=== PATIENT | female | born 1925 | race Caucasian/White ===

== ENCOUNTER 2016-07-11 08:46 | Inpatient (IN) | payer OTHER, MEDICARE ==
--- NOTE | 2016-07-11 09:09 | PDOC ---
History of Present Illness <Cezar Steele - Last Filed: 07/11/16 11:59> - History of Present Illness Initial Comments: 07/11/16 09:55 The patient is an 89 year old female with a past medical hx of diverticulitis, diverticulosis, s/p colostomy, sciatica, polymyalgia rheumatica who presents to ED complaining of a headache and bilateral leg weakness since yesterday. The patient reports she woke up yesterday with a severe headache. She notes the headache goes down the left side of her head. The patient states she attempted to get back into her bed and suddenly her legs gave out. She states her legs were not working as they normally do. She notes she was able to get into her bed. Later in the day she reports she had to crawl on the carpet and is reporting bruising to her knees and upper legs. She states she has been on Prednisone 10 mg for the past three weeks for her sciatica and polymyalgia rheumatica. She denies any paresthesias. The patient denies any chest pain, SOB The patient denies any fever, chills, nausea, vomiting PCP: Dr. Erazo <Pauline Watson - Last Filed: 07/11/16 12:25> - General Chief Complaint: Injury Stated Complaint: FALL/PAIN Time Seen by Provider: 07/11/16 09:08 Past History - Past Medical History Disorders: Yes (cystitis last 2010) HTN: Yes Liver Disease: (liver abscess 09/02) Thyroid Disease: Yes (hypothyroid) - Surgical History Orthopedic Surgery: (hip fx ORIF right side october 2010) - Psycho/Social/Smoking Cessation Hx Anxiety: No Suicidal Ideation: No Smoking History: Never smoked Have you smoked in the past 12 months: No Hx Alcohol Use: Yes (occasional) Substance Use Type: None <Cezar Steele - Last Filed: 07/11/16 11:59> <Pauline Watson - Last Filed: 07/11/16 12:25> - Past Medical History Allergies/Adverse Reactions: Allergies Allergy/AdvReac Type Severity Reaction Status Date / Time Sulfa (Sulfonamide Allergy Intermediate Hives Verified 07/11/16 09:19 Antibiotics) [Sulfa(Sulfonamide Antibiotics)] chickpeas Allergy Intermediate Swelling Uncoded 07/11/16 09:19 chocolate Allergy Intermediate Swelling Uncoded 07/11/16 09:19 ham Allergy Intermediate Swelling Uncoded 07/11/16 09:19 tuna Allergy Intermediate Swelling Uncoded 07/11/16 09:19 black beans Allergy Uncoded 07/11/16 09:19 Home Medications: Ambulatory Orders Losartan Potassium [Cozaar] 50 mg PO DAILY 01/16/14 Omeprazole [Prilosec (RX)] 20 mg PO DAILY 01/16/14 Levothyroxine [Synthroid -] 75 mcg PO DAILY #30 tablet 03/02/14 Lexapro - 20 mg PO DAILY 04/05/14 Prednisone [Deltasone -] 10 mg PO BID 04/05/14 Tylenol 650 mg PO PRN PRN 04/05/14 Gabapentin [Neurontin] 300 mg PO TID 07/11/16 Tramadol HCl/Acetaminophen [Tramadol-Acetaminophn 37.5-325] 1 each PO TID Review of Systems - Review of Systems Able to Perform ROS?: Yes Comments:: 07/11/16 09:56 GENERAL/CONSTITUTIONAL: No fever or chills. No weakness. HEAD, EYES, EARS, NOSE AND THROAT: No change in vision. No ear pain or discharge. No sore throat. CARDIOVASCULAR: No chest pain or shortness of breath. RESPIRATORY: No cough, wheezing, or hemoptysis. GASTROINTESTINAL: No nausea, vomiting, diarrhea or constipation. GENITOURINARY: No dysuria, frequency, or change in urination. MUSCULOSKELETAL: No joint or muscle swelling or pain. No neck or back pain. SKIN: +Bruising to bilateral knees and thighs. NEUROLOGIC: +Headache,bilateral leg weakness. No vertigo, loss of consciousness ENDOCRINE: No increased thirst. No abnormal weight change. HEMATOLOGIC/LYMPHATIC: No anemia, easy bleeding, or history of blood clots. ALLERGIC/IMMUNOLOGIC: No hives or skin allergy. <Pauline Watson - Last Filed: 07/11/16 12:25> *Physical Exam - Vital Signs Last Vital Signs Temp Pulse Resp BP Pulse Ox 97.1 F L 65 18 108/74 100 07/11/16 08:56 07/11/16 08:56 07/11/16 08:56 07/11/16 08:56 07/11/16 08:56 - Physical Exam Comments: 07/11/16 09:58 GENERAL: Awake, alert, and fully oriented, in no acute distress HEAD: No signs of trauma EYES: +Globe of the eye is intact, no lesion, vision preserved. PERRLA, EOMI, sclera anicteric, conjunctiva clear ENT: Auricles normal inspection, hearing grossly normal, nares patent, oropharynx clear without exudates. Moist mucosa NECK: Normal ROM, supple, no lymphadenopathy, JVD, bruits, or masses LUNGS: Breath sounds equal, clear to auscultation bilaterally. No wheezes, and no crackles HEART: Regular rate and rhythm, normal S1 and S2, no murmurs, rubs or gallops ABDOMEN: +Increased bowel sounds in all four quadrants, functioning colostomy. Soft, nontender, normoactive bowel sounds. No guarding, no rebound. No masses EXTREMITIES: Normal range of motion, no edema. No clubbing or cyanosis. No cords, erythema, or tenderness NEUROLOGICAL: +Able to lift both legs off of the bed. Cranial nerves II through XII grossly intact. Normal speech SKIN: +Vesicular rash to the ophthalmic distribution of the trigeminal nerve, not painful to touch. Bruising to the bilateral legs anteriorly and thighs, abrasions to bilateral knees that are bandaged. Warm, Dry, normal turgor <Pauline Watson - Last Filed: 07/11/16 12:25> Heart Score/ECG Review - ECG Impressions Comment:: 07/11/16 09:[address] Steele Sinus bradycardia at a rate of [address] abnormality No change in EKG from December 2013. <Pauline Watson - Last Filed: 07/11/16 12:25> ED Treatment Course - LABORATORY CBC & Chemistry Diagram: 07/11/16 10:02 07/11/16 10:02 <Cezar Steele - Last Filed: 07/11/16 11:59> - LABORATORY CBC & Chemistry Diagram: 07/11/16 10:02 07/11/16 10:02 - RADIOLOGY Radiograph Interpretation: 07/11/16 11:34 RAD/KNEE 3 POS-LEFT Left knee: Fall. Pain. AP, lateral and sunrise views reveal degenerative changes, vascular calcifications, growth arrest lines in the proximal tibia but no sign of acute fracture or subluxation. Swelling, foreign body or soft tissue air is not seen. There is no sign of an effusion. If symptoms persist, further imaging and orthopedic consultation may be of help. Impression: No acute pathology. Reported By: Parveen Ospina MD 07/11/16 1116 Right knee Xray AP, lateral and sunrise views reveal no sign of fracture, subluxation or bone destruction. There is no loss of bone density, degenerative changes, vascular calcifications and no sign of swelling, foreign body or soft tissue air. An effusion is not seen. Impression: No acute pathology. Reported By: Parveen Ospina MD 07/11/16 1117 07/11/16 12:10 Pelvis XRay Impression: Imaging reveals degenerative changes, previous right hip pinning, pelvic phleboliths but no sign of a gross fracture or subluxation. There may be some dense bowel or a left sided ostomy bag superimposed over the left iliac crest. Correlation recommended. If symptoms persist, further imaging may be of help. Reported by: Parveen Ospina MD 07/11/16 1120 Right hip Xray Impression: The hip has similar appearance to that seen on 01/31/14. Reported: Parveen Ospina MD 07/11/16 1115 Left hip Xray Limited views reveal degenerative changes, pelvic phleboliths, and no sign of a gross fracture. There are other vascular calcifications. Reported by: Parveen Ospina MD 07/11/16 1113 Chest Xray Impression: Reveals improvement in aeration since 02/11/14. There is a scoliosis , degenerative spine and shoulder changes with possible old rotator cuff injuries, clear lungs, normal heart and unfolded aorta. The angles are sharp and the soft tissues are intact. An acute chest process is not seen. Reported by: Parveen Ospina MD 07/11/16 1113 <Pauline Watson - Last Filed: 07/11/16 12:25> Medical Decision Making - Medical Decision Making 07/11/16 11:[address] Erazo at 11:19, the patients case was discussed. 07/11/16 11:[address] James at 11:31 via answering service, awaiting call back. Dr. James called back at 11:32. The patients case was discussed. Dr. James came and evaluated the patient. 07/11/16 12:18 Microblogged the Hospitalist, Dr. Kemp, at 11:45. Dr. Kemp called at 11:47, the patients case was discussed. Dr. Kemp agrees to admit the patient. 07/11/16 12:20 The patient is an 89 year old female with a past medical hx of diverticulitis, diverticulosis, s/p colostomy, sciatica, polymyalgia rheumatica who presents to ED complaining of a headache and bilateral leg weakness since yesterday. On physical exam, the patient is found to have a vesicular rash to the ophthalmic distribution of the trigeminal nerve, which appears to be shingles. The patient is able to lift both legs off of the bed. There is bruising to bilateral legs anteriorly. Extended neuro exam is deferred due to the patient's comfort. The plan is to order EKG, labs, CXR, CT head. The patient will be admitted under the Hospitalist, Dr. Kemp. The plan for admission was discussed with the patient and family who agree to the plan of admission. All questions answered. <Pauline Watson - Last Filed: 07/11/16 12:25> *DC/Admit/Observation/Transfer - Discharge Dispostion Admit: Yes - Attestations Physician Attestion: 07/11/16 09:08 I, Dr. Cezar Steele, attest that this document has been prepared under my direction and personally reviewed by me in its entirety. I further attest, that it accurately reflects all work, treatment, procedures and medical decision -making performed by me. <Cezar Steele - Last Filed: 07/11/16 11:59> - Attestations Scribe Attestion: 07/11/16 09:46 Documentation prepared by Pauline Watson, acting as manager of medical for Cezar Steele MD/DO. 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
[2016-07-11 10:16] LABS: BASOPHIL 0.2 % (0-2.0); MCH 30.2 pg (25.7-33.7); MCHC 32.2 g/dl (32.0-36.0); MEAN PLT VOLUME 7.6 fl (7.5-11.1); NEUTROPHILS 90.7 % (42.8-82.8); PLATELET COUNT 168 K/MM3 (134-434); RDW 17.5 % (11.6-15.6); WHITE BLOOD COUNT 17.5 K/mm3 (4.0-10.0)
[2016-07-11 10:58] LABS: ALBUMIN 3.8 g/dl (3.4-5.0); CALCIUM 9.7 mg/dL (8.5-10.1); COCKROFT - GAULT 24.361; CREATININE 1.6 mg/dL (0.55-1.02)
[2016-07-11 11:04] LABS: BILIRUBIN,TOTAL 1.2 mg/dL (0.2-1.0); TOT PROT 7.2 g/dl (6.4-8.2); TROPONIN I 0.19 ng/ml (0.00-0.05)
[2016-07-11 11:20] LABS: INR 0.97 (0.82-1.09); PROTHROMBIN TIME (PATIENT) 10.7 SEC (9.98-11.88)
[2016-07-11] MEDS ORDERED: SODIUM CHLORIDE 1,000 ML IV STA (12:18)
--- NOTE | 2016-07-11 12:24 | HP ---
CHIEF COMPLAINT:"my face hurts" PCP: Dr Erazo HISTORY OF PRESENT ILLNESS: This is an 89 yo F with PMH of diverticulitis s/p colostoly 3 yrs ago, sciatica , polymyalgia rheumatica, paroxysmal a fib, hx gib, hx hepatic abscess 2011 and hypothyroidism, who presents due to h/a and fall. Per daughter and patient, she was in usual health until yesterday morning, when she developed severe L sided h /a and facial pain. She was so uncomfortable that she did not eat or drink anything since. This morning she woke up feeling very weak and felt her legs give out when she tried to stand up from bed. She crawled on the floor and abraised her knees. OF note, she has been on prednisone for the past 3 weeks for her polymyalgia. this has never happened to her before. she has no history of Mi or chf. she denies f/c, n/v, chest pain, le edema, sob, palpitations or weight gain. she denies prior trauma, paresthesia or focal weakness. Denies dysuria or diarrhea. Last TTE showed some degree of diastolic heart failure ER course was notable for: (1)labs (2)cxr, hip, knee and pelvis xr (3)ivf Recent Travel: denies PAST MEDICAL HISTORY: as above PAST SURGICAL HISTORY: colostomy, ortho surgery on hips, shoulder Social History: lives alone with aid Smoking: denies Alcohol:denies Drugs: denies Family History: no cardiac history Allergies Sulfa (Sulfonamide Antibiotics) [Sulfa(Sulfonamide Antibiotics)] Allergy ( Intermediate, Verified 07/11/16 09:19) Hives chickpeas Allergy (Intermediate, Uncoded 07/11/16 09:19) Swelling chocolate Allergy (Intermediate, Uncoded 07/11/16 09:19) Swelling swelling of tongue/ diff with speech ham Allergy (Intermediate, Uncoded 07/11/16 09:19) Swelling tuna Allergy (Intermediate, Uncoded 07/11/16 09:19) Swelling swelling of tongue/ speech difficulty black beans Allergy (Uncoded 07/11/16 09:19) HOME MEDICATIONS: Home Medications Medication Instructions Recorded Losartan Potassium [Cozaar] 50 mg PO DAILY 01/16/14 Omeprazole [Prilosec (RX)] 20 mg PO DAILY 10/26/14 Levothyroxine [Synthroid -] 75 mcg PO DAILY #30 tablet 03/02/14 Lexapro - 20 mg PO DAILY 04/05/14 Prednisone [Deltasone -] 10 mg PO BID 04/05/14 Tylenol 650 mg PO PRN PRN 04/05/14 Gabapentin [Neurontin] 300 mg PO TID 07/11/16 Tramadol HCl/Acetaminophen 1 each PO TID 07/11/16 [Tramadol-Acetaminophn 37.5-325] REVIEW OF SYSTEMS CONSTITUTIONAL: Absent: fever, chills, weight change HEENT: Absent: rhinorrhea, nasal congestion, throat pain CARDIOVASCULAR: Absent: chest pain, syncope, palpitations RESPIRATORY: Absent: cough, shortness of breath GASTROINTESTINAL: Absent: abdominal pain, abdominal distension, nausea, vomiting, diarrhea GENITOURINARY: Absent: dysuria, frequency MUSCULOSKELETAL: Absent: back pain, neck pain SKIN: Absent: itching, pallor HEMATOLOGIC/IMMUNOLOGIC: Absent: frequent infections ENDOCRINE: Absent: heat intolerance, cold intolerance NEUROLOGIC: Absent: focal weakness or paresthesias, seizure PSYCHIATRIC: Absent: anxiety, depression PHYSICAL EXAMINATION Vital Signs - 24 hr 07/11/16 08:56 Temperature 97.1 F L Pulse Rate 65 Respiratory 18 Rate Blood Pressure 108/74 O2 Sat by Pulse 100 Oximetry (%) GENERAL: Awake, alert, and fully oriented, in mild distress. HEAD: L sided erythema, small vesicles by hairline, not crossing midline anteriorly or posteriorly EYES: Pupils equal, round and reactive to light, extraocular movements intact, L sclera injected. no ptosis EARS, NOSE, THROAT: Dry mucous membranes. NECK: supple without lymphadenopathy, JVD, or masses. LUNGS: mild bibasilar crackles HEART: Regular rate and rhythm, normal S1 and S2 grade 3 systolic murmur at r sternal boarder ABDOMEN: Soft, nontender, not distended, normoactive bowel sounds, no guarding, no rebound, no masses. No hepatomegaly or splenomegaly. LLQ colostoly with a piece of solid stool MUSCULOSKELETAL: No CVA tenderness. UPPER EXTREMITIES: No peripheral edema. LOWER EXTREMITIES: 1+ pulses, warm, well-perfused. No peripheral edema. bruised skin on anterior thighs, b/l knee abrasions NEUROLOGICAL: Cranial nerves II-XII intact. Normal speech. 5/5 ur strength b/ l. 5/5 plantarflexion, 4/5 dorsiflexion, 4/5 thigh flexion, 1+ patellar reflexes b/l PSYCHIATRIC: Cooperative. Good eye contact. Appropriate mood and affect. SKIN: lesions as above Laboratory Results - last 24 hr 07/11/16 07/11/16 07/11/16 10:02 10:02 10:02 WBC 17.5 H RBC 5.12 D Hgb 15.5 H D Hct 48.2 H D MCV 94.0 MCHC 32.2 RDW 17.5 H Plt Count 168 D MPV 7.6 Neutrophils % 90.7 H Lymphocytes % 3.0 L D Monocytes % 6.1 Eosinophils % 0.0 D Basophils % 0.2 D INR 0.97 Sodium 141 Potassium 4.0 Chloride 104 Carbon Dioxide 29 Anion Gap 8 BUN 39 H D Creatinine 1.6 H D Creat Clearance w eGFR 30.42 Random Glucose 132 H D Calcium 9.7 Total Bilirubin 1.2 H D AST 50 H D ALT 34 D Alkaline Phosphatase 116 D Creatine Kinase 1000 H D Troponin I 0.19 H B-Natriuretic Peptide 1766.34 H Total Protein 7.2 D Albumin 3.8 D ASSESSMENT/PLAN: This is an 89 yo F with PMH of diverticulitis s/p colostoly 3 yrs ago, sciatica , polymyalgia rheumatica, paroxysmal a fib, hx gib, hx hepatic abscess 2011 and hypothyroidism, who presents due to h/a and fall. 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 use and old age -not disseminated -valacyclovir 1000 daily renal dosing, may adjust as fenal fxn improves -opth consult appreciated, no retinal involvement, does not require iv antivirals JASS -creat 1.6 (baseline 0.6) -IV hydration -hold cozaar -trend creat Demand ischemia -trop 0.19, trend -due to denydration -ivf Skin abrasions: -bacitracin tp polymyalgia rheumatica -continue pred 10 d, neurontin, tramadol Hypothyroidism -synthroid, ppi HTN -now normotensive -norvas with hold parameters FEN NS@100 lytes stable -na restricted diet Linnea, ppi Dispo: med [facility] Problem List - Problem (1) Abnormal bruising Code(s): R23.8 - OTHER SKIN CHANGES (2) Elevated troponin level Code(s): R74.8 - ABNORMAL LEVELS OF OTHER SERUM ENZYMES (3) Generalized weakness Code(s): R53.1 - WEAKNESS (4) Hypothyroid Code(s): E03.9 - HYPOTHYROIDISM, UNSPECIFIED Qualifiers: Hypothyroidism type: acquired Qualified Code(s): E03.9 - Hypothyroidism , unspecified (5) Polymyalgia rheumatica Code(s): M35.3 - POLYMYALGIA RHEUMATICA (6) Shingles outbreak Code(s): B02.9 - ZOSTER WITHOUT COMPLICATIONS Qualifiers: 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 - New Patient This patient is new to me today: Yes Date on this admission: 07/11/16 - Critical Care Critical Care patient: No
--- NOTE | 2016-07-11 12:25 | EKG ---
Test Reason : Blood Pressure : / mmHG Vent. Rate : 059 BPM Atrial Rate : 059 BPM P-R Int : 198 ms QRS Dur : 110 ms QT Int : 428 ms P-R-T Axes : 039 -22 068 degrees QTc Int : 423 ms SINUS BRADYCARDIA MODERATE VOLTAGE CRITERIA FOR LVH, MAY BE NORMAL VARIANT NONSPECIFIC ST ABNORMALITY ABNORMAL ECG WHEN COMPARED WITH ECG OF 21-JAN-2014 09:34, PREMATURE VENTRICULAR COMPLEXES ARE NO LONGER PRESENT ABERRANT CONDUCTION IS NO LONGER PRESENT T WAVE INVERSION LESS EVIDENT IN LATERAL LEADS Confirmed by BUNNY STEELE MD ([id number]) on 07/11/2016 12:25:47 PM Referred By: Confirmed By:BUNNY STEELE MD
[2016-07-11] MEDS ORDERED: ACYCLOVIR INJECTION 1,000 MG in DEXTROSE 5%-WATER - 100 ML IVPB ONE (12:42)
--- NOTE | 2016-07-11 12:54 | CON.CARD ---
Consult Consult Specialty:: Cardiology Referred by:: Dr. Erazo Reason for Consultation:: weakness, falls, elevated bnp, elevated troponin - History of Present Illness Chief Complaint: falls, weakness History of Present Illness: 89 year old woman with a history of diverticulitis s/p colostomy 2013, Pafib, admitted with headaches, weakness, falls at home incidentally noted to have slightly elevated troponin and elevated bnp. Pt. seen and examined today, sleeping but arousable, weak. denies any chest pain prior to coming in but had an episode of chest discomfort while lying in the er stretcher that lasted a few seconds. denies any other chest pain. no palpitations. no sob. no pnd, orthopnea, or LE edema. no lightheadedness or dizziness. no syncope. - History Source History Provided By: Patient, Family Member Limitations to Obtaining History: Physical Impairment - Past Medical History Cardio/Vascular: Yes: AFIB, HTN, Hyperlipdemia Gastrointestinal: Yes: Diverticulosis, GERD Infectious Disease: Yes: Other (LIVER ABSCESS) Psych: Yes: Depression Endocrine: Yes: Hypothyroidism - Past Surgical History Past Surgical History: Yes: Hysterectomy - Alcohol/Substance Use Hx Alcohol Use: Yes (occasional) - Smoking History Smoking history: Never smoked Have you smoked in the past 12 months: No - Social History Usual Living Arrangement: Alone ADL: Independent History of Recent Travel: No Home Medications - Allergies Allergies/Adverse Reactions: Allergies Allergy/AdvReac Type Severity Reaction Status Date / Time Sulfa (Sulfonamide Allergy Intermediate Hives Verified 07/11/16 09:19 Antibiotics) [Sulfa(Sulfonamide Antibiotics)] chickpeas Allergy Intermediate Swelling Uncoded 07/11/16 09:19 chocolate Allergy Intermediate Swelling Uncoded 07/11/16 09:19 ham Allergy Intermediate Swelling Uncoded 07/11/16 09:19 tuna Allergy Intermediate Swelling Uncoded 07/11/16 09:19 black beans Allergy Uncoded 07/11/16 09:19 - Home Medications Home Medications: Ambulatory Orders Losartan Potassium [Cozaar] 50 mg PO DAILY 01/16/14 Omeprazole [Prilosec (RX)] 20 mg PO DAILY 01/16/14 Levothyroxine [Synthroid -] 75 mcg PO DAILY #30 tablet 03/02/14 Lexapro - 20 mg PO DAILY 04/05/14 Prednisone [Deltasone -] 10 mg PO BID 04/05/14 Tylenol 650 mg PO PRN PRN 04/05/14 Gabapentin [Neurontin] 300 mg PO TID 07/11/16 Tramadol HCl/Acetaminophen [Tramadol-Acetaminophn 37.5-325] 1 each PO TID Family Disease History - Family Disease History Family History: Denies Review of Systems - Review of Systems Constitutional: reports: Malaise, Weakness. denies: No Symptoms, Chills, Diaphoresis, Fever, Lethargy, Loss of Appetite, Night Sweats, Unintentional Wgt. Loss, Other Eyes: reports: Other (rash over L orbit and face). denies: No Symptoms, Blind Spots, Blurred Vision, Double Vision, Eye Pain, Floaters, Photophobia, Recent Change in Vision HENT: denies: No Symptoms, Difficult Swallowing, Ear Discharge, Ear Pain, Epistaxis, Gingival Bleeding, Hearing Loss, Mouth Swelling, Nasal Congestion, Ocular Prosthesis, Throat Pain, Toothache, Ringing in Ears, Other Neck: denies: No Symptoms, Decreased ROM, Lumps, Pain on Movement, Stiffness, Swollen Glands, Tenderness, Other Cardiovascular: reports: Chest Pain. denies: No Symptoms, Edema, Palpitations, Shortness of Breath, Other Respiratory: denies: No Symptoms, Cough, Exercise Intolerance, Hemoptysis, Orthopnea, PND, Snoring, SOB, SOB on Exertion, Wheezing, Other Gastrointestinal: denies: No Symptoms, Abdominal Pain, Bloating, Constipation, Diarrhea, Dysphagia, Indigestion, Melena, Nausea, Rectal Bleeding, Vomiting, Vomiting Blood, Other Genitourinary: denies: No Symptoms, Burning, Discharge, Dysuria, Flank Pain, Frequency, Hematuria, Incontinence, Lesions, Menses, Pain, Testicular Mass, Testicular Pain, Testicular Swelling, Urgency, Vaginal Bleeding, Other Breasts: denies: No Symptoms Reported, See HPI, Breast Implants, Discharge from Nipple, Lumps, Pain, Skin Changes, Other Musculoskeletal: reports: Muscle Weakness. denies: No Symptoms, Back Pain, Crepitus, Decreased ROM, Extremity Pain, Joint Pain, Joint Swelling, Muscle Pain , Muscle Cramps, Other Integumentary: denies: No Symptoms, Blister, Bruising, Change in Color, Eczema, Erythema, Incision, Lesions, Lump, Pallor, Pruritis, Rash, Wound, Other Neurological: denies: No Symptoms, Change in LOC, Change in Speech, Confusion, Dizziness, Headache, Incoordination, Numbness, Parasthesia, Pre-Existing Deficit , Seizure, Syncope, Tremors, Unsteady Gait, Weakness, Other Endocrine: denies: No Symptoms, Excessive Sweating, Flushing, Increased Hunger, Increased Thirst, Intolerance to Cold, Intolerance to Heat, Unexplained Weight Gain, Unexplained Weight Loss, Other Hematology/Lymphatic: denies: No Symptoms, Easily Bruised, Excessive Bleeding, Swollen Glands, Other Psychiatric: denies: No Symptoms, Altered Sleep Pattern, Anxiety, Depression, Hallucinations, Panic, Paranoia, Suicidal, Other - Risk Factors Known Risk Factors: Yes: Age, Hypercholesterolemia, Hypertension Vital Signs: Vital Signs Temperature 97.1 F L 07/11/16 08:56 Pulse Rate 65 07/11/16 08:56 Respiratory Rate 18 07/11/16 08:56 Blood Pressure 108/74 07/11/16 08:56 O2 Sat by Pulse Oximetry (%) 100 07/11/16 08:56 Constitutional: Yes: Well Nourished, No Distress, Calm Eyes: Yes: Other (rash over L face). No: WNL, Conjunctiva Clear, EOM Intact, Cataracts, Diplopia, Occular Prosthesis, PERRL, Ptosis, Sclera Icterus, Tearing HENT: Yes: WNL, Atraumatic, Normocephalic Neck: Yes: WNL, Supple, Trachea Midline Respiratory: Yes: WNL, Regular, CTA Bilaterally. No: Rales, Rhonchi, Wheezes Gastrointestinal: Yes: WNL, Normal Bowel Sounds, Soft. No: Distention, Tenderness Renal/: Yes: WNL Cardiovascular: Yes: WNL, Regular Rate and Rhythm. No: Bradycardia, Tachycardia , Pulse Irregular, Gallop, Rub, Varicosities JVD: No Carotid Bruit: No PMI: Non-Displaced Heart Sounds: Yes: S1, S2. No: Split S2, S3, S4, Clicks, Gallop, Rub, Bruit Murmur: No: Systolic Murmur, Diastolic Murmur Musculoskeletal: Yes: Muscle Weakness Extremities: Yes: WNL Edema: No Peripheral Pulses WNL: Yes Peripheral Pulses: 2+ Left Doralis Pedis, 2+ Right Dorsalis Pedis Integumentary: Yes: WNL Neurological: Yes: Oriented, Weakness Psychiatric: Yes: Alert, Oriented - Other Data Labs, Other Data: INR, PTT INR 0.97 (0.82-1.09) 07/11/16 10:02 ekg-sinus bradycardia 59bpm, LVH, NSST, possible lateral ischemia, no sig change from ekg 2014 Echo: Pending Imaging - Results Chest X-ray: Report Reviewed, Image Reviewed EKG: Report Reviewed, Image Reviewed Other: Report Reviewed, Image Reviewed Assessment/Plan 89 year old woman with a history of diverticulitis s/p colostomy 2014, Pafib, admitted with headaches, weakness, falls at home incidentally noted to have slightly elevated troponin and elevated bnp. elevated troponin and bnp -troponin not sig elevated, likely secondary to dehydration, elevated CK, FEDE -pt not in decompensated CHF -IVF hydration -check Echo -hold off on diuresis, does not require full AC at this time -ekg unchanged from ekg 2013 -does not require telemetry at this point -trend serial cardiac enzymes Elevated CK -likely secondary to falls, rhabdo -hydration, monitor CK levels Paroxysmal AFib -taken off AC 2013 -NSR/Sinus olive on presentation -does not require AV balwinder blockers HTN-normal, low normal -hold anti-htn meds Possible Zoster L orbit -optho eval -consider ID eval
[2016-07-11] MEDS ORDERED: valACYclovir HCL 1000 MG TABLET PO ONE (13:07)
--- NOTE | 2016-07-11 14:22 | PN ---
Teaching Attending Note Name of Resident: Lucina Brown ATTENDING PHYSICIAN STATEMENT I saw and evaluated the patient. I reviewed the resident's note and discussed the case with the resident. I agree with the resident's findings and plan as documented. SUBJECTIVE: CC: L sided MALDONADO , and fall yesterday . HPI: 89 y/o lady with h/o HTN, ruptured diverticulum s/p bowel resection and colostomy in 2013 , h/o P A fib, PMR, who presented with L sided MALDONADO , and fall. she felt L sided MALDONADO yesterday , but denied any change in her vision. MALDONADO subsided yesterday but again had severe pain in L scalp with redness in skin over that area today. yesterday , she had a fall , as her knees gave out , no LOC or light headedness or CP or palpitation before or after . she was not able to get up alone, and had to crawl on her knees to next room to grab phone . neighbour then helped her. she was down x 20 min only. she denies recurrent falls. poor po intake lately x2 days OBJECTIVE: NAD , Awake, alert and oriented. pleasant and cooperative HEENT: dry MM, skin around L orbit, and yazidism and scalp with erythema and tenderness to palpation , with small vesicles on yazidism near hair line . no involvement of ear or external ear canal . eyes with round equal pupils , and congested conjunctiva in L eye . nl EOMI CV: RRR, 2/6 SM at RUSB. no JVD Lungs : CTAB ext : no edema . has bruising o b/l anterior thighs. abrasions on knees. DP 2+ R, 1+ L Abd : soft, NT, nl BS , old scar on mid abd and L colostomy bag . 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 She was found to have Herpes zoster, JASS, and mild rhabdo 1- L sided facial herpes zoster. L conunctiva is congested but there is no retinitis , uviitis or scleritis. - will start po valcayclovir 1000 mg daily per her weight and renal function ( spoke to pharmacist ) . retina is not involved , so unlikely to need IV antiviral - will control pain . - she is already on steroids for PMR. any way evidence of benefit is not strong - might start neurontin fro post herpetic pain - ID consult - await Ophthalmology Recs . 2- JASS : pt is volume depleted clinically. although BNP is elevated , she does not appear fluid overloaded. - give IVF and monitor while on valcyclovir 3- mild rhabdomyolysis: UA is not available yet. - IVF 4- Leukocytosis: likely reactive . no evidenc eof PNA , no urinary complaints . no cough or other source of infection - uA pending - hold off Abx .- repeat in am 5-Trop elevation , likely due to JASS. no CP or acute EKG changes to suspect ACS. EKG with L axis, TWI in AVL , and J point elevation in septal leads. compared to one in 2014 monitor 6- h/o P A fib, off Ag due to GI bleed no need for BB at this point 7- monitor elevated LFTs ( likely due to Rhabdo ) HLOC
[2016-07-11] MEDS ORDERED: ACYCLOVIR INJECTION 1,000 MG in DEXTROSE 5%-WATER - 250 ML IVPB ONE (14:45)
[2016-07-11] MEDS ORDERED: ACETAMINOPHEN 325 MG TABLET (FP) PO PRN (16:03)
--- NOTE | 2016-07-11 16:03 | CONSULT ---
Consult Consult Specialty:: infectious diseases Reason for Consultation:: herpes - History of Present Illness Chief Complaint: weakness, History of Present Illness: 89 y/o female with multiple medical problems including h/o diverticulitis s/p colostomy 3 yrs ago, sciatica, polymyalgia rheumatica, paroxysmal a fib, hx gib , hx hepatic abscess 2011 and hypothyroidism,was brought to the hospital because of fall and weakness. patient has been on prednisone for last 3 weeks for her flare of polymyalgia patient was so weak that she had to crawl on the floor and suffered abrasion to her knee joint patient also has developed left sided facial herpes zoster and suffered some abrasion to the thigh patient also has it extending to the nose some small vesicles can be seen there patient was evaluated by the opthalm and according to him there is no involvement of the eye patient denies any headache fevers nausea or vomiting - History Source History Provided By: Patient Limitations to Obtaining History: No Limitations - Past Medical History Cardio/Vascular: Yes: AFIB, HTN, Hyperlipdemia Gastrointestinal: Yes: Diverticulosis, GERD Infectious Disease: Yes: Other (LIVER ABSCESS) Psych: Yes: Depression Endocrine: Yes: Hypothyroidism - Past Surgical History Past Surgical History: Yes: Hysterectomy - Alcohol/Substance Use Hx Alcohol Use: Yes (occasional) - Smoking History Smoking history: Never smoked Have you smoked in the past 12 months: No - Social History Usual Living Arrangement: Alone ADL: Independent History of Recent Travel: No Home Medications - Allergies Allergies/Adverse Reactions: Allergies Allergy/AdvReac Type Severity Reaction Status Date / Time Sulfa (Sulfonamide Allergy Intermediate Hives Verified 07/11/16 09:19 Antibiotics) [Sulfa(Sulfonamide Antibiotics)] chickpeas Allergy Intermediate Swelling Uncoded 07/11/16 09:19 chocolate Allergy Intermediate Swelling Uncoded 07/11/16 09:19 ham Allergy Intermediate Swelling Uncoded 07/11/16 09:19 tuna Allergy Intermediate Swelling Uncoded 07/11/16 09:19 black beans Allergy Uncoded 07/11/16 09:19 - Home Medications Home Medications: Ambulatory Orders Losartan Potassium [Cozaar] 25 mg PO DAILY 01/16/14 Omeprazole [Prilosec (RX)] 20 mg PO DAILY 01/16/14 Levothyroxine [Synthroid -] 75 mcg PO DAILY #30 tablet 03/02/14 Escitalopram Oxalate [Lexapro -] 20 mg PO BID 04/05/14 Prednisone [Deltasone -] 5 mg PO BID 04/05/14 Gabapentin [Neurontin] 300 mg PO QID 07/11/16 Tramadol HCl/Acetaminophen [Tramadol-Acetaminophn 37.5-325] 1 each PO QID Review of Systems - Review of Systems Constitutional: reports: Lethargy, Weakness Eyes: reports: Other (redness of the left eye vesicles around the eye left side, extending to the nose) HENT: denies: Hearing Loss Cardiovascular: reports: No Symptoms Respiratory: reports: No Symptoms Gastrointestinal: reports: No Symptoms Musculoskeletal: reports: Other (knee pain) Integumentary: reports: Bruising (on both knee joint) Neurological: reports: No Symptoms Endocrine: reports: No Symptoms Hematology/Lymphatic: reports: No Symptoms Psychiatric: reports: No Symptoms Physical Exam Vital Signs: Vital Signs Temperature 97.1 F L 07/11/16 08:56 Pulse Rate 54 L 07/11/16 15:24 Respiratory Rate 18 07/11/16 15:24 Blood Pressure 139/70 07/11/16 15:24 O2 Sat by Pulse Oximetry (%) 97 07/11/16 15:24 Constitutional: Yes: Calm, Mild Distress, Thin Eyes: Yes: Tearing (of left eye,redness of left eye) HENT: Yes: Atraumatic, Normocephalic Neck: Yes: Supple, Trachea Midline Cardiovascular: Yes: Regular Rate and Rhythm Respiratory: Yes: Regular, CTA Bilaterally Gastrointestinal: Yes: Normal Bowel Sounds, Soft Musculoskeletal: Yes: WNL Extremities: Yes: Other (bruising on both knee joint bruising nad redness of both thigh) Integumentary: Yes: Erythema, Other Neurological: Yes: Alert, Oriented Psychiatric: Yes: Alert, Oriented Imaging - Results Chest X-ray: Report Reviewed, Image Reviewed X-ray: Report Reviewed, Image Reviewed Cat Scan: Report Reviewed, Image Reviewed Assessment/Plan Problem List - Problem (1) Abnormal bruising Code(s): R23.8 - OTHER SKIN CHANGES (2) Elevated troponin level Code(s): R74.8 - ABNORMAL LEVELS OF OTHER SERUM ENZYMES (3) Generalized weakness Code(s): R53.1 - WEAKNESS (4) Hypothyroid Code(s): E03.9 - HYPOTHYROIDISM, UNSPECIFIED Qualifiers: Hypothyroidism type: acquired Qualified Code(s): E03.9 - Hypothyroidism , unspecified (5) Polymyalgia rheumatica Code(s): M35.3 - POLYMYALGIA RHEUMATICA (6) Shingles outbreak Code(s): B02.9 - ZOSTER WITHOUT COMPLICATIONS Qualifiers: Herpes zoster complications: with ocular involvement Herpes zoster ocular complication detail: unspecified herpes zoster eye disease Qualified Code(s): B02.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
[2016-07-11] MEDS ORDERED: valACYclovir HCL 500 MG TABLET (FP) PO SCH (16:30)
[2016-07-11] MEDS: traMADol HCL 50 MG TABLET PO PRN (16:56)
[2016-07-11 17:17] VITALS: BMI 25.1
[2016-07-11] MEDS: CLINDAMYCIN HCL 150 MG CAPSULE (FP) PO SCH (17:59)
[2016-07-11] MEDS: SODIUM CHLORIDE 1,000 ML IV SCH (18:00)
[2016-07-11] MEDS ORDERED: AMPICILLIN NA/SULBACTAM NA 3 GM in SODIUM CHLORIDE 100 ML IVPB SCH (18:00)
[2016-07-11] MEDS ORDERED: PATIENT'S OWN MEDICATION (NON-FORMULARY) (Tramadol Hcl/Acetaminophen [Tramadol-Acetaminoph PO SCH (22:00)
[2016-07-11] MEDS ORDERED: predniSONE 10 MG TABLET (UD) PO SCH (22:00)
[2016-07-11] MEDS: CLOTRIMAZOLE 1% CREAM 15 GM TUBE TP SCH (22:36)
[2016-07-11] MEDS: ENOXAPARIN NA (PORCINE) 30 MG/0.3 ML DISP.SYRIN SQ SCH (22:36)
[2016-07-11] MEDS: GABAPENTIN 300 MG CAPSULE (FP) PO SCH (22:36)
[2016-07-12] MEDS: CLINDAMYCIN HCL 150 MG CAPSULE (FP) PO SCH ×4 (00:11→18:06)
[2016-07-12 01:29] LABS: URINE APPEARANCE CLOUDY; URINE BILIRUBIN NEGATIVE (NEGATIVE); URINE COLOR DKYELLOW; URINE GLUCOSE (UA) NEGATIVE (NEGATIVE); URINE KETONE NEGATIVE (NEGATIVE); URINE NITRITE POSITIVE (NEGATIVE); URINE UROBILINOGEN NEGATIVE E.U./dl (0.2-1.0)
[2016-07-12 01:32] LABS: URINE BLOOD 3+ (NEGATIVE); URINE LEUK ESTERASE 3+ (NEGATIVE); URINE PROTEIN 1+ (NEGATIVE)
[2016-07-12 01:45] LABS: URINE BACTERIA MANY /hpf (NONE SEEN); URINE HYALINE CAST 5 /lpf; URINE MUCUS MODERATE; URINE RBC 91 /hpf (0-3); URINE WBC 379 /hpf (3-5)
[2016-07-12] MEDS: SODIUM CHLORIDE 1,000 ML IV SCH ×2 (03:40→18:07)
[2016-07-12] MEDS: traMADol HCL 50 MG TABLET PO PRN (05:45)
[2016-07-12] MEDS: GABAPENTIN 300 MG CAPSULE (FP) PO SCH ×3 (05:46→21:42)
[2016-07-12] MEDS: LEVOTHYROXINE NA 75 MCG TABLET (FP) PO SCH (06:01)
[2016-07-12 07:14] LABS: CALCIUM 8.1 mg/dL (8.5-10.1); COCKROFT - GAULT 65.875; CREATININE 0.6 mg/dL (0.55-1.02); PHOSPHOROUS 1.7 mg/dL (2.5-4.9)
[2016-07-12 07:32] LABS: MCH 31.2 pg (25.7-33.7); MCHC 33.7 g/dl (32.0-36.0); MEAN CELL VOLUME 92.4 fl (80-96); MEAN PLT VOLUME 7.7 fl (7.5-11.1); PLATELET COUNT 122 K/MM3 (134-434); RDW 17.3 % (11.6-15.6); WHITE BLOOD COUNT 8.3 K/mm3 (4.0-10.0)
--- NOTE | 2016-07-12 09:11 | PN ---
Progress Note, Physician Chief Complaint: left sided facial pain - Current Medication List Current Medications: Active Medications Acetaminophen (Tylenol -) 650 mg PO Q8H PRN PRN Reason: FEVER OR PAIN Amlodipine Besylate (Norvasc -) 5 mg PO DAILY [facility] Bacitracin (Bacitracin -) 1 applic TP DAILY [facility] Clindamycin HCl (Cleocin -) 300 mg PO Q6HPO [facility] Last Admin: 07/12/16 05:50 Dose: Not Given Clotrimazole (Lotrimin 1% Cream -) 1 applic TP BID [facility] Last Admin: 07/11/16 22:36 Dose: 1 applic Enoxaparin Sodium (Lovenox -) 30 mg SQ BID [facility] Last Admin: 07/11/16 22:36 Dose: Not Given Escitalopram Oxalate (Lexapro -) 20 mg PO DAILY [facility] Gabapentin (Neurontin -) 300 mg PO TID [facility] Last Admin: 07/12/16 05:46 Dose: 300 mg Sodium Chloride (Normal Saline -) 1,000 mls @ 100 mls/hr IV ASDIR [facility] Last Admin: 07/12/16 03:40 Dose: 100 mls/hr Levothyroxine Sodium (Synthroid -) 75 mcg PO DAILY@0700 [facility] Last Admin: 07/12/16 06:01 Dose: 75 mcg Pantoprazole Sodium (Protonix -) 20 mg PO DAILY [facility] Prednisone (Deltasone -) 10 mg PO DAILY [facility] Tramadol HCl (Ultram -) 50 mg PO Q8H PRN PRN Reason: PAIN Last Admin: 07/12/16 05:45 Dose: 50 mg Valacyclovir HCl (Valtrex -) 1,000 mg PO DAILY [facility] Last Admin: 07/11/16 16:56 Dose: 1,000 mg - Objective Vital Signs: Vital Signs Temperature 98 F 07/12/16 06:36 Pulse Rate 60 07/12/16 06:36 Respiratory Rate 60 H 07/12/16 06:36 Blood Pressure 150/76 07/12/16 06:36 O2 Sat by Pulse Oximetry (%) 97 07/11/16 21:00 Constitutional: Yes: No Distress HENT: Yes: Other (zoster type rash left face) Cardiovascular: Yes: Regular Rate and Rhythm Respiratory: Yes: CTA Bilaterally Edema: No Neurological: Yes: Alert, Oriented Labs: CBC, BMP 07/12/16 06:05 07/12/16 06:05 INR, PTT INR 0.97 (0.82-1.09) 07/11/16 10:02 Laboratory Tests 07/11/16 07/11/16 07/12/16 10:02 21:40 06:05 WBC 8.3 D Hct 38.3 D Plt Count 122 L D Potassium Creatinine Magnesium Troponin I 0.19 H 0.16 H 07/12/16 06:05 WBC Hct Plt Count Potassium 3.9 Creatinine 0.6 D Magnesium 2.0 D Troponin I Assessment/Plan Assessment/Plan 89 year old woman with a history of diverticulitis s/p colostomy 2014, Pafib, admitted with headaches, weakness, falls at home incidentally noted to have slightly elevated troponin and elevated bnp. elevated troponin and bnp -troponin not sig elevated, likely secondary to dehydration, elevated CK, FEDE -pt not in decompensated CHF -Echo normal E -hold off on diuresis, does not require full AC at this time -ekg unchanged from ekg 2013 Elevated CK -likely secondary to falls, rhabdo -hydration, monitor CK levels Paroxysmal AFib -taken off AC 2014 -NSR now -does not require AV balwinder blockers HTN-normal, low normal -hold anti-htn meds Zoster L orbit -optho eval and f/u -treatment as per ID Please call over weekend if needed.
[2016-07-12] MEDS ORDERED: PATIENT'S OWN MEDICATION (NON-FORMULARY) (Omeprazole Pediatric Solution 20 MG) PO SCH (10:00)
[2016-07-12] MEDS ORDERED: ESCITALOPRAM OXALATE 20 MG TABLET (FP) PO SCH (10:00)
[2016-07-12] MEDS ORDERED: ESCITALOPRAM OXALATE 10 MG TABLET (FP) ONE (10:08)
[2016-07-12] MEDS: LACTOBACILLUS ACIDOPHILUS 1 EACH TAB (FP) PO SCH (10:37)
[2016-07-12] MEDS: PANTOPRAZOLE 20 MG TABLET (FP) PO SCH (10:37)
[2016-07-12] MEDS: predniSONE 10 MG TABLET (UD) PO SCH (10:37)
[2016-07-12] MEDS: amLODIPine BESYLATE 5 MG TABLET (FP) PO SCH (10:38)
[2016-07-12] MEDS: CLOTRIMAZOLE 1% CREAM 15 GM TUBE TP SCH ×2 (10:38→21:41)
[2016-07-12] MEDS: ESCITALOPRAM OXALATE 20 MG TABLET (FP) PO SCH (10:38)
--- NOTE | 2016-07-12 10:41 | PN ---
Progress Note, Physician History of Present Illness: patient feeling very weak' c/o of headache vesicles look more inflamed - Current Medication List Current Medications: Active Medications Acetaminophen (Tylenol -) 650 mg PO Q8H PRN PRN Reason: FEVER OR PAIN Amlodipine Besylate (Norvasc -) 5 mg PO DAILY [facility] Bacitracin (Bacitracin -) 1 applic TP DAILY [facility] Clindamycin HCl (Cleocin -) 300 mg PO Q6HPO [facility] Last Admin: 07/12/16 05:50 Dose: Not Given Clotrimazole (Lotrimin 1% Cream -) 1 applic TP BID [facility] Last Admin: 07/11/16 22:36 Dose: 1 applic Enoxaparin Sodium (Lovenox -) 30 mg SQ BID [facility] Last Admin: 07/11/16 22:36 Dose: Not Given Escitalopram Oxalate (Lexapro -) 20 mg PO DAILY [facility] Gabapentin (Neurontin -) 300 mg PO TID [facility] Last Admin: 07/12/16 05:46 Dose: 300 mg Sodium Chloride (Normal Saline -) 1,000 mls @ 100 mls/hr IV ASDIR [facility] Last Admin: 07/12/16 03:40 Dose: 100 mls/hr Acyclovir 320 mg/ Dextrose 106.4 mls @ 100 mls/hr IVPB Q8H-IV [facility] Lactobacillus Acidophilus (Bacid -) 1 tab PO DAILY [facility] Levothyroxine Sodium (Synthroid -) 75 mcg PO DAILY@0700 [facility] Last Admin: 07/12/16 06:01 Dose: 75 mcg Pantoprazole Sodium (Protonix -) 20 mg PO DAILY [facility] Prednisolone Acetate (Pred Mild 0.12% -) 2 drop OS QID [facility] Prednisone (Deltasone -) 10 mg PO DAILY [facility] Tramadol HCl (Ultram -) 50 mg PO Q8H PRN PRN Reason: PAIN Last Admin: 07/12/16 05:45 Dose: 50 mg - Objective Vital Signs: Vital Signs Temperature 98 F 07/12/16 06:36 Pulse Rate 60 07/12/16 06:36 Respiratory Rate 60 H 07/12/16 06:36 Blood Pressure 150/76 07/12/16 06:36 O2 Sat by Pulse Oximetry (%) 97 07/11/16 21:00 Constitutional: Yes: Calm, Mild Distress Eyes: Yes: Other (herpes zoster infection around left eye left eye looks more red) Cardiovascular: Yes: S1, S2 Respiratory: Yes: Regular, CTA Bilaterally Gastrointestinal: Yes: Normal Bowel Sounds, Soft Musculoskeletal: Yes: WNL Extremities: Yes: WNL Integumentary: Yes: Erythema Wound/Incision: Yes: Clean/Dry, Other Neurological: Yes: Alert, Oriented Psychiatric: Yes: Alert, Oriented Labs: CBC, BMP 07/12/16 06:05 07/12/16 06:05 INR, PTT INR 0.97 (0.82-1.09) 07/11/16 10:02 Assessment/Plan Problem List - Problem (1) Abnormal bruising Code(s): R23.8 - OTHER SKIN CHANGES (2) Elevated troponin level Code(s): R74.8 - ABNORMAL LEVELS OF OTHER SERUM ENZYMES (3) Generalized weakness Code(s): R53.1 - WEAKNESS (4) Hypothyroid Code(s): E03.9 - HYPOTHYROIDISM, UNSPECIFIED Qualifiers: Hypothyroidism type: acquired Qualified Code(s): E03.9 - Hypothyroidism , unspecified (5) Polymyalgia rheumatica Code(s): M35.3 - POLYMYALGIA RHEUMATICA (6) Shingles outbreak Code(s): B02.9 - ZOSTER WITHOUT COMPLICATIONS Qualifiers: Herpes zoster complications: with ocular involvement Herpes zoster ocular complication detail: unspecified herpes zoster eye disease Qualified Code(s): B02.30 - Zoster ocular disease, unspecified (7) Diastolic CHF Code(s): I50.30 - UNSPECIFIED DIASTOLIC (CONGESTIVE) HEART FAILURE (8) PAF (paroxysmal atrial fibrillation) Code(s): I48.0 - PAROXYSMAL ATRIAL FIBRILLATION (9) Dehydration Code(s): E86.0 - DEHYDRATION patient has been started on valgancyclovir plan continue current mgmt acylovir iv monitor headache currently no signs pain while movement of the head,some pain present when you move the head to right side
[2016-07-12] MEDS: WATER IVPB SCH ×2 (11:43→18:07)
[2016-07-12] MEDS: ACYCLOVIR IVPB SCH ×2 (11:43→18:07)
[2016-07-12] MEDS: DEXTROSE 5% IVPB SCH ×2 (11:43→18:07)
[2016-07-12] MEDS: prednisoLONE ACETATE 0.12% OPTH SUSP- 5 ML BOTTLE OS SCH ×3 (13:31→22:13)
[2016-07-12] MEDS: ENOXAPARIN NA (PORCINE) 30 MG/0.3 ML DISP.SYRIN SQ SCH ×3 (13:32→21:48)
[2016-07-12] MEDS: BACITRACIN 30 GM TUBE TOPICAL OINTMENT TP SCH (13:32)
--- NOTE | 2016-07-12 15:06 | PN ---
Teaching Attending Note Name of Resident: Lucina Brown ATTENDING PHYSICIAN STATEMENT I saw and evaluated the patient. I reviewed the resident's note and discussed the case with the resident. I agree with the resident's findings and plan as documented. SUBJECTIVE: no fever or chills, had MALDONADO last night , but now resolved.. cont to have pain in skin on L judaism and scalp OBJECTIVE: NAD, Awake, alert and oriented. pleasant and cooperative HEENT: MMM, skin around L orbit, and judaism and scalp with erythema and tenderness to palpation , with small vesicles on judaism near hair line . no involvement of ear or external ear canal . now rash reaches tip of nose and mid line on forehead .eyes with round equal pupils , and congested conjunctiva in L eye . nl EOMI. CV: RRR, 2/6 SM at RUSB. no JVD Lungs: CTAB Ext : no edema . has bruising b/l anterior thighs. abrasions on knees with bacitracin ointment on . DP 2+ R, 1+ L Abd : soft, NT, nl BS , old scar on mid abd and L colostomy bag . 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 She was found to have Herpes zoster, JASS, and mild rhabdo 1- L sided facial herpes zoster. with ivolvement of eye ( conjunctivitis ) . Now with rash reaching mid line - Change Valacyclovir to IV acyclovir to treat disseminated herpes zoster - steroids drops to the L eye - pain mgt - she is already on steroids for PMR. any way evidence of benefit is not strong - prophylactic Abx given eye involvement - will ask ophth reeval - MALDONADO has resolved , and she has no signs of encephalitis or meningitis . if MALDONADO is persistent will obtain MRI 2- JASS : Cr improved. cont iVF especially with IV acyclovir cont to hold ARB 3- mild rhabdomyolysis: - IVF 4- Leukocytosis: likely reactive . urine might be suggestive of UTI, but will wait for culture any way on Abx 5-Trop elevation , likely due to JASS. no CP or acute EKG changes to suspect ACS. 6- H/o P A fib, off AC due to GI bleed no need for BB at this point 7- monitor elevated LFTs ( likely due to Rhabdo ) HLOC
--- NOTE | 2016-07-12 15:49 | PN ---
Addendum entered and electronically signed by Lucina Brown RES 07/13/16 07: 56: severe dehydration incorrect. It is severe volume depletion Original Note: Physical Exam: SUBJECTIVE: Patient seen and examined Patient resting in bed, nad. afebrile and hemodynamically stable. aaox3. refused lovenox and abx last night. States she has diffuse body ache and l sided facial and scalp pain, denies h/a, f/c, n/v, confusion, palpitations, chest pain, sob, difficulty swallowing, abd pain, diarrhea, dysuria. OBJECTIVE: Vital Signs Period Temp Pulse Resp BP Sys/Arriaza Pulse Ox Last 24 Hr 97.9 F-98.8 F 60-66 16-78 124-180/59-80 97-97 GENERAL: Awake, alert, and fully oriented, in mild distress. HEAD: L sided erythema, small vesicles by hairline, involving nose EYES: Pupils equal, round and reactive to light, extraocular movements intact, L sclera more injected. no ptosis, no change in vision EARS, NOSE, THROAT: Dry mucous membranes. NECK: supple without lymphadenopathy, JVD, or masses. LUNGS: mild bibasilar crackles HEART: Regular rate and rhythm, normal S1 and S2 grade 3 systolic murmur at r sternal boarder ABDOMEN: Soft, nontender, not distended, normoactive bowel sounds, no guarding, no rebound, no masses. No hepatomegaly or splenomegaly. LLQ colostoly MUSCULOSKELETAL: No CVA tenderness. UPPER EXTREMITIES: No peripheral edema. LOWER EXTREMITIES: 1+ pulses, warm, well-perfused. No peripheral edema. bruised skin on anterior thighs, b/l knee abrasions NEUROLOGICAL: Cranial nerves II-XII intact. Normal speech. 5/5 ur strength b/ l. 5/5 plantarflexion, 4+/5 dorsiflexion, 4+/5 thigh flexion, 1+ patellar reflexes b/l PSYCHIATRIC: Cooperative. Good eye contact. Appropriate mood and affect. SKIN: lesions as above Laboratory Results - last 24 hr 07/11/16 07/12/16 07/12/16 21:40 00:01 06:05 WBC 8.3 D RBC 4.14 Hgb 12.9 D Hct 38.3 D MCV 92.4 MCHC 33.7 RDW 17.3 H Plt Count 122 L D MPV 7.7 Sodium Potassium Chloride Carbon Dioxide Anion Gap BUN Creatinine Random Glucose Calcium Phosphorus Magnesium Troponin I 0.16 H Urine Color Dkyellow Urine Appearance Cloudy Urine pH 5.0 Ur Specific [place] 1.019 Urine Protein 1+ H Urine Glucose (UA) Negative Urine Ketones Negative Urine Blood 3+ H Urine Nitrite Positive Urine Bilirubin Negative Urine Urobilinogen Negative Ur Leukocyte Esterase 3+ H Urine RBC 91 Urine WBC 379 Ur Epithelial Cells Rare Urine Bacteria Many Hyaline Casts 5 Urine Mucus Moderate 07/12/16 06:05 WBC RBC Hgb Hct MCV MCHC RDW Plt Count MPV Sodium 143 Potassium 3.9 Chloride 109 H Carbon Dioxide 27 Anion Gap 7 L BUN 25 H D Creatinine 0.6 D Random Glucose 87 D Calcium 8.1 L Phosphorus 1.7 L D Magnesium 2.0 D Troponin I Urine Color Urine Appearance Urine pH Ur Specific [place] Urine Protein Urine Glucose (UA) Urine Ketones Urine Blood Urine Nitrite Urine Bilirubin Urine Urobilinogen Ur Leukocyte Esterase Urine RBC Urine WBC Ur Epithelial Cells Urine Bacteria Hyaline Casts Urine Mucus Active Medications Generic Name Dose Route Start Last Admin Trade Name Freq PRN Reason Stop Dose Admin Acetaminophen 650 mg 07/11/16 16:03 Tylenol - PO Q8H PRN FEVER OR PAIN Amlodipine Besylate 5 mg 07/12/16 10:00 07/12/16 10:38 Norvasc - PO 5 mg DAILY [facility] Administration Bacitracin 1 applic 07/12/16 10:00 07/12/16 13:32 Bacitracin - TP 1 applic DAILY [facility] Administration Clindamycin HCl 300 mg 07/11/16 18:00 07/12/16 13:32 Cleocin - PO 300 mg Q6HPO [facility] Administration Clotrimazole 1 applic 07/11/16 22:00 07/12/16 10:38 Lotrimin 1% Cream - TP 1 applic BID [facility] Administration Enoxaparin Sodium 30 mg 07/11/16 22:00 07/12/16 13:32 Lovenox - SQ 30 mg BID [facility] Administration Escitalopram Oxalate 20 mg 07/12/16 10:00 07/12/16 10:38 Lexapro - PO 20 mg DAILY [facility] Administration Gabapentin 300 mg 07/11/16 22:00 07/12/16 13:32 Neurontin - PO 300 mg TID [facility] Administration Sodium Chloride 1,000 mls @ 100 mls/hr 07/11/16 16:00 07/12/16 03:40 Normal Saline - IV 100 mls/hr ASDIR [facility] Administration Acyclovir 320 mg/ Dextrose 106.4 mls @ 100 mls/hr 07/12/16 11:00 07/12/16 11:43 IVPB 100 mls/hr Q8H-IV [facility] Administration Lactobacillus Acidophilus 1 tab 07/12/16 10:30 07/12/16 10:37 Bacid - PO 1 tab DAILY [facility] Administration Levothyroxine Sodium 75 mcg 07/12/16 07:00 07/12/16 06:01 Synthroid - PO 75 mcg DAILY@0700 [facility] Administration Pantoprazole Sodium 20 mg 07/12/16 10:00 07/12/16 10:37 Protonix - PO 20 mg DAILY [facility] Administration Prednisolone Acetate 2 drop 07/12/16 14:00 07/12/16 13:31 Pred Mild 0.12% - OS 2 drop QID [facility] Administration Prednisone 10 mg 07/12/16 10:00 07/12/16 10:37 Deltasone - PO 10 mg DAILY [facility] Administration Tramadol HCl 50 mg 07/11/16 16:03 07/12/16 05:45 Ultram - PO 50 mg Q8H PRN Administration PAIN ASSESSMENT/PLAN: This is an 89 yo F with PMH of diverticulitis s/p colostoly 3 yrs ago, sciatica , polymyalgia rheumatica, paroxysmal a fib, hx gib, hx hepatic abscess 2011 and hypothyroidism, who presents due to h/a and fall. Severe dehydration -secondary to poor oral intake in setting of facial zoster infection -improving -IVF NS@100 -oral hydration -monitor labs Acute Herpes zoster infection -in setting of recent prednisone use and old age -involving tip of nose, sign of dissemination L eye more injected, no change in vision, DW with optho, tip of nose was involved yesterday, eye is expected to become more injected at first before improving. retina not involved. -IV Acyclovir 320 tid renal dosing -prednisolone eye drops L eye -cleocin ppx UTI -likely not the cause of weakness (due to dehydration) -cleocin will cover prophylactically JASS -creat 0.6 at baseline -IV hydration -hold cozaar -trend creat Demand ischemia -asymptomatic, EKG no ACS -trop 0.19 then 0.16, no need to continue trending. -due to denydration -ivf Skin abrasions: -bacitracin tp polymyalgia rheumatica -continue pred 10 d, neurontin, tramadol Hypothyroidism -synthroid, ppi HTN -now normotensive -norvasc with hold parameters FEN NS@100 lytes stable -na restricted diet Linnea, ppi Dispo: med [place]ienna Problem List - Problems (1) Abnormal bruising Code(s): R23.8 - OTHER SKIN CHANGES (2) Elevated troponin level Code(s): R74.8 - ABNORMAL LEVELS OF OTHER SERUM ENZYMES (3) Generalized weakness Code(s): R53.1 - WEAKNESS (4) Hypothyroid Code(s): E03.9 - HYPOTHYROIDISM, UNSPECIFIED Qualifiers: Hypothyroidism type: acquired Qualified Code(s): E03.9 - Hypothyroidism, unspecified (5) Polymyalgia rheumatica Code(s): M35.3 - POLYMYALGIA RHEUMATICA (6) Shingles outbreak Code(s): B02.9 - ZOSTER WITHOUT COMPLICATIONS Qualifiers: 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 - New Patient This patient is new to me today: No - Critical Care Critical Care patient: No - Discharge Referral Referred to [facility] Med P.C[facility] No
[2016-07-12] MEDS ORDERED: PT OWN MED DRAWER 7, Y5N ONE ×2 (17:45→21:37)
[2016-07-12] MEDS: cefTRIAXone 1 GM/50 ML BAG (PRE-DOCKED) IVPB SCH (18:06)
[2016-07-12] MEDS: NAPH,MB-DB/K PH,MBDB POWDER PACKET PO SCH ×2 (21:42→23:19)
[2016-07-13] MEDS: CLINDAMYCIN HCL 150 MG CAPSULE (FP) PO SCH ×5 (00:06→23:55)
[2016-07-13] MEDS ORDERED: PT OWN MED DRAWER 7, Y5N ONE ×3 (01:31→10:30)
[2016-07-13] MEDS: DEXTROSE 5% IVPB SCH ×3 (01:36→18:02)
[2016-07-13] MEDS: WATER IVPB SCH ×3 (01:36→18:02)
[2016-07-13] MEDS: ACYCLOVIR IVPB SCH ×3 (01:36→18:02)
[2016-07-13] MEDS: GABAPENTIN 300 MG CAPSULE (FP) PO SCH ×3 (06:32→21:58)
[2016-07-13] MEDS: LEVOTHYROXINE NA 75 MCG TABLET (FP) PO SCH (06:32)
[2016-07-13 08:16] LABS: MCHC 33.4 g/dl (32.0-36.0); MEAN CELL VOLUME 92.9 fl (80-96); MEAN PLT VOLUME 7.5 fl (7.5-11.1); PLATELET COUNT 126 K/MM3 (134-434); RDW 16.7 % (11.6-15.6); WHITE BLOOD COUNT 6.6 K/mm3 (4.0-10.0)
[2016-07-13 08:50] LABS: CALCIUM 8.3 mg/dL (8.5-10.1); COCKROFT - GAULT 79.05; CREATININE 0.5 mg/dL (0.55-1.02); MAGNESIUM 1.8 mg/dL (1.8-2.4); PHOSPHOROUS 1.5 mg/dL (2.5-4.9)
[2016-07-13] MEDS ORDERED: ESCITALOPRAM OXALATE 10 MG TABLET (FP) ONE (10:29)
[2016-07-13] MEDS: prednisoLONE ACETATE 0.12% OPTH SUSP- 5 ML BOTTLE OS SCH ×4 (10:35→21:58)
[2016-07-13] MEDS: CLOTRIMAZOLE 1% CREAM 15 GM TUBE TP SCH ×2 (10:37→21:56)
[2016-07-13] MEDS: amLODIPine BESYLATE 5 MG TABLET (FP) PO SCH (10:38)
[2016-07-13] MEDS: ESCITALOPRAM OXALATE 20 MG TABLET (FP) PO SCH (10:38)
[2016-07-13] MEDS: PANTOPRAZOLE 20 MG TABLET (FP) PO SCH (10:38)
[2016-07-13] MEDS: LACTOBACILLUS ACIDOPHILUS 1 EACH TAB (FP) PO SCH (10:38)
[2016-07-13] MEDS: ENOXAPARIN NA (PORCINE) 30 MG/0.3 ML DISP.SYRIN SQ SCH (10:39)
[2016-07-13] MEDS: NAPH,MB-DB/K PH,MBDB POWDER PACKET PO SCH ×2 (10:39→22:03)
[2016-07-13] MEDS: predniSONE 10 MG TABLET (UD) PO SCH (10:39)
[2016-07-13] MEDS: cefTRIAXone 1 GM/50 ML BAG (PRE-DOCKED) IVPB SCH (10:46)
[2016-07-13] MEDS: BACITRACIN 30 GM TUBE TOPICAL OINTMENT TP SCH (12:08)
[2016-07-13] MEDS: SODIUM CHLORIDE 1,000 ML IV SCH ×2 (12:10→14:19)
--- NOTE | 2016-07-13 12:33 | PN ---
Progress Note, Physician History of Present Illness: patient feeling much better vesicles around the left eye clearing up no other complains except pain at the injured site and some muscle ache - Current Medication List Current Medications: Active Medications Acetaminophen (Tylenol -) 650 mg PO Q8H PRN PRN Reason: FEVER OR PAIN Amlodipine Besylate (Norvasc -) 5 mg PO DAILY [facility] Last Admin: 07/13/16 10:38 Dose: 5 mg Bacitracin (Bacitracin -) 1 applic TP DAILY [facility] Last Admin: 07/13/16 12:08 Dose: 1 applic Clindamycin HCl (Cleocin -) 300 mg PO Q6HPO [facility] Last Admin: 07/13/16 12:09 Dose: 300 mg Clotrimazole (Lotrimin 1% Cream -) 1 applic TP BID [facility] Last Admin: 07/13/16 10:37 Dose: 1 applic Enoxaparin Sodium (Lovenox -) 30 mg SQ BID [facility] Last Admin: 07/13/16 10:39 Dose: Not Given Escitalopram Oxalate (Lexapro -) 20 mg PO DAILY [facility] Last Admin: 07/13/16 10:38 Dose: 20 mg Gabapentin (Neurontin -) 300 mg PO TID [facility] Last Admin: 07/13/16 06:32 Dose: 300 mg Sodium Chloride (Normal Saline -) 1,000 mls @ 100 mls/hr IV ASDIR [facility] Last Admin: 07/13/16 12:10 Dose: 100 mls/hr Acyclovir 320 mg/ Dextrose 106.4 mls @ 100 mls/hr IVPB Q8H-IV [facility] Last Admin: 07/13/16 10:33 Dose: 100 mls/hr Lactobacillus Acidophilus (Bacid -) 1 tab PO DAILY [facility] Last Admin: 07/13/16 10:38 Dose: 1 tab Levothyroxine Sodium (Synthroid -) 75 mcg PO DAILY@0700 [facility] Last Admin: 07/13/16 06:32 Dose: 75 mcg Pantoprazole Sodium (Protonix -) 20 mg PO DAILY [facility] Last Admin: 07/13/16 10:38 Dose: 20 mg Potassium Phos/Sodium Phos (Phos-Nak Packet -) 1 packet PO BID [facility] Last Admin: 07/13/16 10:39 Dose: Not Given Prednisolone Acetate (Pred Mild 0.12% -) 2 drop OS QID [facility] Last Admin: 07/13/16 10:35 Dose: 2 drop Prednisone (Deltasone -) 10 mg PO DAILY [facility] Last Admin: 07/13/16 10:39 Dose: 10 mg Tramadol HCl (Ultram -) 50 mg PO Q8H PRN PRN Reason: PAIN Last Admin: 07/12/16 05:45 Dose: 50 mg - Objective Vital Signs: Vital Signs Temperature 98.7 F 07/13/16 09:08 Pulse Rate 64 07/13/16 09:08 Respiratory Rate 20 07/13/16 09:08 Blood Pressure 138/66 07/13/16 09:08 O2 Sat by Pulse Oximetry (%) 97 07/12/16 21:00 Constitutional: Yes: No Distress, Calm, Thin Cardiovascular: Yes: Regular Rate and Rhythm Respiratory: Yes: Regular, CTA Bilaterally Gastrointestinal: Yes: Normal Bowel Sounds, Soft Musculoskeletal: Yes: WNL Extremities: Yes: WNL Integumentary: Yes: Rash (clearing up) Wound/Incision: Yes: Clean/Dry, Dressing Dry and Intact Neurological: Yes: Alert, Oriented Psychiatric: Yes: Alert, Oriented Labs: CBC, BMP 07/13/16 07:00 07/13/16 07:00 INR, PTT INR 0.97 (0.82-1.09) 07/11/16 10:02 Assessment/Plan Problem List - Problem (1) Abnormal bruising Code(s): R23.8 - OTHER SKIN CHANGES (2) Elevated troponin level Code(s): R74.8 - ABNORMAL LEVELS OF OTHER SERUM ENZYMES (3) Generalized weakness Code(s): R53.1 - WEAKNESS (4) Hypothyroid Code(s): E03.9 - HYPOTHYROIDISM, UNSPECIFIED Qualifiers: Hypothyroidism type: acquired Qualified Code(s): E03.9 - Hypothyroidism , unspecified (5) Polymyalgia rheumatica Code(s): M35.3 - POLYMYALGIA RHEUMATICA (6) Shingles outbreak Code(s): B02.9 - ZOSTER WITHOUT COMPLICATIONS Qualifiers: Herpes zoster complications: with ocular involvement Herpes zoster ocular complication detail: unspecified herpes zoster eye disease Qualified Code(s): B02.30 - Zoster ocular disease, unspecified (7) Diastolic CHF Code(s): I50.30 - UNSPECIFIED DIASTOLIC (CONGESTIVE) HEART FAILURE (8) PAF (paroxysmal atrial fibrillation) Code(s): I48.0 - PAROXYSMAL ATRIAL FIBRILLATION (9) Dehydration Code(s): E86.0 - DEHYDRATION 10 uti plan continue current mgmt acylovir iv patient has uti--spoke in detail with the patient she agreed for abx will start patient on ertapenam
--- NOTE | 2016-07-13 12:37 | PN ---
Physical Exam: SUBJECTIVE: Patient seen and examined Patient resting in bed, nad. afebrile and hemodynamically stable. aaox3. refused lovenox, rocephin and phos last night. Still has diffuse body ache but L sided facial and scalp pain are improved, states her L eye and facial rash are improved, denies h/a, change in vision, f/c, n/v, confusion, palpitations, chest pain, sob, difficulty swallowing, abd pain, diarrhea, dysuria. OBJECTIVE: Vital Signs Period Temp Pulse Resp BP Sys/Arriaza Pulse Ox Last 24 Hr 98.2 F-98.7 F 61-65 20-20 138-173/59-73 97 GENERAL: Awake, alert, and fully oriented, in mild distress. HEAD: improved L sided erythema, crusted small vesicles by hairline, involving nose EYES: Pupils equal, round and reactive to light, extraocular movements intact, L sclera less injected. no ptosis, no change in vision EARS, NOSE, THROAT: Dry mucous membranes. NECK: supple without lymphadenopathy, JVD, or masses. LUNGS: mild bibasilar crackles HEART: Regular rate and rhythm, normal S1 and S2 grade 3 systolic murmur at r sternal boarder ABDOMEN: Soft, nontender, not distended, normoactive bowel sounds, no guarding, no rebound, no masses. No hepatomegaly or splenomegaly. LLQ colostoly MUSCULOSKELETAL: No CVA tenderness. diffuse muscle and joint tenderness UPPER EXTREMITIES: No peripheral edema. LOWER EXTREMITIES: 1+ pulses, warm, well-perfused. No peripheral edema. bruised skin on anterior thighs, b/l knee abrasions NEUROLOGICAL: Cranial nerves II-XII intact. Normal speech. 5/5 ur strength b/ l. 5/5 plantarflexion, 4+/5 dorsiflexion, 4+/5 thigh flexion, 1+ patellar reflexes b/l PSYCHIATRIC: Cooperative. Good eye contact. Appropriate mood and affect. SKIN: lesions as above Laboratory Results - last 24 hr 07/13/16 07/13/16 07:00 07:00 WBC 6.6 RBC 4.26 Hgb 13.2 Hct 39.6 MCV 92.9 MCHC 33.4 RDW 16.7 H Plt Count 126 L MPV 7.5 Sodium 146 H Potassium 3.6 Chloride 109 H Carbon Dioxide 29 Anion Gap 8 BUN 12 D Creatinine 0.5 L Random Glucose 76 Calcium 8.3 L Phosphorus 1.5 L Magnesium 1.8 Active Medications Generic Name Dose Route Start Last Admin Trade Name Freyvon PRN Reason Stop Dose Admin Acetaminophen 650 mg 07/11/16 16:03 Tylenol - PO Q8H PRN FEVER OR PAIN Amlodipine Besylate 5 mg 07/12/16 10:00 07/13/16 10:38 Norvasc - PO 5 mg DAILY [facility] Administration Bacitracin 1 applic 07/12/16 10:00 07/13/16 12:08 Bacitracin - TP 1 applic DAILY [facility] Administration Clindamycin HCl 300 mg 07/11/16 18:00 07/13/16 12:09 Cleocin - PO 300 mg Q6HPO [facility] Administration Clotrimazole 1 applic 07/11/16 22:00 07/13/16 10:37 Lotrimin 1% Cream - TP 1 applic BID [facility] Administration Enoxaparin Sodium 30 mg 07/11/16 22:00 07/13/16 10:39 Lovenox - SQ Not Given BID [facility] Escitalopram Oxalate 20 mg 07/12/16 10:00 07/13/16 10:38 Lexapro - PO 20 mg DAILY [facility] Administration Gabapentin 300 mg 07/11/16 22:00 07/13/16 06:32 Neurontin - PO 300 mg TID [facility] Administration Sodium Chloride 1,000 mls @ 100 mls/hr 07/11/16 16:00 07/13/16 12:10 Normal Saline - IV 100 mls/hr ASDIR [facility] Administration Acyclovir 320 mg/ Dextrose 106.4 mls @ 100 mls/hr 07/12/16 11:00 07/13/16 10:33 IVPB 100 mls/hr Q8H-IV [facility] Administration Ertapenem 1 gm/ Sodium 50 mls @ 50 mls/hr 07/13/16 12:45 Chloride IVPB DAILY [facility] Protocol Lactobacillus Acidophilus 1 tab 07/12/16 10:30 07/13/16 10:38 Bacid - PO 1 tab DAILY [facility] Administration Levothyroxine Sodium 75 mcg 07/12/16 07:00 07/13/16 06:32 Synthroid - PO 75 mcg DAILY@0700 [facility] Administration Pantoprazole Sodium 20 mg 07/12/16 10:00 07/13/16 10:38 Protonix - PO 20 mg DAILY [facility] Administration Potassium Phos/Sodium Phos 1 packet 07/12/16 22:00 07/13/16 10:39 Phos-Nak Packet - PO Not Given BID [facility] Prednisolone Acetate 2 drop 07/12/16 14:00 07/13/16 10:35 Pred Mild 0.12% - OS 2 drop QID [facility] Administration Prednisone 10 mg 07/12/16 10:00 07/13/16 10:39 Deltasone - PO 10 mg DAILY [facility] Administration Tramadol HCl 50 mg 07/11/16 16:03 07/12/16 05:45 Ultram - PO 50 mg Q8H PRN Administration PAIN ASSESSMENT/PLAN: This is an 89 yo F with PMH of diverticulitis s/p colostoly 3 yrs ago, sciatica , polymyalgia rheumatica, paroxysmal a fib, hx gib, hx hepatic abscess 2011 and hypothyroidism, who presents due to h/a and fall. Severe volume depletion -secondary to poor oral intake in setting of facial zoster infection -improving -IVF NS@75 -oral hydration -monitor labs Acute Herpes zoster infection -in setting of recent prednisone use and old age -improving;L eye less injected, no change in vision, rash less pronounced -IV Acyclovir 320 tid renal dosing -prednisolone eye drops L eye -cleocin ppx UTI -likely not the cause of weakness (due to dehydration) - cultures nonlactosefermenting GNB; ID added ertapenem JASS -creat 0.6 at baseline -IV hydration -hold cozaar -trend creat Demand ischemia -resolved with IVF Skin abrasions: -bacitracin tp polymyalgia rheumatica -continue pred 10 d, neurontin, tramadol Hypothyroidism -synthroid, ppi HTN -now normotensive -norvasc with hold parameters FEN NS@75 lytes stable na restricted diet Linnea, ppi Dispo: med [place] Problem List - Problems (1) Abnormal bruising Code(s): R23.8 - OTHER SKIN CHANGES (2) Elevated troponin level Code(s): R74.8 - ABNORMAL LEVELS OF OTHER SERUM ENZYMES (3) Generalized weakness Code(s): R53.1 - WEAKNESS (4) Hypothyroid Code(s): E03.9 - HYPOTHYROIDISM, UNSPECIFIED Qualifiers: Hypothyroidism type: acquired Qualified Code(s): E03.9 - Hypothyroidism, unspecified (5) Polymyalgia rheumatica Code(s): M35.3 - POLYMYALGIA RHEUMATICA (6) Shingles outbreak Code(s): B02.9 - ZOSTER WITHOUT COMPLICATIONS Qualifiers: 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 - New Patient This patient is new to me today: No - Critical Care Critical Care patient: No
[2016-07-13] MEDS: ERTAPENEM SODIUM 1 GM in SODIUM CHLORIDE 50 ML IVPB SCH (14:19)
--- NOTE | 2016-07-13 14:32 | PN ---
Teaching Attending Note Name of Resident: Lucina Brown ATTENDING PHYSICIAN STATEMENT I saw and evaluated the patient. I reviewed the resident's note and discussed the case with the resident. I agree with the resident's findings and plan as documented. SUBJECTIVE: no fever or chills. feels better , no abd pain, but pain when she pushes over bladder . no BM in 2 days but does not want laxatives denies MALDONADO or visual changes OBJECTIVE: NAD, Awake, alert and oriented. pleasant and cooperative HEENT: MMM, skin around L orbit, and yazidism and scalp with erythema and tenderness to palpation ( improved ) , with small vesicles on yazidism near hair line . no involvement of ear or external ear canal .rash reaches tip of nose and mid line on forehead but does not cross mid line .eyes with round equal pupils , and improved congestion of conjunctiva in L eye . nl EOMI. CV: RRR, 2/6 SM at RUSB. no JVD Lungs: CTAB Ext : no edema . has bruising b/l anterior thighs. abrasions on knees with bacitracin ointment on . DP 2+ R, 1+ L Abd : soft, NT, nl BS , old scar on mid abd and L colostomy bag . 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 She was found to have Herpes zoster, JASS, and mild rhabdo 1- Disseminated herpes zoster: skin lesionsn and eye conjunctivitis are better now . No MALDONADO - Cont IV acyclovir - steroids drops to the L eye - pain mgt - prophylactic Abx 2- JASS : Cr improved. cont iVF especially with IV acyclovir cont to hold ARB norvasc in mean time for HTN 3- Complicated UTI: pt refused CTX and unasyn. was convinced to take ertapenem by ID . U cx growing non lactose fermenting . await ID , if pseudomonas, will need to change Abx 5- H/o P A fib, off AC due to GI bleed no need for BB at this point 6- PMR: cont steroids at home dose HLOC
[2016-07-13] MEDS: traMADol HCL 50 MG TABLET PO PRN (20:24)
[2016-07-14] MEDS ORDERED: PT OWN MED DRAWER 7, Y5N ONE ×3 (01:30→21:46)
[2016-07-14] MEDS: ACYCLOVIR IVPB SCH ×3 (01:52→17:45)
[2016-07-14] MEDS: DEXTROSE 5% IVPB SCH ×3 (01:52→17:45)
[2016-07-14] MEDS: WATER IVPB SCH ×3 (01:52→17:45)
[2016-07-14] MEDS: LEVOTHYROXINE NA 75 MCG TABLET (FP) PO SCH (06:26)
[2016-07-14] MEDS: GABAPENTIN 300 MG CAPSULE (FP) PO SCH ×3 (06:26→21:49)
[2016-07-14] MEDS: CLINDAMYCIN HCL 150 MG CAPSULE (FP) PO SCH ×4 (06:26→23:59)
[2016-07-14 08:55] LABS: MCHC 33.5 g/dl (32.0-36.0); MEAN CELL VOLUME 92.5 fl (80-96); MEAN PLT VOLUME 7.4 fl (7.5-11.1); PLATELET COUNT 129 K/MM3 (134-434); RDW 16.6 % (11.6-15.6); WHITE BLOOD COUNT 5.6 K/mm3 (4.0-10.0)
[2016-07-14 09:15] LABS: CALCIUM 8.3 mg/dL (8.5-10.1); COCKROFT - GAULT 79.05; CREATININE 0.5 mg/dL (0.55-1.02); MAGNESIUM 1.9 mg/dL (1.8-2.4); PHOSPHOROUS 1.6 mg/dL (2.5-4.9)
[2016-07-14] MEDS ORDERED: ESCITALOPRAM OXALATE 10 MG TABLET (FP) ONE (09:27)
[2016-07-14] MEDS: predniSONE 10 MG TABLET (UD) PO SCH (09:33)
[2016-07-14] MEDS: LACTOBACILLUS ACIDOPHILUS 1 EACH TAB (FP) PO SCH (09:33)
[2016-07-14] MEDS: ESCITALOPRAM OXALATE 20 MG TABLET (FP) PO SCH (09:34)
[2016-07-14] MEDS: ENOXAPARIN NA (PORCINE) 40 MG/0.4 ML DISP.SYRIN SQ SCH (09:34)
[2016-07-14] MEDS: PANTOPRAZOLE 20 MG TABLET (FP) PO SCH (09:34)
[2016-07-14] MEDS: ERTAPENEM SODIUM 1 GM in SODIUM CHLORIDE 50 ML IVPB SCH (09:36)
[2016-07-14] MEDS: NAPH,MB-DB/K PH,MBDB POWDER PACKET PO SCH ×2 (09:36→21:51)
[2016-07-14] MEDS: amLODIPine BESYLATE 5 MG TABLET (FP) PO SCH (09:36)
[2016-07-14] MEDS: prednisoLONE ACETATE 0.12% OPTH SUSP- 5 ML BOTTLE OS SCH ×4 (09:38→21:50)
[2016-07-14] MEDS: CLOTRIMAZOLE 1% CREAM 15 GM TUBE TP SCH ×2 (09:38→21:50)
[2016-07-14] MEDS: BACITRACIN 30 GM TUBE TOPICAL OINTMENT TP SCH (11:22)
[2016-07-14] MEDS: SODIUM CHLORIDE 1,000 ML IV SCH (13:57)
--- NOTE | 2016-07-14 14:03 | PN ---
Progress Note, Physician History of Present Illness: patient doing much better no issues rash is clearing up nicely patient feeling much better worked with physio - Current Medication List Current Medications: Active Medications Acetaminophen (Tylenol -) 650 mg PO Q8H PRN PRN Reason: FEVER OR PAIN Amlodipine Besylate (Norvasc -) 5 mg PO DAILY [facility] Last Admin: 07/14/16 09:36 Dose: 5 mg Bacitracin (Bacitracin -) 1 applic TP DAILY [facility] Last Admin: 07/14/16 11:22 Dose: 1 applic Clindamycin HCl (Cleocin -) 300 mg PO Q6HPO [facility] Last Admin: 07/14/16 11:18 Dose: 300 mg Clotrimazole (Lotrimin 1% Cream -) 1 applic TP BID [facility] Last Admin: 07/14/16 09:38 Dose: 1 applic Enoxaparin Sodium (Lovenox -) 40 mg SQ DAILY [facility] Last Admin: 07/14/16 09:34 Dose: 40 mg Escitalopram Oxalate (Lexapro -) 20 mg PO DAILY [facility] Last Admin: 07/14/16 09:34 Dose: 20 mg Gabapentin (Neurontin -) 300 mg PO TID [facility] Last Admin: 07/14/16 13:57 Dose: 300 mg Acyclovir 320 mg/ Dextrose 106.4 mls @ 100 mls/hr IVPB Q8H-IV [facility] Last Admin: 07/14/16 09:35 Dose: 100 mls/hr Ertapenem 1 gm/ Sodium (Chloride) 50 mls @ 100 mls/hr IVPB DAILY [facility] PRN Reason: Protocol Last Admin: 07/14/16 09:36 Dose: 100 mls/hr Sodium Chloride (Normal Saline -) 1,000 mls @ 75 mls/hr IV ASDIR [facility] Last Admin: 07/14/16 13:57 Dose: Not Given Lactobacillus Acidophilus (Bacid -) 1 tab PO DAILY [facility] Last Admin: 07/14/16 09:33 Dose: 1 tab Levothyroxine Sodium (Synthroid -) 75 mcg PO DAILY@0700 [facility] Last Admin: 07/14/16 06:26 Dose: 75 mcg Pantoprazole Sodium (Protonix -) 20 mg PO DAILY [facility] Last Admin: 07/14/16 09:34 Dose: 20 mg Potassium Phos/Sodium Phos (Phos-Nak Packet -) 1 packet PO BID [facility] Last Admin: 07/14/16 09:36 Dose: 1 packet Prednisolone Acetate (Pred Mild 0.12% -) 2 drop OS QID [facility] Last Admin: 07/14/16 13:58 Dose: 2 drop Prednisone (Deltasone -) 10 mg PO DAILY [facility] Last Admin: 07/14/16 09:33 Dose: 10 mg Tramadol HCl (Ultram -) 50 mg PO Q8H PRN PRN Reason: PAIN Last Admin: 07/13/16 20:24 Dose: 50 mg - Objective Vital Signs: Vital Signs Temperature 98.0 F 07/14/16 08:00 Pulse Rate 60 07/14/16 08:00 Respiratory Rate 20 07/14/16 08:00 Blood Pressure 155/70 07/14/16 08:00 O2 Sat by Pulse Oximetry (%) 96 07/14/16 09:00 Constitutional: Yes: No Distress, Calm Cardiovascular: Yes: Regular Rate and Rhythm Respiratory: Yes: Regular, CTA Bilaterally Gastrointestinal: Yes: Normal Bowel Sounds, Soft Musculoskeletal: Yes: WNL Extremities: Yes: WNL Integumentary: Yes: Rash (clearing up) Neurological: Yes: Alert, Oriented Psychiatric: Yes: Alert, Oriented Labs: CBC, BMP 07/14/16 07:30 07/14/16 07:30 INR, PTT INR 0.97 (0.82-1.09) 07/11/16 10:02 Assessment/Plan Problem List - Problem (1) Abnormal bruising Code(s): R23.8 - OTHER SKIN CHANGES (2) Elevated troponin level Code(s): R74.8 - ABNORMAL LEVELS OF OTHER SERUM ENZYMES (3) Generalized weakness Code(s): R53.1 - WEAKNESS (4) Hypothyroid Code(s): E03.9 - HYPOTHYROIDISM, UNSPECIFIED Qualifiers: Hypothyroidism type: acquired Qualified Code(s): E03.9 - Hypothyroidism , unspecified (5) Polymyalgia rheumatica Code(s): M35.3 - POLYMYALGIA RHEUMATICA (6) Shingles outbreak Code(s): B02.9 - ZOSTER WITHOUT COMPLICATIONS Qualifiers: Herpes zoster complications: with ocular involvement Herpes zoster ocular complication detail: unspecified herpes zoster eye disease Qualified Code(s): 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
[2016-07-14] MEDS ORDERED: POTASSIUM PHOSPHATE 15 MM in SODIUM CHLORIDE 250 ML IVPB ONE (16:05)
--- NOTE | 2016-07-14 16:15 | PN ---
Progress Note (short form) - Note Progress Note: Subjective: no fever or hills, no abd pain , no pain in eye . no MALDONADO , or visual changes Objective: Vital Signs: Last Vital Signs Temp Pulse Resp BP Pulse Ox 98.1 F 60 20 144/88 96 07/14/16 15:28 07/14/16 15:28 07/14/16 08:00 07/14/16 15:28 07/14/16 09:00 Laboratory Results - last 24 hr 07/14/16 07/14/16 07:30 07:30 WBC 5.6 RBC 4.20 Hgb 13.0 Hct 38.9 MCV 92.5 MCHC 33.5 RDW 16.6 H Plt Count 129 L MPV 7.4 L Sodium 144 Potassium 3.8 Chloride 108 H Carbon Dioxide 30 Anion Gap 6 L BUN 10 Creatinine 0.5 L Random Glucose 77 Calcium 8.3 L Phosphorus 1.6 L Magnesium 1.9 Physical Exam: NAD, Awake, alert and oriented. pleasant and cooperative HEENT: MMM, skin around L orbit, and sabianist and scalp with erythema and tenderness to palpation ( improved ) , with small vesicles started to dry up . no involvement of ear or external ear canal .rash reaches tip of nose and mid line on forehead but does not cross mid line .eyes with round equal pupils , and much improved congestion of conjunctiva in L eye . nl EOMI. CV: RRR, 2/6 SM at RUSB. no JVD Lungs: CTAB Ext : no edema . has bruising b/l anterior thighs. abrasions on knees with bacitracin ointment on . DP 2+ R, 1+ L Abd : soft, suprapubic tenderness , nl BS , old scar on mid abd and L colostomy bag . 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 She was found to have Herpes zoster, JASS, and mild rhabdo 1- Disseminated herpes zoster: skin lesionsn and eye conjunctivitis are better now. No MALDONADO - Cont IV acyclovir - steroids drops to the L eye - pain mgt - prophylactic Abx . will stop clinda tomrrow 2- JASS : Cr improved. cont IVF with IV acyclovir . cont to hold ARB norvasc in mean time for HTN 3- Complicated UTI: with ESBL. cont ertapenem day 04/30 5- H/o P A fib, off AC due to GI bleed no need for BB at this point 6- PMR: cont steroids at home dose HLOC Visit type - Emergency Visit Emergency Visit: Yes ED Registration Date: 07/11/16 Care time: The patient presented to the Emergency Department on the above date and was hospitalized for further evaluation of their emergent condition. - New Patient This patient is new to me today: No - Critical Care Critical Care patient: No
[2016-07-15] MEDS ORDERED: PT OWN MED DRAWER 7, Y5N ONE ×2 (01:41→18:03)
[2016-07-15] MEDS: DEXTROSE 5% IVPB SCH ×3 (01:45→18:26)
[2016-07-15] MEDS: WATER IVPB SCH ×3 (01:45→18:26)
[2016-07-15] MEDS: ACYCLOVIR IVPB SCH ×3 (01:45→18:26)
[2016-07-15] MEDS: LEVOTHYROXINE NA 75 MCG TABLET (FP) PO SCH (06:21)
[2016-07-15] MEDS: CLINDAMYCIN HCL 150 MG CAPSULE (FP) PO SCH ×2 (06:21→12:19)
[2016-07-15] MEDS: GABAPENTIN 300 MG CAPSULE (FP) PO SCH ×3 (06:21→22:16)
[2016-07-15] MEDS: SODIUM CHLORIDE 1,000 ML IV SCH ×3 (06:22→22:15)
[2016-07-15 09:02] LABS: PHOSPHOROUS 2.6 mg/dL (2.5-4.9)
[2016-07-15] MEDS ORDERED: ESCITALOPRAM OXALATE 10 MG TABLET (FP) ONE (10:18)
[2016-07-15] MEDS: prednisoLONE ACETATE 0.12% OPTH SUSP- 5 ML BOTTLE OS SCH ×4 (10:25→22:16)
[2016-07-15] MEDS: CLOTRIMAZOLE 1% CREAM 15 GM TUBE TP SCH ×2 (10:25→22:17)
[2016-07-15] MEDS: BACITRACIN 30 GM TUBE TOPICAL OINTMENT TP SCH (10:26)
[2016-07-15] MEDS: PANTOPRAZOLE 20 MG TABLET (FP) PO SCH (10:28)
[2016-07-15] MEDS: predniSONE 10 MG TABLET (UD) PO SCH (10:28)
[2016-07-15] MEDS: ESCITALOPRAM OXALATE 20 MG TABLET (FP) PO SCH (10:28)
[2016-07-15] MEDS: amLODIPine BESYLATE 5 MG TABLET (FP) PO SCH (10:28)
[2016-07-15] MEDS: LACTOBACILLUS ACIDOPHILUS 1 EACH TAB (FP) PO SCH (10:28)
[2016-07-15] MEDS: ERTAPENEM SODIUM 1 GM in SODIUM CHLORIDE 50 ML IVPB SCH (10:29)
[2016-07-15] MEDS: NAPH,MB-DB/K PH,MBDB POWDER PACKET PO SCH (10:30)
[2016-07-15] MEDS: ENOXAPARIN NA (PORCINE) 40 MG/0.4 ML DISP.SYRIN SQ SCH (10:30)
[2016-07-15] MEDS ORDERED: PICC LINE 8 ML FLUSH PROTOCOL IVPUSH PRN (11:20)
--- NOTE | 2016-07-15 15:23 | PN ---
Teaching Attending Note Name of Resident: Lucina Brown ATTENDING PHYSICIAN STATEMENT I saw and evaluated the patient. I reviewed the resident's note and discussed the case with the resident. I agree with the resident's findings and plan as documented. SUBJECTIVE: no fever or chills. no abd pain . no MALDONADO , no visual changes OBJECTIVE: NAD, Awake, pleasant and cooperative HEENT: MMM, improved rash n L face and religious . crusted herpes lesions . improved congestion of conjunctiva CV: RRR, 2/6 SM at RUSB. no JVD Lungs: CTAB Ext : trace edema on LE . has bruising b/l anterior thighs which turned greenish , abrasions on knees with bacitracin ointment on . Abd : soft, suprapubic tenderness , nl BS , old scar on mid abd and L colostomy bag . 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 She was found to have Herpes zoster, JASS, and mild rhabdo 1- Disseminated herpes zoster: skin lesions and eye conjunctivitis are better now. No MALDONADO - Cont IV acyclovir day 5 . appreciate ID Recs on duration - steroids drops to the L eye - stop prophylactic clinda 2- JASS:resolved . cont but decrease IVF with IV acyclovir . cont to hold ARB norvasc in mean time for HTN 3- Complicated UTI: with ESBL. cont ertapenem day 3/7 4- H/o P A fib, off AC due to GI bleed rate controlled . 5- PMR: cont steroids at home dose PICC line for rehab placement
[2016-07-15] MEDS ORDERED: POTASSIUM CHLORIDE TABS 20 MEQ TABLET.ER (FP) PO ONE (15:25)
--- NOTE | 2016-07-15 15:33 | PN ---
Physical Exam: SUBJECTIVE: Patient seen and examined Patient resting in bed, nad. afebrile and hemodynamically stable. aaox3. feels better. body ache improved, rash improved, facial pain resolved. no h/a. no change in vision. denies f/c, n/v, confusion, palpitations, chest pain, sob, difficulty swallowing, abd pain, diarrhea, dysuria. OBJECTIVE: Vital Signs Period Temp Pulse Resp BP Sys/Arriaza Pulse Ox Last 24 Hr 97.6 F-98.3 F 54-70 18-20 146-157/74-89 97 GENERAL: Awake, alert, and fully oriented, in mild distress. HEAD: improved L sided erythema, crusted small vesicles by hairline EYES: Pupils equal, round and reactive to light, extraocular movements intact, L sclera mildly injected. no ptosis, no change in vision EARS, NOSE, THROAT: Dry mucous membranes. NECK: supple without lymphadenopathy, JVD, or masses. LUNGS: mild bibasilar crackles HEART: Regular rate and rhythm, normal S1 and S2 grade 3 systolic murmur at r sternal boarder ABDOMEN: Soft, nontender, not distended, normoactive bowel sounds, no guarding, no rebound, no masses. No hepatomegaly or splenomegaly. LLQ colostoly MUSCULOSKELETAL: No CVA tenderness. diffuse muscle and joint tenderness UPPER EXTREMITIES: No peripheral edema. LOWER EXTREMITIES: 1+ pulses, warm, well-perfused. No peripheral edema. bruised skin on anterior thighs, b/l knee abrasions NEUROLOGICAL: Cranial nerves II-XII intact. Normal speech. 5/5 ur strength b/ l. 5/5 plantarflexion, 4+/5 dorsiflexion, 4+/5 thigh flexion, 1+ patellar reflexes b/l PSYCHIATRIC: Cooperative. Good eye contact. Appropriate mood and affect. SKIN: lesions as above Laboratory Results - last 24 hr 07/15/16 07/15/16 06:15 11:23 Potassium 3.4 L POC Glucometer 205 Phosphorus 2.6 D Magnesium 2.0 Active Medications Generic Name Dose Route Start Last Admin Trade Name Freq PRN Reason Stop Dose Admin Acetaminophen 650 mg 07/11/16 16:03 Tylenol - PO Q8H PRN FEVER OR PAIN Amlodipine Besylate 5 mg 07/12/16 10:00 07/15/16 10:28 Norvasc - PO 5 mg DAILY [facility] Administration Bacitracin 1 applic 07/12/16 10:00 07/15/16 10:26 Bacitracin - TP 1 applic DAILY [facility] Administration Clotrimazole 1 applic 07/11/16 22:00 07/15/16 10:25 Lotrimin 1% Cream - TP 1 applic BID [facility] Administration Enoxaparin Sodium 40 mg 07/14/16 10:00 07/15/16 10:30 Lovenox - SQ 40 mg DAILY [facility] Administration Escitalopram Oxalate 20 mg 07/12/16 10:00 07/15/16 10:28 Lexapro - PO 20 mg DAILY [facility] Administration Gabapentin 300 mg 07/11/16 22:00 07/15/16 14:13 Neurontin - PO 300 mg TID [facility] Administration IV Flush 8 ml 07/15/16 11:20 Picc Line Flush IVPUSH PRN PRN Protocol Acyclovir 320 mg/ Dextrose 106.4 mls @ 100 mls/hr 07/12/16 11:00 07/15/16 11:26 IVPB 100 mls/hr Q8H-IV [facility] Administration Ertapenem 1 gm/ Sodium 50 mls @ 100 mls/hr 07/13/16 12:45 07/15/16 10:29 Chloride IVPB 100 mls/hr DAILY [facility] Administration Protocol Sodium Chloride 1,000 mls @ 50 mls/hr 07/15/16 15:25 Normal Saline - IV ASDIR [facility] Lactobacillus Acidophilus 1 tab 07/12/16 10:30 07/15/16 10:28 Bacid - PO 1 tab DAILY [facility] Administration Levothyroxine Sodium 75 mcg 07/12/16 07:00 07/15/16 06:21 Synthroid - PO 75 mcg DAILY@0700 [facility] Administration Pantoprazole Sodium 20 mg 07/12/16 10:00 07/15/16 10:28 Protonix - PO 20 mg DAILY [facility] Administration Prednisolone Acetate 2 drop 07/12/16 14:00 07/15/16 14:12 Pred Mild 0.12% - OS 2 drop QID [facility] Administration Prednisone 10 mg 07/12/16 10:00 07/15/16 10:28 Deltasone - PO 10 mg DAILY [facility] Administration Tramadol HCl 50 mg 07/11/16 16:03 07/13/16 20:24 Ultram - PO 50 mg Q8H PRN Administration PAIN ASSESSMENT/PLAN: This is an 89 yo F with PMH of diverticulitis s/p colostoly 3 yrs ago, sciatica , polymyalgia rheumatica, paroxysmal a fib, hx gib, hx hepatic abscess 2011 and hypothyroidism, who presents due to h/a and fall. Acute Herpes zoster infection -in setting of recent prednisone use and old age -improving; L eye less injected, no change in vision, rash less pronounced -IV Acyclovir 320 tid renal dosing; NS@50 to avoid JASS. day 4 of 10-14 total -prednisolone eye drops L eye -cleocin stop today UTI -likely not the cause of weakness (due to dehydration) -cultures ESBL, ertapenem day 3 of 7 per ID Severe volume depletion -secondary to poor oral intake in setting of facial zoster infection -resolved JASS -resolved -hold cozaar Skin abrasions: -improving with bacitracin tp polymyalgia rheumatica -continue pred 10 d, neurontin, tramadol Hypothyroidism -synthroid, ppi HTN -norvasc with hold parameters FEN NS@50 lytes stable na restricted diet Linnea, ppi Dispo: med [facility]; plan to place PICC line and d/c to rehab Problem List - Problems (1) Abnormal bruising Code(s): R23.8 - OTHER SKIN CHANGES (2) Elevated troponin level Code(s): R74.8 - ABNORMAL LEVELS OF OTHER SERUM ENZYMES (3) Generalized weakness Code(s): R53.1 - WEAKNESS (4) Hypothyroid Code(s): E03.9 - HYPOTHYROIDISM, UNSPECIFIED Qualifiers: Hypothyroidism type: acquired Qualified Code(s): E03.9 - Hypothyroidism, unspecified (5) Polymyalgia rheumatica Code(s): M35.3 - POLYMYALGIA RHEUMATICA (6) Shingles outbreak Code(s): B02.9 - ZOSTER WITHOUT COMPLICATIONS Qualifiers: 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 - New Patient This patient is new to me today: No - Critical Care Critical Care patient: No - Discharge Referral Referred to [facility] No
[2016-07-15] MEDS ORDERED: KCL 10 MEQ IVPB 100 ML IVPB SCH (16:15)
--- NOTE | 2016-07-15 18:30 | PN ---
Progress Note, Physician History of Present Illness: patient doing much better no issues rash is clearing up still with some vesicles - Current Medication List Current Medications: Active Medications Acetaminophen (Tylenol -) 650 mg PO Q8H PRN PRN Reason: FEVER OR PAIN Amlodipine Besylate (Norvasc -) 5 mg PO DAILY [facility] Last Admin: 07/15/16 10:28 Dose: 5 mg Bacitracin (Bacitracin -) 1 applic TP DAILY [facility] Last Admin: 07/15/16 10:26 Dose: 1 applic Clotrimazole (Lotrimin 1% Cream -) 1 applic TP BID [facility] Last Admin: 07/15/16 10:25 Dose: 1 applic Enoxaparin Sodium (Lovenox -) 40 mg SQ DAILY [facility] Last Admin: 07/15/16 10:30 Dose: 40 mg Escitalopram Oxalate (Lexapro -) 20 mg PO DAILY [facility] Last Admin: 07/15/16 10:28 Dose: 20 mg Gabapentin (Neurontin -) 300 mg PO TID [facility] Last Admin: 07/15/16 14:13 Dose: 300 mg IV Flush (Picc Line Flush) 8 ml IVPUSH PRN PRN PRN Reason: Protocol Acyclovir 320 mg/ Dextrose 106.4 mls @ 100 mls/hr IVPB Q8H-IV [facility] Last Admin: 07/15/16 18:26 Dose: 100 mls/hr Ertapenem 1 gm/ Sodium (Chloride) 50 mls @ 100 mls/hr IVPB DAILY [facility] PRN Reason: Protocol Last Admin: 07/15/16 10:29 Dose: 100 mls/hr Sodium Chloride (Normal Saline -) 1,000 mls @ 50 mls/hr IV ASDIR [facility] Last Admin: 07/15/16 15:41 Dose: 50 mls/hr Lactobacillus Acidophilus (Bacid -) 1 tab PO DAILY [facility] Last Admin: 07/15/16 10:28 Dose: 1 tab Levothyroxine Sodium (Synthroid -) 75 mcg PO DAILY@0700 [facility] Last Admin: 07/15/16 06:21 Dose: 75 mcg Pantoprazole Sodium (Protonix -) 20 mg PO DAILY [facility] Last Admin: 07/15/16 10:28 Dose: 20 mg Prednisolone Acetate (Pred Mild 0.12% -) 2 drop OS QID [facility] Last Admin: 07/15/16 18:27 Dose: 2 drop Prednisone (Deltasone -) 10 mg PO DAILY [facility] Last Admin: 07/15/16 10:28 Dose: 10 mg Tramadol HCl (Ultram -) 50 mg PO Q8H PRN PRN Reason: PAIN Last Admin: 07/13/16 20:24 Dose: 50 mg - Objective Vital Signs: Vital Signs Temperature 98.3 F 07/15/16 14:09 Pulse Rate 70 07/15/16 14:09 Respiratory Rate 20 07/15/16 14:09 Blood Pressure 149/74 07/15/16 14:09 O2 Sat by Pulse Oximetry (%) 97 07/14/16 21:00 Constitutional: Yes: No Distress, Calm Eyes: Yes: Other (rash improving) Cardiovascular: Yes: Regular Rate and Rhythm Respiratory: Yes: Regular, CTA Bilaterally Gastrointestinal: Yes: Normal Bowel Sounds, Soft Musculoskeletal: Yes: WNL Extremities: Yes: WNL Neurological: Yes: Alert, Oriented Psychiatric: Yes: Alert, Oriented Labs: CBC, BMP 07/14/16 07:30 07/15/16 06:15 INR, PTT INR 0.97 (0.82-1.09) 07/11/16 10:02 Assessment/Plan Problem List - Problem (1) Abnormal bruising Code(s): R23.8 - OTHER SKIN CHANGES (2) Elevated troponin level Code(s): R74.8 - ABNORMAL LEVELS OF OTHER SERUM ENZYMES (3) Generalized weakness Code(s): R53.1 - WEAKNESS (4) Hypothyroid Code(s): E03.9 - HYPOTHYROIDISM, UNSPECIFIED Qualifiers: Hypothyroidism type: acquired Qualified Code(s): E03.9 - Hypothyroidism , unspecified (5) Polymyalgia rheumatica Code(s): M35.3 - POLYMYALGIA RHEUMATICA (6) Shingles outbreak Code(s): B02.9 - ZOSTER WITHOUT COMPLICATIONS Qualifiers: Herpes zoster complications: with ocular involvement Herpes zoster ocular complication detail: unspecified herpes zoster eye disease Qualified Code(s): 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
[2016-07-16] MEDS ORDERED: PT OWN MED DRAWER 7, Y5N ONE ×3 (01:37→16:58)
[2016-07-16] MEDS: DEXTROSE 5% IVPB SCH ×3 (01:42→17:04)
[2016-07-16] MEDS: WATER IVPB SCH ×3 (01:42→17:04)
[2016-07-16] MEDS: ACYCLOVIR IVPB SCH ×3 (01:42→17:04)
[2016-07-16] MEDS: GABAPENTIN 300 MG CAPSULE (FP) PO SCH ×3 (06:31→23:19)
[2016-07-16] MEDS: LEVOTHYROXINE NA 75 MCG TABLET (FP) PO SCH (06:31)
[2016-07-16 08:18] LABS: CALCIUM 9.1 mg/dL (8.5-10.1); COCKROFT - GAULT 65.875; CREATININE 0.6 mg/dL (0.55-1.02); MAGNESIUM 2.1 mg/dL (1.8-2.4); PHOSPHOROUS 2.5 mg/dL (2.5-4.9)
[2016-07-16] MEDS ORDERED: ESCITALOPRAM OXALATE 10 MG TABLET (FP) ONE (10:23)
[2016-07-16] MEDS: ENOXAPARIN NA (PORCINE) 40 MG/0.4 ML DISP.SYRIN SQ SCH (10:29)
[2016-07-16] MEDS: ERTAPENEM SODIUM 1 GM in SODIUM CHLORIDE 50 ML IVPB SCH (10:30)
[2016-07-16] MEDS: amLODIPine BESYLATE 5 MG TABLET (FP) PO SCH (10:30)
[2016-07-16] MEDS: PANTOPRAZOLE 20 MG TABLET (FP) PO SCH (10:30)
[2016-07-16] MEDS: ESCITALOPRAM OXALATE 20 MG TABLET (FP) PO SCH (10:30)
[2016-07-16] MEDS: predniSONE 10 MG TABLET (UD) PO SCH (10:30)
[2016-07-16] MEDS: LACTOBACILLUS ACIDOPHILUS 1 EACH TAB (FP) PO SCH (10:30)
[2016-07-16] MEDS: prednisoLONE ACETATE 0.12% OPTH SUSP- 5 ML BOTTLE OS SCH ×4 (10:33→23:21)
[2016-07-16] MEDS: CLOTRIMAZOLE 1% CREAM 15 GM TUBE TP SCH ×2 (10:33→23:22)
[2016-07-16] MEDS: BACITRACIN 30 GM TUBE TOPICAL OINTMENT TP SCH (10:34)
--- NOTE | 2016-07-16 13:51 | PN ---
Physical Exam: SUBJECTIVE: Patient seen and examined Patient resting in bed, nad. afebrile and hemodynamically stable. aaox3. feels well, ambulating with PT, rash improved, intermittant facial pain. no h/a. no change in vision. denies f/c, n/v, confusion, palpitations, chest pain, sob, difficulty swallowing, abd pain, diarrhea, dysuria. OBJECTIVE: Vital Signs Period Temp Pulse Resp BP Sys/Arriaza Pulse Ox Last 24 Hr 98.0 F-98.7 F 56-77 20-20 145-156/71-78 96 GENERAL: Awake, alert, and fully oriented, in mild distress. HEAD: improved L sided erythema, crusted small vesicles by hairline, rash improving EYES: Pupils equal, round and reactive to light, extraocular movements intact, L sclera not injected. no ptosis, no change in vision EARS, NOSE, THROAT: Dry mucous membranes. NECK: supple without lymphadenopathy, JVD, or masses. LUNGS: mild bibasilar crackles HEART: Regular rate and rhythm, normal S1 and S2 grade 3 systolic murmur at r sternal boarder ABDOMEN: Soft, nontender, not distended, normoactive bowel sounds, no guarding, no rebound, no masses. No hepatomegaly or splenomegaly. LLQ colostoly MUSCULOSKELETAL: No CVA tenderness. diffuse muscle and joint tenderness UPPER EXTREMITIES: No peripheral edema. LOWER EXTREMITIES: 1+ pulses, warm, well-perfused. No peripheral edema. bruised skin on anterior thighs, b/l knee abrasions NEUROLOGICAL: Cranial nerves II-XII intact. Normal speech. 5/5 ur strength b/ l. 5/5 plantarflexion, 4+/5 dorsiflexion, 4+/5 thigh flexion, 1+ patellar reflexes b/l PSYCHIATRIC: Cooperative. Good eye contact. Appropriate mood and affect. SKIN: lesions as above Laboratory Results - last 24 hr 07/16/16 06:15 Sodium 144 Potassium 3.8 Chloride 108 H Carbon Dioxide 29 Anion Gap 7 L BUN 12 Creatinine 0.6 Random Glucose 82 Calcium 9.1 Phosphorus 2.5 Magnesium 2.1 Active Medications Generic Name Dose Route Start Last Admin Trade Name Freq PRN Reason Stop Dose Admin Acetaminophen 650 mg 07/11/16 16:03 Tylenol - PO Q8H PRN FEVER OR PAIN Amlodipine Besylate 5 mg 07/12/16 10:00 07/16/16 10:30 Norvasc - PO 5 mg DAILY [facility] Administration Bacitracin 1 applic 07/12/16 10:00 07/16/16 10:34 Bacitracin - TP 1 applic DAILY [facility] Administration Clotrimazole 1 applic 07/11/16 22:00 07/16/16 10:33 Lotrimin 1% Cream - TP 1 applic BID [facility] Administration Enoxaparin Sodium 40 mg 07/14/16 10:00 07/16/16 10:29 Lovenox - SQ 40 mg DAILY [facility] Administration Escitalopram Oxalate 20 mg 07/12/16 10:00 07/16/16 10:30 Lexapro - PO 20 mg DAILY [facility] Administration Gabapentin 300 mg 07/11/16 22:00 07/16/16 13:30 Neurontin - PO 300 mg TID [facility] Administration IV Flush 8 ml 07/15/16 11:20 Picc Line Flush IVPUSH PRN PRN Protocol Acyclovir 320 mg/ Dextrose 106.4 mls @ 100 mls/hr 07/12/16 11:00 07/16/16 10:30 IVPB 100 mls/hr Q8H-IV [facility] Administration Ertapenem 1 gm/ Sodium 50 mls @ 100 mls/hr 07/13/16 12:45 07/16/16 10:30 Chloride IVPB 100 mls/hr DAILY [facility] Administration Protocol Sodium Chloride 1,000 mls @ 50 mls/hr 07/15/16 15:25 07/15/16 22:15 Normal Saline - IV 50 mls/hr ASDIR [facility] Administration Lactobacillus Acidophilus 1 tab 07/12/16 10:30 07/16/16 10:30 Bacid - PO 1 tab DAILY [facility] Administration Levothyroxine Sodium 75 mcg 07/12/16 07:00 07/16/16 06:31 Synthroid - PO 75 mcg DAILY@0700 [facility] Administration Pantoprazole Sodium 20 mg 07/12/16 10:00 07/16/16 10:30 Protonix - PO 20 mg DAILY [facility] Administration Prednisolone Acetate 2 drop 07/12/16 14:00 07/16/16 13:31 Pred Mild 0.12% - OS 2 drop QID [facility] Administration Prednisone 10 mg 07/12/16 10:00 07/16/16 10:30 Deltasone - PO 10 mg DAILY [facility] Administration Tramadol HCl 50 mg 07/11/16 16:03 07/13/16 20:24 Ultram - PO 50 mg Q8H PRN Administration PAIN ASSESSMENT/PLAN: This is an 89 yo F with PMH of diverticulitis s/p colostoly 3 yrs ago, sciatica , polymyalgia rheumatica, paroxysmal a fib, hx gib, hx hepatic abscess 2011 and hypothyroidism, who presents due to h/a and fall. Acute Herpes zoster infection -in setting of recent prednisone use and old age -improving; L eye no longer injected, no change in vision, rash less pronounced -IV Acyclovir 320 tid renal dosing; NS@50 to avoid JASS. day 5 of 7-8 total, then switch to PO -prednisolone eye drops L eye UTI -likely not the cause of weakness (due to dehydration) -cultures ESBL, ertapenem day 4 of 7 per ID -VRE rectal swab negative JASS -resolved -hold cozaar Skin abrasions: -improving with bacitracin tp polymyalgia rheumatica -continue pred 10 d, neurontin, tramadol Hypothyroidism -synthroid, ppi HTN -norvasc with hold parameters FEN NS@50 lytes stable na restricted diet Linnea, ppi Dispo: med [facility] Problem List - Problems (1) Abnormal bruising Code(s): R23.8 - OTHER SKIN CHANGES (2) Elevated troponin level Code(s): R74.8 - ABNORMAL LEVELS OF OTHER SERUM ENZYMES (3) Generalized weakness Code(s): R53.1 - WEAKNESS (4) Hypothyroid Code(s): E03.9 - HYPOTHYROIDISM, UNSPECIFIED Qualifiers: Hypothyroidism type: acquired Qualified Code(s): E03.9 - Hypothyroidism, unspecified (5) Polymyalgia rheumatica Code(s): M35.3 - POLYMYALGIA RHEUMATICA (6) Shingles outbreak Code(s): B02.9 - ZOSTER WITHOUT COMPLICATIONS Qualifiers: 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 - New Patient This patient is new to me today: No - Critical Care Critical Care patient: No - Discharge Referral Referred to [facility] Med P.C.: No
--- NOTE | 2016-07-16 14:18 | PN ---
Teaching Attending Note Name of Resident: Lucina Brown ATTENDING PHYSICIAN STATEMENT I saw and evaluated the patient. I reviewed the resident's note and discussed the case with the resident. I agree with the resident's findings and plan as documented. SUBJECTIVE: no fever or chills, discomfort in L sided face , no MALDONADO or visual changes. OBJECTIVE: NAD, Awake, pleasant and cooperative HEENT: MMM, improved rash in L face and taoist . crusted herpes lesions . slight erythema , resolved congestion of L conjunctiva CV: RRR, 2/6 SM at RUSB. no JVD Lungs: CTAB Ext : trace edema on LE . has bruising b/l anterior thighs which turned greenish , abrasions on knees with bacitracin ointment on . 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 She was found to have Herpes zoster, JASS, and mild rhabdo 1- Disseminated herpes zoster: skin lesions and eye conjunctivitis are better now. No MALDONADO - Cont IV acyclovir day 6. will probably need IV for 3 more days then switch to po - steroids drops to the L eye 2- JASS:resolved . cont but IVF with IV acyclovir . cont to hold ARB, norvasc in mean time for HTN. 3- Complicated UTI: with ESBL. cont ertapenem day 4 4- H/o P A fib, off AC due to GI bleed rate controlled. 5- PMR: cont steroids at home dose Hopefully ,Friday will the last day of ertapenem and Iv acyclovir , then can go to rehab
[2016-07-16] MEDS: SODIUM CHLORIDE 1,000 ML IV SCH (17:04)
--- NOTE | 2016-07-16 19:39 | PN ---
Progress Note, Physician History of Present Illness: patient continues to improve no issues rash is clearing up still with some active vesicles - Current Medication List Current Medications: Active Medications Acetaminophen (Tylenol -) 650 mg PO Q8H PRN PRN Reason: FEVER OR PAIN Amlodipine Besylate (Norvasc -) 5 mg PO DAILY [facility] Last Admin: 07/16/16 10:30 Dose: 5 mg Bacitracin (Bacitracin -) 1 applic TP DAILY [facility] Last Admin: 07/16/16 10:34 Dose: 1 applic Clotrimazole (Lotrimin 1% Cream -) 1 applic TP BID [facility] Last Admin: 07/16/16 10:33 Dose: 1 applic Enoxaparin Sodium (Lovenox -) 40 mg SQ DAILY [facility] Last Admin: 07/16/16 10:29 Dose: 40 mg Escitalopram Oxalate (Lexapro -) 20 mg PO DAILY [facility] Last Admin: 07/16/16 10:30 Dose: 20 mg Gabapentin (Neurontin -) 300 mg PO TID [facility] Last Admin: 07/16/16 13:30 Dose: 300 mg IV Flush (Picc Line Flush) 8 ml IVPUSH PRN PRN PRN Reason: Protocol Acyclovir 320 mg/ Dextrose 106.4 mls @ 100 mls/hr IVPB Q8H-IV [facility] Last Admin: 07/16/16 17:04 Dose: 100 mls/hr Ertapenem 1 gm/ Sodium (Chloride) 50 mls @ 100 mls/hr IVPB DAILY [facility] PRN Reason: Protocol Last Admin: 07/16/16 10:30 Dose: 100 mls/hr Sodium Chloride (Normal Saline -) 1,000 mls @ 50 mls/hr IV ASDIR [facility] Last Admin: 07/16/16 17:04 Dose: 50 mls/hr Lactobacillus Acidophilus (Bacid -) 1 tab PO DAILY [facility] Last Admin: 07/16/16 10:30 Dose: 1 tab Levothyroxine Sodium (Synthroid -) 75 mcg PO DAILY@0700 [facility] Last Admin: 07/16/16 06:31 Dose: 75 mcg Pantoprazole Sodium (Protonix -) 20 mg PO DAILY [facility] Last Admin: 07/16/16 10:30 Dose: 20 mg Prednisolone Acetate (Pred Mild 0.12% -) 2 drop OS QID [facility] Last Admin: 07/16/16 17:07 Dose: 2 drop Prednisone (Deltasone -) 10 mg PO DAILY [facility] Last Admin: 07/16/16 10:30 Dose: 10 mg Tramadol HCl (Ultram -) 50 mg PO Q8H PRN PRN Reason: PAIN Last Admin: 07/13/16 20:24 Dose: 50 mg - Objective Vital Signs: Vital Signs Temperature 98.0 F 07/16/16 14:00 Pulse Rate 63 07/16/16 14:00 Respiratory Rate 17 07/16/16 14:00 Blood Pressure 150/73 07/16/16 10:00 O2 Sat by Pulse Oximetry (%) 96 07/16/16 10:00 Constitutional: Yes: No Distress, Calm Eyes: Yes: Other (cleared up vesicles clearing) Cardiovascular: Yes: Regular Rate and Rhythm Respiratory: Yes: Regular, CTA Bilaterally Gastrointestinal: Yes: Normal Bowel Sounds, Soft Musculoskeletal: Yes: WNL Extremities: Yes: WNL Integumentary: Yes: Rash (improving) Neurological: Yes: Alert, Oriented Psychiatric: Yes: Alert, Oriented Labs: CBC, BMP 07/14/16 07:30 07/16/16 06:15 INR, PTT INR 0.97 (0.82-1.09) 07/11/16 10:02 Assessment/Plan Problem List - Problem (1) Abnormal bruising Code(s): R23.8 - OTHER SKIN CHANGES (2) Elevated troponin level Code(s): R74.8 - ABNORMAL LEVELS OF OTHER SERUM ENZYMES (3) Generalized weakness Code(s): R53.1 - WEAKNESS (4) Hypothyroid Code(s): E03.9 - HYPOTHYROIDISM, UNSPECIFIED Qualifiers: Hypothyroidism type: acquired Qualified Code(s): E03.9 - Hypothyroidism , unspecified (5) Polymyalgia rheumatica Code(s): M35.3 - POLYMYALGIA RHEUMATICA (6) Shingles outbreak Code(s): B02.9 - ZOSTER WITHOUT COMPLICATIONS Qualifiers: Herpes zoster complications: with ocular involvement Herpes zoster ocular complication detail: unspecified herpes zoster eye disease Qualified Code(s): 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 will probably need 2-3 days of iv acylovir before switching to oral will continue to monitor
[2016-07-17] MEDS: DEXTROSE 5% IVPB SCH ×3 (01:35→17:21)
[2016-07-17] MEDS: ACYCLOVIR IVPB SCH ×3 (01:35→17:21)
[2016-07-17] MEDS: WATER IVPB SCH ×3 (01:35→17:21)
[2016-07-17] MEDS: GABAPENTIN 300 MG CAPSULE (FP) PO SCH ×3 (06:22→21:24)
[2016-07-17] MEDS: LEVOTHYROXINE NA 75 MCG TABLET (FP) PO SCH (06:22)
[2016-07-17 08:32] LABS: CALCIUM 9.1 mg/dL (8.5-10.1); COCKROFT - GAULT 79.05; CREATININE 0.5 mg/dL (0.55-1.02)
[2016-07-17] MEDS: ERTAPENEM SODIUM 1 GM in SODIUM CHLORIDE 50 ML IVPB SCH (10:30)
[2016-07-17] MEDS ORDERED: LIDOCAINE HCL 2% JELLY (5 ML/TUBE) TP PRN (10:52)
[2016-07-17] MEDS ORDERED: ESCITALOPRAM OXALATE 10 MG TABLET (FP) ONE (11:02)
[2016-07-17] MEDS ORDERED: PT OWN MED DRAWER 7, Y5N ONE ×3 (11:03→21:23)
[2016-07-17] MEDS: LACTOBACILLUS ACIDOPHILUS 1 EACH TAB (FP) PO SCH (11:09)
[2016-07-17] MEDS: amLODIPine BESYLATE 5 MG TABLET (FP) PO SCH (11:09)
[2016-07-17] MEDS: predniSONE 10 MG TABLET (UD) PO SCH (11:09)
[2016-07-17] MEDS: PANTOPRAZOLE 20 MG TABLET (FP) PO SCH (11:09)
[2016-07-17] MEDS: ESCITALOPRAM OXALATE 20 MG TABLET (FP) PO SCH (11:09)
[2016-07-17] MEDS: ENOXAPARIN NA (PORCINE) 40 MG/0.4 ML DISP.SYRIN SQ SCH (11:10)
[2016-07-17] MEDS: BACITRACIN 30 GM TUBE TOPICAL OINTMENT TP SCH (11:12)
[2016-07-17] MEDS: prednisoLONE ACETATE 0.12% OPTH SUSP- 5 ML BOTTLE OS SCH ×4 (11:12→21:25)
[2016-07-17] MEDS: traMADol HCL 50 MG TABLET PO PRN (11:13)
[2016-07-17] MEDS: CLOTRIMAZOLE 1% CREAM 15 GM TUBE TP SCH ×2 (11:13→21:25)
--- NOTE | 2016-07-17 11:42 | PN ---
Progress Note, Physician History of Present Illness: patient continues to improve no issues rash is clearing up sitting in chair no complaints - Current Medication List Current Medications: Active Medications Acetaminophen (Tylenol -) 650 mg PO Q8H PRN PRN Reason: FEVER OR PAIN Amlodipine Besylate (Norvasc -) 5 mg PO DAILY [facility] Last Admin: 07/17/16 11:09 Dose: 5 mg Bacitracin (Bacitracin -) 1 applic TP DAILY [facility] Last Admin: 07/17/16 11:12 Dose: 1 applic Clotrimazole (Lotrimin 1% Cream -) 1 applic TP BID [facility] Last Admin: 07/17/16 11:13 Dose: 1 applic Enoxaparin Sodium (Lovenox -) 40 mg SQ DAILY [facility] Last Admin: 07/17/16 11:10 Dose: 40 mg Escitalopram Oxalate (Lexapro -) 20 mg PO DAILY [facility] Last Admin: 07/17/16 11:09 Dose: 20 mg Gabapentin (Neurontin -) 300 mg PO TID [facility]PL[facility] BY [facility] Last Admin: 07/17/16 06:22 Dose: 300 mg Acyclovir 320 mg/ Dextrose 106.4 mls @ 100 mls/hr IVPB Q8H-IV REPLACED BY [facility] Last Admin: 07/17/16 11:08 Dose: 100 mls/hr Ertapenem 1 gm/ Sodium (Chloride) 50 mls @ 100 mls/hr IVPB DAILY [facility] BY [facility] PRN Reason: Protocol Last Admin: 07/17/16 10:30 Dose: 100 mls/hr Sodium Chloride (Normal Saline -) 1,000 mls @ 50 mls/hr IV ASDIR REPLACED BY [facility] Last Admin: 07/16/16 17:04 Dose: 50 mls/hr Lactobacillus Acidophilus (Bacid -) 1 tab PO DAILY [facility] Last Admin: 07/17/16 11:09 Dose: 1 tab Levothyroxine Sodium (Synthroid -) 75 mcg PO DAILY@0700 [facility] Last Admin: 07/17/16 06:22 Dose: 75 mcg Lidocaine HCl (Xylocaine 2% Jelly) 1 applic TP DAILY PRN PRN Reason: PAIN Pantoprazole Sodium (Protonix -) 20 mg PO DAILY [facility] BY [facility] Last Admin: 07/17/16 11:09 Dose: 20 mg Prednisolone Acetate (Pred Mild 0.12% -) 2 drop OS QID [facility]PL[facility] BY [facility] Last Admin: 07/17/16 11:12 Dose: 2 drop Prednisone (Deltasone -) 10 mg PO DAILY [facility] Last Admin: 07/17/16 11:09 Dose: 10 mg Tramadol HCl (Ultram -) 50 mg PO Q8H PRN PRN Reason: PAIN Last Admin: 07/17/16 11:13 Dose: 50 mg - Objective Vital Signs: Vital Signs Temperature 97.6 F 07/17/16 06:19 Pulse Rate 55 L 07/17/16 06:19 Respiratory Rate 20 07/17/16 06:19 Blood Pressure 155/76 07/17/16 06:19 O2 Sat by Pulse Oximetry (%) 96 07/16/16 21:00 Constitutional: Yes: No Distress, Calm Neck: Yes: Supple, Trachea Midline Cardiovascular: Yes: Regular Rate and Rhythm Respiratory: Yes: Regular, CTA Bilaterally Gastrointestinal: Yes: Normal Bowel Sounds, Soft Musculoskeletal: Yes: WNL Extremities: Yes: WNL Integumentary: Yes: Rash (much better) Neurological: Yes: Alert, Oriented Psychiatric: Yes: Alert, Oriented Labs: CBC, BMP 07/14/16 07:30 07/17/16 06:40 INR, PTT INR 0.97 (0.82-1.09) 07/11/16 10:02 Assessment/Plan Problem List - Problem (1) Abnormal bruising Code(s): R23.8 - OTHER SKIN CHANGES (2) Elevated troponin level Code(s): R74.8 - ABNORMAL LEVELS OF OTHER SERUM ENZYMES (3) Generalized weakness Code(s): R53.1 - WEAKNESS (4) Hypothyroid Code(s): E03.9 - HYPOTHYROIDISM, UNSPECIFIED Qualifiers: Hypothyroidism type: acquired Qualified Code(s): E03.9 - Hypothyroidism , unspecified (5) Polymyalgia rheumatica Code(s): M35.3 - POLYMYALGIA RHEUMATICA (6) Shingles outbreak Code(s): B02.9 - ZOSTER WITHOUT COMPLICATIONS Qualifiers: Herpes zoster complications: with ocular involvement Herpes zoster ocular complication detail: unspecified herpes zoster eye disease Qualified Code(s): B02.30 - Zoster ocular disease, unspecified (7) Diastolic CHF Code(s): I50.30 - UNSPECIFIED DIASTOLIC (CONGESTIVE) HEART FAILURE (8) PAF (paroxysmal atrial fibrillation) Code(s): I48.0 - PAROXYSMAL ATRIAL FIBRILLATION (9) Dehydration Code(s): E86.0 - DEHYDRATION 10 uti esbl plan continue current mgmt tomorrow should be able to switch to oral acylovir also tomorrow will be the last dose of ertapenam continue to monitor vesicles nearly resolved
--- NOTE | 2016-07-17 14:00 | PN ---
Teaching Attending Note Name of Resident: Lucina Brown ATTENDING PHYSICIAN STATEMENT I saw and evaluated the patient. I reviewed the resident's note and discussed the case with the resident. I agree with the resident's findings and plan as documented. SUBJECTIVE:some tenderness lateral to L eye. improves with cream. denies CP, SOB ,fever, chills, blurred vision or tinnitus OBJECTIVE: Last Vital Signs Temp Pulse Resp BP Pulse Ox 97.8 F 74 20 120/72 96 07/17/16 10:00 07/17/16 10:00 07/17/16 10:00 07/17/16 10:07/16/16 21:00 General NAD HEENT crusting lesions involving L orbit and laterally to L ear ASSESSMENT AND PLAN: 89yo F with PMH HTN, ruptured diverticulum s/p bowel resection and colostomy, afib presented to the ER and was admitted for further evaluation 1. Disseminated herpes Zoster- lesions appear to have crusted over. on acyclovir IV day7. on low dose IVF to prevent JASS. then switch to po. steroid ggt to L eye. lidocaine cream 2. ESBL UTI- symptoms resolved. on ERtpaenem day 5. to complete abx course tomorrow per ID 3. JASS- resolved. cont low dose IVF to prevent crystallization 4. afib- not on anticoagulation due to recent GI bleed. rate controlled 5. PMR- on low dose steroids 6. D/c planning tomorrow once abx are completed
--- NOTE | 2016-07-17 14:16 | PN ---
Physical Exam: SUBJECTIVE: Patient seen and examined Patient resting in bed, nad. afebrile and hemodynamically stable. aaox3. feels well, ambulating with PT to door and back using walker, still below baseline, rash improved, intermittent facial pain. no h/a. no change in vision. denies f/c , n/v, confusion, palpitations, chest pain, sob, difficulty swallowing, abd pain , diarrhea, dysuria. OBJECTIVE: Vital Signs Period Temp Pulse Resp BP Sys/Arriaza Pulse Ox Last 24 Hr 97.6 F-97.8 F 55-74 16-20 120-155/69-76 96 GENERAL: Awake, alert, and fully oriented, in mild distress. HEAD: improved L sided erythema, crusted small vesicles by hairline, rash improving EYES: Pupils equal, round and reactive to light, extraocular movements intact, L sclera not injected. no ptosis, no change in vision EARS, NOSE, THROAT: Dry mucous membranes. NECK: supple without lymphadenopathy, JVD, or masses. LUNGS: mild bibasilar crackles HEART: Regular rate and rhythm, normal S1 and S2 grade 3 systolic murmur at r sternal boarder ABDOMEN: Soft, nontender, not distended, normoactive bowel sounds, no guarding, no rebound, no masses. No hepatomegaly or splenomegaly. LLQ colostoly MUSCULOSKELETAL: No CVA tenderness. diffuse muscle and joint tenderness UPPER EXTREMITIES: No peripheral edema. LOWER EXTREMITIES: 1+ pulses, warm, well-perfused. No peripheral edema. bruised skin on anterior thighs, b/l knee abrasions NEUROLOGICAL: Cranial nerves II-XII intact. Normal speech. 5/5 ur strength b/ l. 5/5 plantarflexion, 4+/5 dorsiflexion, 4+/5 thigh flexion, 1+ patellar reflexes b/l PSYCHIATRIC: Cooperative. Good eye contact. Appropriate mood and affect. SKIN: lesions as above Laboratory Results - last 24 hr 07/17/16 06:40 Sodium 145 Potassium 3.7 Chloride 106 Carbon Dioxide 28 Anion Gap 11 BUN 14 Creatinine 0.5 L Random Glucose 70 L Calcium 9.1 Active Medications Generic Name Dose Route Start Last Admin Trade Name Freq PRN Reason Stop Dose Admin Acetaminophen 650 mg 07/11/16 16:03 Tylenol - PO Q8H PRN FEVER OR PAIN Amlodipine Besylate 5 mg 07/12/16 10:00 07/17/16 11:09 Norvasc - PO 5 mg DAILY [facility] Administration Bacitracin 1 applic 07/12/16 10:00 07/17/16 11:12 Bacitracin - TP 1 applic DAILY [facility] Administration Clotrimazole 1 applic 07/11/16 22:00 07/17/16 11:13 Lotrimin 1% Cream - TP 1 applic BID [facility] Administration Enoxaparin Sodium 40 mg 07/14/16 10:00 07/17/16 11:10 Lovenox - SQ 40 mg DAILY [facility] Administration Escitalopram Oxalate 20 mg 07/12/16 10:00 07/17/16 11:09 Lexapro - PO 20 mg DAILY [facility] Administration Gabapentin 300 mg 07/11/16 22:00 07/17/16 06:22 Neurontin - PO 300 mg TID [facility] Administration Acyclovir 320 mg/ Dextrose 106.4 mls @ 100 mls/hr 07/12/16 11:00 07/17/16 11:08 IVPB 100 mls/hr Q8H-IV [facility] Administration Ertapenem 1 gm/ Sodium 50 mls @ 100 mls/hr 07/13/16 12:45 07/17/16 10:30 Chloride IVPB 100 mls/hr DAILY [facility] Administration Protocol Sodium Chloride 1,000 mls @ 50 mls/hr 07/15/16 15:25 07/16/16 17:04 Normal Saline - IV 50 mls/hr ASDIR [facility] Administration Lactobacillus Acidophilus 1 tab 07/12/16 10:30 07/17/16 11:09 Bacid - PO 1 tab DAILY [facility] Administration Levothyroxine Sodium 75 mcg 07/12/16 07:00 07/17/16 06:22 Synthroid - PO 75 mcg DAILY@0700 [facility] Administration Lidocaine HCl 1 applic 07/17/16 10:52 Xylocaine 2% Jelly TP DAILY PRN PAIN Pantoprazole Sodium 20 mg 07/12/16 10:00 07/17/16 11:09 Protonix - PO 20 mg DAILY [facility] Administration Prednisolone Acetate 2 drop 07/12/16 14:00 07/17/16 11:12 Pred Mild 0.12% - OS 2 drop QID [facility] Administration Prednisone 10 mg 07/12/16 10:00 07/17/16 11:09 Deltasone - PO 10 mg DAILY [facility] Administration Tramadol HCl 50 mg 07/11/16 16:03 07/17/16 11:13 Ultram - PO 50 mg Q8H PRN Administration PAIN ASSESSMENT/PLAN: This is an 89 yo F with PMH of diverticulitis s/p colostoly 3 yrs ago, sciatica , polymyalgia rheumatica, paroxysmal a fib, hx gib, hx hepatic abscess 2011 and hypothyroidism, who presents due to h/a and fall. Acute Herpes zoster infection -in setting of recent prednisone use and old age -improving; L eye no longer injected, no change in vision, rash less pronounced -IV Acyclovir 320 tid renal dosing; NS@50 to avoid JASS. day 6 of 7 switch to PO tomorrow -prednisolone eye drops L eye UTI -likely not the cause of weakness (due to dehydration) -cultures ESBL, ertapenem day 5 of 6 per ID -VRE rectal swab negative JASS -resolved -hold cozaar Skin abrasions: -improving with bacitracin tp polymyalgia rheumatica -continue pred 10 d, neurontin, tramadol Hypothyroidism -synthroid, ppi HTN -norvasc with hold parameters FEN NS@50 lytes stable na restricted diet Linnea, ppi Dispo: [facility]. Plan to dc to rehab tomorrow Problem List - Problems (1) Abnormal bruising Code(s): R23.8 - OTHER SKIN CHANGES (2) Elevated troponin level Code(s): R74.8 - ABNORMAL LEVELS OF OTHER SERUM ENZYMES (3) Generalized weakness Code(s): R53.1 - WEAKNESS (4) Hypothyroid Code(s): E03.9 - HYPOTHYROIDISM, UNSPECIFIED Qualifiers: Hypothyroidism type: acquired Qualified Code(s): E03.9 - Hypothyroidism, unspecified (5) Polymyalgia rheumatica Code(s): M35.3 - POLYMYALGIA RHEUMATICA (6) Shingles outbreak Code(s): B02.9 - ZOSTER WITHOUT COMPLICATIONS Qualifiers: 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 - New Patient This patient is new to me today: No - Critical Care Critical Care patient: No - Discharge Referral Referred to [facility] Med P.C.: No
[2016-07-17] MEDS: SODIUM CHLORIDE 1,000 ML IV SCH ×2 (17:22→22:01)
[2016-07-18] MEDS ORDERED: PT OWN MED DRAWER 7, Y5N ONE ×2 (01:07→10:20)
[2016-07-18] MEDS: WATER IVPB SCH ×2 (01:26→10:28)
[2016-07-18] MEDS: ACYCLOVIR IVPB SCH ×2 (01:26→10:28)
[2016-07-18] MEDS: DEXTROSE 5% IVPB SCH ×2 (01:26→10:28)
[2016-07-18] MEDS: LEVOTHYROXINE NA 75 MCG TABLET (FP) PO SCH (06:04)
[2016-07-18] MEDS: GABAPENTIN 300 MG CAPSULE (FP) PO SCH ×2 (06:04→14:40)
[2016-07-18 09:27] VITALS: BP 143/74; TEMP 98
[2016-07-18] MEDS ORDERED: ESCITALOPRAM OXALATE 10 MG TABLET (FP) ONE (10:19)
[2016-07-18] MEDS: ERTAPENEM SODIUM 1 GM in SODIUM CHLORIDE 50 ML IVPB SCH (10:27)
[2016-07-18] MEDS: ENOXAPARIN NA (PORCINE) 40 MG/0.4 ML DISP.SYRIN SQ SCH (10:27)
[2016-07-18] MEDS: PANTOPRAZOLE 20 MG TABLET (FP) PO SCH (10:27)
[2016-07-18] MEDS: predniSONE 10 MG TABLET (UD) PO SCH (10:27)
[2016-07-18] MEDS: LACTOBACILLUS ACIDOPHILUS 1 EACH TAB (FP) PO SCH (10:27)
[2016-07-18] MEDS: ESCITALOPRAM OXALATE 20 MG TABLET (FP) PO SCH (10:27)
[2016-07-18] MEDS: amLODIPine BESYLATE 5 MG TABLET (FP) PO SCH (10:27)
[2016-07-18] MEDS: BACITRACIN 30 GM TUBE TOPICAL OINTMENT TP SCH (10:28)
[2016-07-18] MEDS: prednisoLONE ACETATE 0.12% OPTH SUSP- 5 ML BOTTLE OS SCH ×2 (10:32→14:42)
[2016-07-18] MEDS: CLOTRIMAZOLE 1% CREAM 15 GM TUBE TP SCH (10:32)
[2016-07-18] MEDS: traMADol HCL 50 MG TABLET PO PRN (11:41)
[2016-07-18 13:42] VITALS: PULSE 55
--- NOTE | 2016-07-18 13:53 | PN ---
Progress Note, Physician History of Present Illness: patient doing well no complaints vesicles are drying up eye looks good - Current Medication List Current Medications: Active Medications Acetaminophen (Tylenol -) 650 mg PO Q8H PRN PRN Reason: FEVER OR PAIN Amlodipine Besylate (Norvasc -) 5 mg PO DAILY [facility] Last Admin: 07/18/16 10:27 Dose: 5 mg Bacitracin (Bacitracin -) 1 applic TP DAILY [facility] Last Admin: 07/18/16 10:28 Dose: 1 applic Clotrimazole (Lotrimin 1% Cream -) 1 applic TP BID [facility] Last Admin: 07/18/16 10:32 Dose: 1 applic Enoxaparin Sodium (Lovenox -) 40 mg SQ DAILY [facility] Last Admin: 07/18/16 10:27 Dose: 40 mg Escitalopram Oxalate (Lexapro -) 20 mg PO DAILY [facility] Last Admin: 07/18/16 10:27 Dose: 20 mg Gabapentin (Neurontin -) 300 mg PO TID [facility] Last Admin: 07/18/16 06:04 Dose: 300 mg Sodium Chloride (Normal Saline -) 1,000 mls @ 50 mls/hr IV ASDIR [facility] Last Admin: 07/17/16 22:01 Dose: 50 mls/hr Lactobacillus Acidophilus (Bacid -) 1 tab PO DAILY [facility] Last Admin: 07/18/16 10:27 Dose: 1 tab Levothyroxine Sodium (Synthroid -) 75 mcg PO DAILY@0700 [facility] Last Admin: 07/18/16 06:04 Dose: 75 mcg Lidocaine HCl (Xylocaine 2% Jelly) 1 applic TP DAILY PRN PRN Reason: PAIN Pantoprazole Sodium (Protonix -) 20 mg PO DAILY [facility] Last Admin: 07/18/16 10:27 Dose: 20 mg Prednisolone Acetate (Pred Mild 0.12% -) 2 drop OS QID [facility] Last Admin: 07/18/16 10:32 Dose: 2 drop Prednisone (Deltasone -) 10 mg PO DAILY [facility] Last Admin: 07/18/16 10:27 Dose: 10 mg Tramadol HCl (Ultram -) 50 mg PO Q8H PRN PRN Reason: PAIN Last Admin: 07/18/16 11:41 Dose: 50 mg - Objective Vital Signs: Vital Signs Temperature 98 F 07/18/16 13:41 Pulse Rate 55 L 07/18/16 13:41 Respiratory Rate 17 07/18/16 13:41 Blood Pressure 143/74 07/18/16 09:26 O2 Sat by Pulse Oximetry (%) 96 07/16/16 21:00 Constitutional: Yes: No Distress, Calm HENT: Yes: Other (vesicles drying up) Neck: Yes: Supple Cardiovascular: Yes: Regular Rate and Rhythm Respiratory: Yes: Regular, CTA Bilaterally Gastrointestinal: Yes: Normal Bowel Sounds, Soft Musculoskeletal: Yes: WNL Extremities: Yes: WNL Neurological: Yes: Alert, Oriented Psychiatric: Yes: Alert Labs: CBC, BMP 07/14/16 07:30 07/17/16 06:40 INR, PTT INR 0.97 (0.82-1.09) 07/11/16 10:02 Assessment/Plan Problem List - Problem (1) Abnormal bruising Code(s): R23.8 - OTHER SKIN CHANGES (2) Elevated troponin level Code(s): R74.8 - ABNORMAL LEVELS OF OTHER SERUM ENZYMES (3) Generalized weakness Code(s): R53.1 - WEAKNESS (4) Hypothyroid Code(s): E03.9 - HYPOTHYROIDISM, UNSPECIFIED Qualifiers: Hypothyroidism type: acquired Qualified Code(s): E03.9 - Hypothyroidism , unspecified (5) Polymyalgia rheumatica Code(s): M35.3 - POLYMYALGIA RHEUMATICA (6) Shingles outbreak Code(s): B02.9 - ZOSTER WITHOUT COMPLICATIONS Qualifiers: Herpes zoster complications: with ocular involvement Herpes zoster ocular complication detail: unspecified herpes zoster eye disease Qualified Code(s): B02.30 - Zoster ocular disease, unspecified (7) Diastolic CHF Code(s): I50.30 - UNSPECIFIED DIASTOLIC (CONGESTIVE) HEART FAILURE (8) PAF (paroxysmal atrial fibrillation) Code(s): I48.0 - PAROXYSMAL ATRIAL FIBRILLATION (9) Dehydration Code(s): E86.0 - DEHYDRATION 10 uti esbl plan continue current mgmt stopped ertapenam switched to oral acylovir make sure acylovir is stopped after another 4 days
--- NOTE | 2016-07-18 13:54 | DS ---
Physical Exam: SUBJECTIVE: Patient seen and examined Patient resting in bed, nad. afebrile and hemodynamically stable. aaox3. feels well, ambulating with PT to door and back using walker, rash resolved, intermittent facial pain. no h/a. no change in vision. denies f/c, n/v, confusion, palpitations, chest pain, sob, difficulty swallowing, abd pain, diarrhea, dysuria. OBJECTIVE: Vital Signs Period Temp Pulse Resp BP Sys/Arriaza Pulse Ox Last 24 Hr 97.4 F-98 F 51-63 12-18 122-156/63-74 PHYSICAL EXAM GENERAL: Awake, alert, and fully oriented, in mild distress. HEAD: normocephalic, rash resolved EYES: Pupils equal, round and reactive to light, extraocular movements intact, L sclera not injected. no ptosis, no change in vision EARS, NOSE, THROAT: Dry mucous membranes. NECK: supple without lymphadenopathy, JVD, or masses. LUNGS: mild bibasilar crackles HEART: Regular rate and rhythm, normal S1 and S2 grade 3 systolic murmur at r sternal boarder ABDOMEN: Soft, nontender, not distended, normoactive bowel sounds, no guarding, no rebound, no masses. No hepatomegaly or splenomegaly. LLQ colostoly MUSCULOSKELETAL: No CVA tenderness. diffuse muscle and joint tenderness UPPER EXTREMITIES: No peripheral edema. LOWER EXTREMITIES: 1+ pulses, warm, well-perfused. No peripheral edema. bruised skin on anterior thighs, b/l knee abrasions NEUROLOGICAL: Cranial nerves II-XII intact. Normal speech. 5/5 ur strength b/ l. 5/5 plantarflexion, 4+/5 dorsiflexion, 4+/5 thigh flexion, 1+ patellar reflexes b/l PSYCHIATRIC: Cooperative. Good eye contact. Appropriate mood and affect. SKIN: lesions as above LABS HOSPITAL COURSE: Date of Admission:07/11/16 This is an 89 yo F with PMH of diverticulitis s/p colostoly 3 yrs ago, sciatica , polymyalgia rheumatica, paroxysmal a fib, hx gib, hx hepatic abscess 2011 and hypothyroidism, who presents due to h/a and fall. Per daughter and patient, she was in usual health until 24hr before presentation, when she developed severe L sided h/a and facial pain. She was unable to eat or drink anything since. This morning she woke up feeling very weak and felt her legs give out when she tried to stand up from bed. She crawled on the floor and abraised her knees. OF note, she has been on prednisone for the past 3 weeks for her polymyalgia. She wad admitted due to Acute Herpes zoster infection, dehydration with jass and ESBL UTI. She vas evaluated by opthalmology; zoster involved l eye sclera but not retina, and it involved tip of nose, making it disseminated. JASS resolved with IVF. She was seen by ID. She finished a 7 day course of IV acyclovir and a 6 day course of IV ertapenem. her rash resolved and she was discharged on PO valtrex for 5 days, renally dosed. 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 You were also dehydrated. You finished a course of intravenous antiviral and antibacterial medication. Please take valtrex (antiviral pill) twice a day for 5 more days starting friday07/19/16. You can use Lidocaine jelly on painful areas on scalp but avoid eyes and mouth. Follow up with primary care doctor in 1 week. See an opthalmologist in 2 weeks. Drink plenty of fluids to avoid dehydration. Return to hospital if symptoms resume. Referrals: Parminder Erazo MD [Primary Care Provider] - 1 Week Eligio Thomas [Staff Physician] - 2 Weeks Disposition: INTERMEDIATE FACILITY - Home Medications Comprehensive Discharge Medication List: Ambulatory Orders Losartan Potassium [Cozaar] 25 mg PO DAILY 01/16/14 Omeprazole [Prilosec (RX)] 20 mg PO DAILY 01/16/14 Levothyroxine [Synthroid -] 75 mcg PO DAILY #30 tablet 03/02/14 Escitalopram Oxalate [Lexapro -] 20 mg PO BID 04/05/14 Prednisone [Deltasone -] 5 mg PO BID 04/05/14 Gabapentin [Neurontin] 300 mg PO QID 07/11/16 Tramadol HCl/Acetaminophen [Tramadol-Acetaminophn 37.5-325] 1 each PO QID Valacyclovir HCl [Valtrex -] 500 mg PO BID #10 tablet 07/18/16 Problem List - Problems (1) Abnormal bruising Code(s): R23.8 - OTHER SKIN CHANGES (2) Elevated troponin level Code(s): R74.8 - ABNORMAL LEVELS OF OTHER SERUM ENZYMES (3) Generalized weakness Code(s): R53.1 - WEAKNESS (4) Hypothyroid Code(s): E03.9 - HYPOTHYROIDISM, UNSPECIFIED Qualifiers: Hypothyroidism type: acquired Qualified Code(s): E03.9 - Hypothyroidism, unspecified (5) Polymyalgia rheumatica Code(s): M35.3 - POLYMYALGIA RHEUMATICA (6) Shingles outbreak Code(s): B02.9 - ZOSTER WITHOUT COMPLICATIONS Qualifiers: Herpes zoster complications: with ocular involvement Herpes zoster ocular complication detail: unspecified herpes zoster eye disease Qualified Code(s): B02.30 - Zoster ocular disease, unspecified (7) Diastolic CHF Code(s): I50.30 - UNSPECIFIED DIASTOLIC (CONGESTIVE) HEART FAILURE (8) PAF (paroxysmal atrial fibrillation) Code(s): I48.0 - PAROXYSMAL ATRIAL FIBRILLATION (9) Dehydration Code(s): E86.0 - DEHYDRATION This patient is new to me today: No Emergency Visit: Yes ED Registration Date: 07/11/16 Care time: The patient presented to the Emergency Department on the above date and was hospitalized for further evaluation of their emergent condition. Critical Care patient: No - Discharge Referral Referred to [facility] No
[2016-07-18] MEDS ORDERED: ACYCLOVIR 400 MG TABLET PO SCH (14:00)
--- NOTE | 2016-07-18 19:01 | PN ---
Teaching Attending Note Name of Resident: Lucina Brown ATTENDING PHYSICIAN STATEMENT I saw and evaluated the patient. I reviewed the resident's note and discussed the case with the resident. I agree with the resident's findings and plan as documented. Patient is feeling better, but very weak to ambulate. Vital Signs Temperature 98 F 07/18/16 13:41 Pulse Rate 55 L 07/18/16 13:41 Respiratory Rate 17 07/18/16 13:41 Blood Pressure 143/74 07/18/16 09:26 O2 Sat by Pulse Oximetry (%) 96 07/16/16 21:00 CBCD WBC 5.6 K/mm3 (4.0-10.0) 07/14/16 07:30 RBC 4.20 M/mm3 (3.60-5.2) 07/14/16 07:30 Hgb 13.0 GM/dL (10.7-15.3) 07/14/16 07:30 Hct 38.9 % (32.4-45.2) 07/14/16 07:30 MCV 92.5 fl (80-96) 07/14/16 07:30 MCHC 33.5 g/dl (32.0-36.0) 07/14/16 07:30 RDW 16.6 % (11.6-15.6) H 07/14/16 07:30 Plt Count 129 K/MM3 (134-434) L 07/14/16 07:30 MPV 7.4 fl (7.5-11.1) L 07/14/16 07:30 CMP Sodium 145 mmol/L (136-145) 07/17/16 06:40 Potassium 3.7 mmol/L (3.5-5.1) 07/17/16 06:40 Chloride 106 mmol/L (98-107) 07/17/16 06:40 Carbon Dioxide 28 mmol/L (21-32) 07/17/16 06:40 Anion Gap 11 (8-16) 07/17/16 06:40 BUN 14 mg/dL (7-18) 07/17/16 06:40 Creatinine 0.5 mg/dL (0.55-1.02) L 07/17/16 06:40 Creat Clearance w eGFR 30.42 (>60) 07/11/16 10:02 Random Glucose 70 mg/dL (74-106) L 07/17/16 06:40 Calcium 9.1 mg/dL (8.5-10.1) 07/17/16 06:40 Total Bilirubin 1.2 mg/dL (0.2-1.0) H D 07/11/16 10:02 AST 50 U/L (15-37) H D 07/11/16 10:02 ALT 34 U/L (12-78) D 07/11/16 10:02 Alkaline Phosphatase 116 U/L (45-117) D 07/11/16 10:02 Total Protein 7.2 g/dl (6.4-8.2) D 07/11/16 10:02 Albumin 3.8 g/dl (3.4-5.0) D 07/11/16 10:02 CARDIAC ENZYMES Creatine Kinase 1000 IU/L (26-192) H D 07/11/16 10:02 Troponin I 0.16 ng/ml (0.00-0.05) H 07/11/16 21:40 Home Medications Medication Instructions Recorded Losartan Potassium [Cozaar] 25 mg PO DAILY 01/16/14 Omeprazole [Prilosec (RX)] 20 mg PO DAILY 01/16/14 Levothyroxine [Synthroid -] 75 mcg PO DAILY #30 tablet 03/02/14 Escitalopram Oxalate [Lexapro -] 20 mg PO BID 04/05/14 Prednisone [Deltasone -] 5 mg PO BID 04/05/14 Gabapentin [Neurontin] 300 mg PO QID 07/11/16 Tramadol HCl/Acetaminophen 1 each PO QID 07/11/16 [Tramadol-Acetaminophn 37.5-325] Lidocaine 2% Jelly [Xylocaine 2% 1 applic TP DAILY PRN #1 applic 07/18/16 Jelly -] Valacyclovir HCl [Valtrex -] 500 mg PO BID #10 tablet 07/18/16 HEENT: Herpes zoster is all cleared up ASSESSMENT AND PLAN: Patient is 89yo F with PMH HTN, ruptured diverticulum s/p bowel resection and colostomy, afib presented to the ER and was admitted for further evaluation # Disseminated herpes Zoster- lesions appear to have crusted over. on acyclovir IV day7.wll switch to po valtrex for 5 more days., eye improved will continue Lidocaine gel prn # ESBL UTI- symptoms resolved.s/p Ertapaenem completed # s/p JASS- resolved. # afib- not on anticoagulation due to recent GI bleed. rate controlled # PMR- on low dose steroids D/c patient to rehab. for further care and strengthening
== END 2016-07-18 18:46 | DRG 683 ==
LOC: JER 08:46 → JERBED 12:04 → J6S 15:30
PROVIDERS: ADMIT Internal Medicine; ATTEND Internal Medicine
DX: N17.9 Acute kidney failure, unspecified (principal); I24.8 Other forms of acute ischemic heart disease; I50.30 Unspecified diastolic (congestive) heart failure; N39.0 Urinary tract infection, site not specified; B02.30 Zoster ocular disease, unspecified; M62.82 Rhabdomyolysis; E86.0 Dehydration; M35.3 Polymyalgia rheumatica; M54.30 Sciatica, unspecified side; R51 Headache; K57.90 Diverticulosis of intestine, part unspecified, without perforation or abscess without bleeding; R79.89 Other specified abnormal findings of blood chemistry; M15.0 Primary generalized (osteo)arthritis; B02.9 Zoster without complications; S80.212A Abrasion, left knee, initial encounter; S80.211A Abrasion, right knee, initial encounter; W18.39XA Other fall on same level, initial encounter; Y93.9 Activity, unspecified; Y92.003 Bedroom of unspecified non-institutional (private) residence as the place of occurrence of the external cause; I48.0 Paroxysmal atrial fibrillation; B96.1 Klebsiella pneumoniae [K. pneumoniae] as the cause of diseases classified elsewhere; R74.8 Abnormal levels of other serum enzymes; R53.1 Weakness
CPT/HCPCS: 36415; 70450-TC; 71010-TC; 72170-TC; 73502-TC-LT; 73502-TC-RT; 73562-TC-LT; 73562-TC-RT; 80048; 80053; 81003; 81015; 82550; 82553; 83735; 83880; 84100; 84132; 84484; 85025; 85027; 85610; 86787; 87081; 87086; 87186; 93005; 93010; 93306-TC; 97116-GP; 97162-PG; 97164-GP; 99283-25

== ENCOUNTER 2016-10-23 12:44 | Inpatient (IN) | payer OTHER, MEDICARE ==
[2016-10-23 12:49] VITALS: BMI 56.6
--- NOTE | 2016-10-23 12:57 | PDOC ---
History of Present Illness - General Chief Complaint: Wound Infection Stated Complaint: WOUND CARE SENT Time Seen by Provider: 10/23/16 12:56 History Source: Patient - History of Present Illness Initial Comments: 10/23/16 14:33 Pt. is an 89 y/o female, PMH diverticulitis/diverticulosis, s/p colostomy, polymyagia rheumatica, who presents to the ED after her evaluation in wound care today. Pt. is seen by Dr. Bowman, plastics. Pt. states that she tripped walking up the stairs approximately one week ago and she "took a good chunk of skin" off of her L garcia. Pt. states that it has not been healing well and she has been evaluated by wound care. Dr. Bowman saw her today and is requesting that the pt. be admitted so she can have the wound surgically debrided. A wound culture of the site was collected at wound care. Denies, fevers, chills, malaise , N/V/D, chest pain, SOB, weakness, and fatigue. Past History - Travel Traveled outside of the country in the last 30 days: No Close contact w/someone who was outside of country & ill: No - Past Medical History Allergies/Adverse Reactions: Allergies Allergy/AdvReac Type Severity Reaction Status Date / Time Sulfa (Sulfonamide Allergy Intermediate Hives Verified 10/23/16 12:49 Antibiotics) [Sulfa(Sulfonamide Antibiotics)] chickpeas Allergy Intermediate Swelling Uncoded 10/23/16 12:49 chocolate Allergy Intermediate Swelling Uncoded 10/23/16 12:49 ham Allergy Intermediate Swelling Uncoded 10/23/16 12:49 tuna Allergy Intermediate Swelling Uncoded 10/23/16 12:49 black beans Allergy Uncoded 10/23/16 12:49 Home Medications: Ambulatory Orders Amoxicillin/Potassium Clav [Augmentin 875-125 Tablet] 1 each PO BID #14 tablet 10/27/16 Escitalopram Oxalate [Lexapro -] 20 mg PO DAILY tablet 10/27/16 Losartan Potassium [Cozaar -] 25 mg PO DAILY tablet 10/27/16 Prednisone [Deltasone -] 5 mg PO DAILY tablet 10/27/16 Silver Sulfadiazine 1% Top Cr [Silvadene -] 1 applic TP BID jar 10/27/16 GI Disorders: (DIVERTICULITIS) Disorders: Yes (cystitis last 2010) HTN: Yes Liver Disease: (liver abscess 09/02) Thyroid Disease: Yes (hypothyroid) - Surgical History GI Surgery: Yes (COLOSTOMY) Orthopedic Surgery: Yes (hip fx ORIF right side october 2010) - Psycho/Social/Smoking Cessation Hx Anxiety: No Suicidal Ideation: No Smoking History: Never smoked Have you smoked in the past 12 months: No Hx Alcohol Use: No Drug/Substance Use Hx: No Substance Use Type: None Hx Substance Use Treatment: No Review of Systems - Review of Systems Able to Perform ROS?: Yes Is the patient limited Spanish proficient: No Constitutional: No: Chills, Fever, Weakness Respiratory: No: Cough, Shortness of Breath Cardiac (ROS): No: Chest Pain, Lightheadedness, Palpitations ABD/GI: No: Diarrhea, Nausea, Vomiting Musculoskeletal: Yes: Other (L lower leg pain over the mid garcia) Integumentary: Yes: Erythema (L lower leg pain over the mid garcia) Neurological: No: Headache, Numbness, Tingling, Weakness All Other Systems: Reviewed and Negative *Physical Exam - Vital Signs Last Vital Signs Temp Pulse Resp BP Pulse Ox 98.1 F 57 L 20 189/77 98 10/23/16 12:45 10/23/16 12:45 10/23/16 12:45 10/23/16 12:45 10/23/16 12:45 - Physical Exam Comments: 10/23/16 15:05 GENERAL: Well developed, well nourished. Awake and alert. No acute distress. HEENT: Normocephalic, atraumatic. PERRLA, EOMI. No conjunctival pallor. Sclera are non- icteric. Moist mucous membranes. Oropharynx is clear. NECK: Supple. Full ROM. No JVD. Carotid pulses 2+ and symmetric, without bruits. No thyromegaly. No lymphadenopathy. CARDIOVASCULAR: Regular rate and rhythm. No murmurs, rubs, or gallops. Distal pulses are 2+ and symmetric. PULMONARY: No evidence of respiratory distress. Lungs clear to auscultation bilaterally. No wheezing, rales or rhonchi. ABDOMINAL: Soft. Non-tender. Non-distended. No rebound or guarding. No organomegaly. Normoactive bowel sounds. MUSCULOSKELETAL Normal range of motion at all joints. No bony deformities or tenderness. No CVA tenderness. EXTREMITIES: No cyanosis. No clubbing. No edema. No calf tenderness. SKIN: Pt. refuses to have dressing taken down to evaluate the wound, as she states that the dressing was just placed. Warm and dry. Normal capillary refill. No rashes. No jaundice. NEUROLOGICAL: Alert, awake, appropriate. Cranial nerves 2-12 intact. No deficits to light touch and temperature in face, upper extremities and lower extremities. No motor deficits in the in face, upper extremities and lower extremities. Normoreflexic in the upper and lower extremities. Normal speech. Toes are down- going bilaterally. Gait is normal without ataxia. PSYCHIATRIC: Cooperative. Good eye contact. Appropriate mood and affect. General Appearance: Yes: Nourished, Appropriately Dressed, Other (sitting in wheel chair with left leg elevated). No: Apparent Distress Respiratory/Chest: positive: Lungs Clear, Normal Breath Sounds. negative: Chest Tender, Respiratory Distress, Crackles, Rales, Rhonchi Cardiovascular: positive: Regular Rhythm, Regular Rate, S1, S2 (present). negative: JVD, Murmur Extremity: positive: Normal Capillary Refill, Normal Range of Motion, Tender ( TTP of the L L extremity over the mid garcia) Integumentary: positive: Other (pt. refuses skin exam at this time. Does not want to move her leg, and wants to leave the new dressing placed by wound care intact.) Neurologic: positive: fruit pitter II-XII NML intact, Fully Oriented, Alert, Normal Mood/ Affect, Normal Response, Motor Strength 07/26 ED Treatment Course - LABORATORY CBC & Chemistry Diagram: 10/24/16 05:35 10/24/16 05:35 Medical Decision Making - Medical Decision Making 10/23/16 15:08 Patient is a 89-year-old female who presents to the emergency department with a wound to her left lower leg. Patient refuses to have dressing removed to evaluate the wound. She states she was just seen up at wound care and was sent to the emergency department so she could be admitted. We will call up to wound care to speak with nurse or doctor on as to plan. 10/23/16 15:25 Spoke with wound care. Plan is to admit the patient under Dr. milner ED. Patient is to be going to the OR on Friday for surgical debridement of her wounds. We will order admission labs, labs for OR, EKG, chest x-ray. Will also order x-ray of LLE to evaluate for possible old fracture. Patient complains of pain, we will treat at this time. 10/23/16 15:59 CXR: No infiltrate, or acute cardiopulmonary disease. LLE X-ray: Marked osteopenia. Soft tissue air lucency overlying the anterior aspect of the mid to distal fibula and recommend clinical correlation for ulceration/infection. No acute fracture is seen. Labs are unremarkable 10/23/16 16:[address] Nieves to admit the patient. She accepts the patient and will place in [facility]. *DC/Admit/Observation/Transfer Diagnosis at time of Disposition: Cellulitis Qualifiers: Site of cellulitis: extremity Site of cellulitis of extremity: lower extremity Laterality: left Qualified Code(s): L03.116 - Cellulitis of left lower limb - Discharge Dispostion Disposition: S/HOME HEALTH CARE Condition at time of disposition: Stable Admit: Yes - Prescriptions - Referrals
--- NOTE | 2016-10-23 14:42 | PDOC ---
*Physical Exam - Vital Signs Last Vital Signs Temp Pulse Resp BP Pulse Ox 98.1 F 57 L 20 189/77 98 10/23/16 12:45 10/23/16 12:45 10/23/16 12:45 10/23/16 12:45 10/23/16 12:45 - Physical Exam General Appearance: Yes: Appropriately Dressed HEENT: positive: ANTONIO, Normal ENT Inspection Respiratory/Chest: positive: Lungs Clear, Normal Breath Sounds Cardiovascular: positive: Regular Rhythm, Regular Rate Vascular Pulses: Dorsalis-Pedis (R): 2+, Doralis-Pedis (L): 2+ Gastrointestinal/Abdominal: positive: Normal Bowel Sounds Musculoskeletal: positive: Normal Inspection Extremity: positive: Normal Capillary Refill Integumentary: positive: Other (L anterior lower leg with skin tear 5x3cm with surrounding erythema and edema extending to foot ) ED Treatment Course - LABORATORY CBC & Chemistry Diagram: 10/23/16 14:04 10/23/16 14:04 Medical Decision Making - Medical Decision Making 10/23/16 15:43 Agree with PA's evaluation, assessment, and plan. 89 F with skin tear sustained last week, now with surrounding cellulitis refractory to outpt abx. Will admit per Dr. Bowman's instruction. - Labs - XR - Abx - Admit *DC/Admit/Observation/Transfer Diagnosis at time of Disposition: Cellulitis - Discharge Dispostion Condition at time of disposition: Stable Admit: Yes - Attestations Physician Attestion: 10/23/16 15:46 I, Dr. Mat Coombs MD, attest that this document has been prepared under my direction and personally reviewed by me in its entirety. I further attest, that it accurately reflects all work, treatment, procedures and medical decision -making performed by me.
[2016-10-23 15:13] LABS: BASOPHIL 0.5 % (0-2.0); MCH 31.4 pg (25.7-33.7); MCHC 33.2 g/dl (32.0-36.0); MEAN CELL VOLUME 94.8 fl (80-96); MEAN PLT VOLUME 7.9 fl (7.5-11.1); NEUTROPHILS 71.8 % (42.8-82.8); PLATELET COUNT 179 K/MM3 (134-434); RDW 16.5 % (11.6-15.6); WHITE BLOOD COUNT 8.4 K/mm3 (4.0-10.0)
[2016-10-23 15:25] LABS: INR 0.99 (0.82-1.09); PROTHROMBIN TIME (PATIENT) 10.9 SEC (9.98-11.88)
[2016-10-23 15:36] LABS: ALBUMIN 3.1 g/dl (3.4-5.0); ALK PHOS 87 U/L (45-117); ANION GAP 5 (8-16); BILIRUBIN,TOTAL 0.6 mg/dL (0.2-1.0); CALCIUM 9.3 mg/dL (8.5-10.1); CO2 32 mmol/L (21-32); CREATININE 0.6 mg/dL (0.55-1.02); GLUCOSE,RANDOM 76 mg/dL (74-106); SGOT/AST 22 U/L (15-37); SGPT/ALT 16 U/L (12-78); TOT PROT 6.1 g/dl (6.4-8.2)
[2016-10-23] MEDS ORDERED: VANCOMYCIN 1,000 MG in DEXTROSE 5%-WATER - 250 ML IVPB ONE (16:11)
[2016-10-23] MEDS ORDERED: PIPERACILLIN/TAZOB 3.375 GM 3.375 GM in DEXTROSE 5%-WATER - 50 ML IVPB ONE (16:12)
[2016-10-23] MEDS ORDERED: oxyCODONE HCL 5 MG TABLET PO ONE (16:21)
[2016-10-23] MEDS ORDERED: oxyCODONE HCL 5 MG TABLET ONE (16:24)
[2016-10-23] MEDS ORDERED: PIPERACILLIN/TAZOB 3.375 GM 50 ML IVPB ONE (16:24)
[2016-10-23] MEDS ORDERED: VANCOMYCIN 1 GRAM (PRE-DOCKED) 250 ML IVPB ONE (18:10)
--- NOTE | 2016-10-23 18:11 | HP ---
Admitting History and Physical - Primary Care Physician PCP: Reshma Rod - Admission History of Present Illness: wound llex fell 89 y/o female, PMH ... who presents to the ED after her evaluation in wound care today. Pt. is seen by Dr. Bowman, plastics. Pt. states that she tripped walking up the stairs approximately one week ago and she "took a good chunk of skin" off of her L garcia, wound has not been healing well and she has been evaluated by wound care. Dr. Bowman saw her today and is requesting that the pt. be admitted so she can have the wound surgically debrided. - Past Medical History Cardiovascular: Yes: AFIB, HTN, Hyperlipdemia Gastrointestinal: Yes: Diverticulosis, GERD Infectious Disease: Yes: Other (LIVER ABSCESS) Psych: Yes: Depression Endocrine: Yes: Hypothyroidism - Past Surgical History Past Surgical History: Yes: Hysterectomy - Smoking History Smoking history: Never smoked Have you smoked in the past 12 months: No - Alcohol/Substance Use Hx Alcohol Use: No - Social History ADL: Independent History of Recent Travel: No Home Medications - Allergies Allergies/Adverse Reactions: Allergies Allergy/AdvReac Type Severity Reaction Status Date / Time Sulfa (Sulfonamide Allergy Intermediate Hives Verified 10/23/16 12:49 Antibiotics) [Sulfa(Sulfonamide Antibiotics)] chickpeas Allergy Intermediate Swelling Uncoded 10/23/16 12:49 chocolate Allergy Intermediate Swelling Uncoded 10/23/16 12:49 ham Allergy Intermediate Swelling Uncoded 10/23/16 12:49 tuna Allergy Intermediate Swelling Uncoded 10/23/16 12:49 black beans Allergy Uncoded 10/23/16 12:49 - Home Medications Home Medications: Ambulatory Orders Amoxicillin/Potassium Clav [Augmentin 875-125 Tablet] 1 each PO BID #14 tablet 10/27/16 Physical Examination Vital Signs: Vital Signs Temperature 98.1 F 10/23/16 12:45 Pulse Rate 57 L 10/23/16 12:45 Respiratory Rate 20 10/23/16 12:45 Blood Pressure 189/77 10/23/16 12:45 O2 Sat by Pulse Oximetry (%) 98 10/23/16 12:45 Constitutional: Yes: No Distress HENT: Yes: Atraumatic Neck: Yes: Supple Cardiovascular: Yes: Regular Rate and Rhythm Respiratory: Yes: CTA Bilaterally Gastrointestinal: Yes: Normal Bowel Sounds Extremities: Yes: Other (lllex skin off ,) Neurological: Yes: Alert, Oriented Problem List - Problems (1) Cellulitis Assessment/Plan: iv abx id consult wound care Code(s): L03.90 - CELLULITIS, UNSPECIFIED Qualifiers: Site of cellulitis: extremity Site of cellulitis of extremity: lower extremity Laterality: left Qualified Code(s): L03.116 - Cellulitis of left lower limb (2) Hypothyroid Assessment/Plan: on meds Code(s): E03.9 - HYPOTHYROIDISM, UNSPECIFIED Qualifiers: Assessment/Plan Laboratory Tests 10/23/16 10/23/16 10/23/16 14:04 14:04 14:04 WBC 8.4 D RBC 4.44 Hgb 13.9 Hct 42.0 MCV 94.8 MCH 31.4 MCHC 33.2 RDW 16.5 H Plt Count 179 D MPV 7.9 Neutrophils % 71.8 D Lymphocytes % 18.8 D Monocytes % 7.9 Eosinophils % 1.0 D Basophils % 0.5 INR 0.99 Sodium 144 Potassium 3.8 Chloride 107 Carbon Dioxide 32 Anion Gap 5 L BUN 21 H D Creatinine 0.6 Creat Clearance w eGFR > 60 Random Glucose 76 Calcium 9.3 Total Bilirubin 0.6 D AST 22 D ALT 16 D Alkaline Phosphatase 87 D Total Protein 6.1 L Albumin 3.1 L Blood Type Antibody Screen Spec Expiration Date 10/23/16 14:04 WBC RBC Hgb Hct MCV MCH MCHC RDW Plt Count MPV Neutrophils % Lymphocytes % Monocytes % Eosinophils % Basophils % INR Sodium Potassium Chloride Carbon Dioxide Anion Gap BUN Creatinine Creat Clearance w eGFR Random Glucose Calcium Total Bilirubin AST ALT Alkaline Phosphatase Total Protein Albumin Blood Type Cancelled Antibody Screen Cancelled Spec Expiration Date Cancelled Active Medications Generic Name Dose Route Start Last Admin Trade Name Freq PRN Reason Stop Dose Admin Escitalopram Oxalate 20 mg 10/23/16 22:00 Lexapro - PO BID [facility] Hydromorphone HCl 1 mg 10/23/16 18:10 Dilaudid Injection - IVPB Q3H PRN PAIN Ampicillin Sodium/Sulbactam 100 mls @ 200 mls/hr 10/24/16 02:00 Sodium 3 gm/ Sodium Chloride IVPB Q8H-IV [facility] Levothyroxine Sodium 75 mcg 10/24/16 07:00 Synthroid - PO DAILY@0700 [facility] Losartan Potassium 25 mg 10/24/16 10:00 Cozaar - PO DAILY [facility]
--- NOTE | 2016-10-23 18:31 | CONSULT ---
Consult Consult Specialty:: infectious diseases Reason for Consultation:: cellulitis of the leg - History of Present Illness History of Present Illness: 89 y/o female, PMH ..admitted after her evaluation in wound care today. Pt. is seen by Dr. Bowman, plastics. Pt. states that she tripped walking up the stairs approximately one week ago and she "took a good chunk of skin" off of her L garcia. Pt. states that it has not been healing well and she has been evaluated by wound care. Dr. Bowman saw her today and is requesting that the pt. be admitted so she can have the wound surgically debrided. A wound culture of the site was collected at wound care. Denies, fevers, chills, malaise, N/V/D, chest pain, SOB, weakness, and fatigue. also of note is that patient has cellulitis surrounding the wound and erythema and tenderness present the wound is evaluated and it is uneven and ragged the surgeon plans to take the patient to the operating room and debride the wound and also to cx the wound and then once patient is stable probably graft the wound - History Source History Provided By: Patient, Family Member Limitations to Obtaining History: No Limitations - Past Medical History Cardio/Vascular: Yes: AFIB, HTN, Hyperlipdemia Gastrointestinal: Yes: Diverticulosis, GERD Infectious Disease: Yes: Other (LIVER ABSCESS) Psych: Yes: Depression Endocrine: Yes: Hypothyroidism - Past Surgical History Past Surgical History: Yes: Hysterectomy - Alcohol/Substance Use Hx Alcohol Use: No - Smoking History Smoking history: Never smoked Have you smoked in the past 12 months: No - Social History Usual Living Arrangement: Alone ADL: Independent History of Recent Travel: No Home Medications - Allergies Allergies/Adverse Reactions: Allergies Allergy/AdvReac Type Severity Reaction Status Date / Time Sulfa (Sulfonamide Allergy Intermediate Hives Verified 10/23/16 12:49 Antibiotics) [Sulfa(Sulfonamide Antibiotics)] chickpeas Allergy Intermediate Swelling Uncoded 10/23/16 12:49 chocolate Allergy Intermediate Swelling Uncoded 10/23/16 12:49 ham Allergy Intermediate Swelling Uncoded 10/23/16 12:49 tuna Allergy Intermediate Swelling Uncoded 10/23/16 12:49 black beans Allergy Uncoded 10/23/16 12:49 - Home Medications Home Medications: Ambulatory Orders Unobtainable [Unobtainable] 10/23/16 Review of Systems - Review of Systems Constitutional: reports: No Symptoms Eyes: reports: No Symptoms HENT: reports: No Symptoms Neck: reports: No Symptoms Cardiovascular: reports: No Symptoms Respiratory: reports: No Symptoms Gastrointestinal: reports: No Symptoms Genitourinary: reports: No Symptoms Musculoskeletal: reports: Extremity Pain, Other Integumentary: reports: Bruising, Wound Neurological: reports: No Symptoms Endocrine: reports: No Symptoms Hematology/Lymphatic: reports: No Symptoms Psychiatric: reports: No Symptoms Physical Exam Vital Signs: Vital Signs Temperature 98.1 F 10/23/16 12:45 Pulse Rate 57 L 10/23/16 12:45 Respiratory Rate 20 10/23/16 12:45 Blood Pressure 189/77 10/23/16 12:45 O2 Sat by Pulse Oximetry (%) 98 10/23/16 12:45 Constitutional: Yes: Calm, Mild Distress Eyes: Yes: Conjunctiva Clear Neck: Yes: Supple, Trachea Midline Cardiovascular: Yes: Regular Rate and Rhythm Respiratory: Yes: Regular, CTA Bilaterally Gastrointestinal: Yes: Normal Bowel Sounds, Soft Musculoskeletal: Yes: Other Extremities: Yes: Other Integumentary: Yes: Bruising, Erythema, Laceration, Skin Tear Wound/Incision: Yes: Dressing Removed, Reddened, Other (cellulitits surrounding the wound) Neurological: Yes: Alert, Oriented Psychiatric: Yes: Alert, Oriented Assessment/Plan Problem List - Problems (1) Cellulitis Code(s): L03.90 - CELLULITIS, UNSPECIFIED Qualifiers: Site of cellulitis: extremity Site of cellulitis of extremity: lower extremity Laterality: left Qualified Code(s): L03.116 - Cellulitis of left lower limb (2) Hypothyroid Code(s): E03.9 - HYPOTHYROIDISM, UNSPECIFIED Qualifiers: wound infection plan will await for blood cx wound cx when surgery is done will start patient on unasyn elevation of the leg rest as per primary and plastics
[2016-10-23] MEDS ORDERED: ACETAMINOPHEN 325 MG TABLET (FP) PO PRN (18:33)
[2016-10-23] MEDS ORDERED: ESCITALOPRAM OXALATE 20 MG TABLET (FP) PO SCH (22:00)
[2016-10-23] MEDS: HYDROmorphone HCL CARPU-JECT 1 MG/1 ML DISP.SYRIN IVPB PRN (22:18)
[2016-10-23] MEDS: HEPARIN NA (PORCINE) 5,000 UNITS/ML 1ML VIAL SQ SCH (22:19)
[2016-10-24] MEDS: ESCITALOPRAM OXALATE 20 MG TABLET (FP) PO SCH ×2 (01:21→09:13)
[2016-10-24] MEDS: AMPICILLIN NA/SULBACTAM NA 3 GM in SODIUM CHLORIDE 100 ML IVPB SCH ×3 (03:10→19:49)
[2016-10-24] MEDS: HYDROmorphone HCL CARPU-JECT 1 MG/1 ML DISP.SYRIN IVPB PRN ×2 (03:40→18:14)
[2016-10-24] MEDS: LEVOTHYROXINE NA 75 MCG TABLET (FP) PO SCH (06:41)
[2016-10-24 07:49] LABS: MCH 31.4 pg (25.7-33.7); MCHC 33.1 g/dl (32.0-36.0); MEAN CELL VOLUME 94.9 fl (80-96); MEAN PLT VOLUME 7.9 fl (7.5-11.1); PLATELET COUNT 163 K/MM3 (134-434); RDW 16.8 % (11.6-15.6); WHITE BLOOD COUNT 6.4 K/mm3 (4.0-10.0)
[2016-10-24 08:45] LABS: ALBUMIN 2.4 g/dl (3.4-5.0); ALK PHOS 73 U/L (45-117); ANION GAP 7 (8-16); BILIRUBIN,TOTAL 0.8 mg/dL (0.2-1.0); CALCIUM 8.4 mg/dL (8.5-10.1); CO2 31 mmol/L (21-32); CREATININE 0.5 mg/dL (0.55-1.02); GLUCOSE,RANDOM 73 mg/dL (74-106); SGOT/AST 16 U/L (15-37); SGPT/ALT 13 U/L (12-78); TOT PROT 4.9 g/dl (6.4-8.2)
[2016-10-24] MEDS: LOSARTAN POTASSIUM 25 MG TABLET PO SCH (09:13)
[2016-10-24] MEDS: HEPARIN NA (PORCINE) 5,000 UNITS/ML 1ML VIAL SQ SCH ×2 (09:13→21:46)
[2016-10-24] MEDS: predniSONE 5 MG TABLET (UD) PO SCH (09:13)
--- NOTE | 2016-10-24 10:54 | EKG ---
Test Reason : Blood Pressure : / mmHG Vent. Rate : 056 BPM Atrial Rate : 056 BPM P-R Int : 232 ms QRS Dur : 114 ms QT Int : 436 ms P-R-T Axes : 038 -16 065 degrees QTc Int : 420 ms SINUS BRADYCARDIA WITH 1ST DEGREE A-V BLOCK LEFT VENTRICULAR HYPERTROPHY WITH REPOLARIZATION ABNORMALITY ABNORMAL ECG WHEN COMPARED WITH ECG OF 11-JUL-2016 09:31, MI INTERVAL HAS INCREASED Confirmed by IVETTE FERNANDEZ, BUNNY ([id number]) on 10/24/2016 10:53:38 AM Referred By: Confirmed By:BUNNY STEELE MD
[2016-10-24 10:55] LABS: PLATELET ESTIMATE ADEQUATE (NORMAL)
[2016-10-24] MEDS: LACTOBACILLUS ACIDOPHILUS 1 EACH TAB (FP) PO SCH ×2 (13:45→21:46)
--- NOTE | 2016-10-24 14:29 | CONS ---
DATE OF CONSULTATION: 10/24/2016 TIME OF CONSULTATION: 10:25 a.m. CONSULTATION REQUESTED BY: Reshma Rod MD PREOPERATIVE EVALUATION HISTORY OF PRESENT ILLNESS: An 89-year-old white female with history of hypertension, hypothyroidism, polymyalgia rheumatica, history of depression, status post herpes zoster with apparent postherpetic neuralgia, was admitted to the hospital for laceration involving the left garcia which occurred approximately 1 week ago after she tripped and fell off the stairs. Patient is being scheduled for debridement. Patient denies having chest pain or discomfort either at rest or with exertion, no exertional dyspnea, paroxysmal nocturnal dyspnea, or orthopnea reported. No history of palpitations, lightheadedness, dizziness, presyncope, or syncope. No cough or expectoration. No history of pedal edema. No history of diabetes mellitus, no history of rheumatic fever. History of recurring urinary tract infections. PAST HISTORY: 1. As mentioned in the history of present illness. 2. History of osteopenia. 3. Osteoarthritis. 4. History of postherpetic neuralgia. 5. Status post ruptured diverticulitis. 6. Colostomy. 7. History of gastroesophageal reflux disease. SURGICAL HISTORY:1. Status post hysterectomy. 2. Surgery on the right shoulder for rotator cuff injury. 3. Abdominal surgery for ruptured diverticulitis with colostomy. 4. Status post bilateral cataract extraction. 5. Status post ORIF for right hip fracture. SOCIAL HISTORY: She is a . Has a son and a daughter. Is a nonsmoker and on a rate occasion has a drink. Has 1 cup of coffee. FAMILY HISTORY: Father in his 80s of a myocardial infarction. Mother in her 80s, was hypertensive. Has a brother and had a sister who apparently of cancer. ALLERGIES: 1. SULFONAMIDE. 2. FOOD ALLERGIES are as follows: a. CHICKPEAS. b. CHOCOLATE. c. HAM. d. CANNED TUNA. e. BLACK BEANS. MEDICATIONS PRIOR TO ADMISSION: 1. Losartan 25 mg p.o. daily. 2. Levothyroxine 75 mcg p.o. daily. 3. Lexapro 20 mg p.o. b.i.d. 4. Prilosec 20 mg p.o. daily. 5. Prednisone 5 mg p.o. b.i.d. 6. Neurontin 300 mg p.o. q.i.d. 7. Tramadol/acetaminophen 37.5-325 mg 1 p.o. q.i.d. 8. Cefadroxil 500 mg b.i.d. CURRENT MEDICATIONS: Also include the followin. Ampicillin 3 g IV q.8 h. 2. Heparin for DVT prophylaxis 5000 units subcutaneous b.i.d. 3. Hydromorphone 1 mg IV q.3 h. p.r.n. Patient had received vancomycin and piperacillin on admission. REVIEW OF SYSTEMS: Constitutional: No history of chills, fever, or night sweats, no history of unintentional weight loss. HEENT: No history of headaches, history of diplopia involving the left eye occurred related to herpes zoster of the face. Currently, no history of diplopia or blurred vision, no history of epistaxis or hoarseness, no history of tinnitus, history of bilateral deafness requiring hearing aids. Cardiovascular: No history of chest pain or discomfort, see history of present illness. Respiratory: No history of cough, expectoration, or hemoptysis. Gastrointestinal: See history of present illness, no history of nausea, vomiting, melena, or hematemesis. No history of recent abdominal discomfort or pain. Patient has a colostomy. Neurological: No history of dizziness, lightheadedness, seizures, or syncope. No history of focal weakness. Musculoskeletal: History of generalized arthralgias and myalgias. Endocrine: See history of present illness, no history of intolerance to cold or warm weather, no history of polyuria or polydipsia. Hematological/Lymphatics: No history of ecchymosis, anemia, or bleeding. No history of lymphadenopathy. PHYSICAL EXAMINATION:General: An 89-year-old alert female who is in no acute distress, no pallor, cyanosis, clubbing, or jaundice. Vital Signs: Blood pressure 144/63 mmHg, pulse 62 beats per minute and regular, respirations 18 per minute, temperature 98 degrees Fahrenheit. Weight was not available. Neck: Supple, no jugular venous distention, carotids were equal and upstrokes were normal, no bruits were heard, and no thyromegaly was present. Heart: PMI was in the 5th intercostal space, no heaves or thrills, S1 and S2 were normal, ejection systolic murmur grade 2/6 was heard at the 2nd right intercostal space and along the left sternal border ending in early systole. No diastolic murmur or gallops were heard. Lungs: Clear on auscultation. Abdomen: Protuberant, soft, and nontender. No hepatosplenomegaly or palpable masses were felt. There was an abdominal wall hernia, with a functioning colostomy. Extremities: There was no right calf tenderness or edema, left garcia was bandaged, there was swelling below the bandage and the skin was warm. Pulses were equal. LABORATORY DATA: Chemistry October 24, 2016: Sodium 145, potassium 3.8, chloride 107, CO2 31 mmol/L. BUN 15, creatinine 0.5 mg/dL. Random glucose was 73 mg/dL. Liver function tests were normal except albumin was 2.4. CBC: WBC count 6400. Hemoglobin 13.1 g/dL. Platelet count 163,000. Normal differential. INR was 0.99. X-ray, chest: Impression: Poor inspiratory effort with mid bibasilar plate-like atelectasis. ECG dated October 23, 2016: Sinus rhythm with 1st-degree AV block, LVH by voltage criteria, atypical R-wave progression V1 to V3, ST and T abnormalities involving the 1 and aVL. When compared to ECG of July 11, 2016, AK interval has increased. IMPRESSION: 1. Hypertension, hypertensive cardiovascular disease. 2. Hypothyroidism, on replacement therapy. 3. History of depression. 4. Polymyalgia rheumatica. 5. Osteoarthritis. 6. History of postherpetic neuralgia. 7. 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 8. Osteopenia. 9. Wound involving the left garcia, probably infected. 10. Status post colostomy. 11. Abdominal wall hernia. 12. History of gastroesophageal reflux disease. RECOMMENDATIONS: 1. There appears to be no absolute contraindication to the contemplated procedure. 2. Close cardiopulmonary monitoring. 3. Patient should receive her cardiac medication with sip of water on the day of the procedure. 4. Postoperative ECG. 5. Bedside echocardiogram. Thank you for your referral. Yours sincerely, HARRISON RIVERA M.D. [id number]
--- NOTE | 2016-10-24 14:31 | PN ---
Progress Note, Physician History of Present Illness: stable no new issues plan to take the patient to the operating room tomorrow - Current Medication List Current Medications: Active Medications Acetaminophen (Tylenol -) 650 mg PO Q6H PRN PRN Reason: FEVER OR PAIN Escitalopram Oxalate (Lexapro -) 20 mg PO DAILY [facility] Last Admin: 10/24/16 09:13 Dose: 20 mg Heparin Sodium (Porcine) (Heparin -) 5,000 unit SQ BID [facility] Last Admin: 10/24/16 09:13 Dose: 5,000 unit Hydromorphone HCl (Dilaudid Injection -) 1 mg IVPB Q3H PRN PRN Reason: PAIN Last Admin: 10/24/16 03:40 Dose: 1 mg Ampicillin Sodium/Sulbactam (Sodium 3 gm/ Sodium Chloride) 100 mls @ 200 mls/ hr IVPB Q8H-IV [facility] Last Admin: 10/24/16 10:10 Dose: 200 mls/hr Lactobacillus Acidophilus (Bacid -) 1 tab PO BID [facility] Last Admin: 10/24/16 13:45 Dose: 1 tab Levothyroxine Sodium (Synthroid -) 75 mcg PO DAILY@0700 [facility] Last Admin: 10/24/16 06:41 Dose: 75 mcg Losartan Potassium (Cozaar -) 25 mg PO DAILY [facility] Last Admin: 10/24/16 09:13 Dose: 25 mg Prednisone (Deltasone -) 5 mg PO DAILY [facility] Last Admin: 10/24/16 09:13 Dose: 5 mg - Objective Vital Signs: Vital Signs Temperature 98.5 F 10/24/16 13:48 Pulse Rate 68 10/24/16 13:48 Respiratory Rate 18 10/24/16 13:48 Blood Pressure 122/77 10/24/16 13:48 O2 Sat by Pulse Oximetry (%) 98 10/24/16 09:00 Constitutional: Yes: No Distress, Calm Cardiovascular: Yes: Regular Rate and Rhythm Respiratory: Yes: Regular, CTA Bilaterally Gastrointestinal: Yes: Normal Bowel Sounds, Soft Musculoskeletal: Yes: WNL Extremities: Yes: Other Integumentary: Yes: Skin Tear, Other Wound/Incision: Yes: Dressing Dry and Intact, Other Neurological: Yes: Alert, Oriented Psychiatric: Yes: Alert, Oriented Labs: CBC, BMP 10/24/16 05:35 10/24/16 05:35 INR, PTT INR 0.99 (0.82-1.09) 10/23/16 14:04 - ....Imaging X-ray: Report Reviewed, Image Reviewed Assessment/Plan Problem List - Problems (1) Cellulitis Code(s): L03.90 - CELLULITIS, UNSPECIFIED Qualifiers: Site of cellulitis: extremity Site of cellulitis of extremity: lower extremity Laterality: left Qualified Code(s): L03.116 - Cellulitis of left lower limb (2) Hypothyroid Code(s): E03.9 - HYPOTHYROIDISM, UNSPECIFIED Qualifiers: wound infection plan xray results noted xray seen leg improving continue abx for or tomorrow
--- NOTE | 2016-10-24 16:33 | PN ---
Progress Note (short form) - Note Progress Note: patient seen yesterday in wound clinic and admitted for soft tissue necrosis. Trauma left lower leg while taking stairs. treated at hospital ER in [place] Patient started on local Silvidine cream Dressing changed, no reaction to topical Silvidine cream. Swelling has decreased, erythema is decreasing, patient more comfortable Plan: Awaiting Medical clearance Once cleared will schedule for excisional debridement and follow up in wound clinic till ready for skin grafting Selected Entries 10/24/16 10/24/16 02:10 13:48 Temperature 97.8 F 98.5 F Pulse Rate 68 Blood Pressure 122/77 Blood Pressure 92 Mean
--- NOTE | 2016-10-24 17:23 | PN ---
Progress Note, Physician History of Present Illness: DOING WELL - Current Medication List Current Medications: Active Medications Acetaminophen (Tylenol -) 650 mg PO Q6H PRN PRN Reason: FEVER OR PAIN Escitalopram Oxalate (Lexapro -) 20 mg PO DAILY [facility] Last Admin: 10/24/16 09:13 Dose: 20 mg Heparin Sodium (Porcine) (Heparin -) 5,000 unit SQ BID [facility] Last Admin: 10/24/16 09:13 Dose: 5,000 unit Hydromorphone HCl (Dilaudid Injection -) 1 mg IVPB Q3H PRN PRN Reason: PAIN Last Admin: 10/24/16 03:40 Dose: 1 mg Ampicillin Sodium/Sulbactam (Sodium 3 gm/ Sodium Chloride) 100 mls @ 200 mls/ hr IVPB Q8H-IV [facility] Last Admin: 10/24/16 10:10 Dose: 200 mls/hr Lactobacillus Acidophilus (Bacid -) 1 tab PO BID [facility] Last Admin: 10/24/16 13:45 Dose: 1 tab Levothyroxine Sodium (Synthroid -) 75 mcg PO DAILY@0700 [facility] Last Admin: 10/24/16 06:41 Dose: 75 mcg Losartan Potassium (Cozaar -) 25 mg PO DAILY [facility] Last Admin: 10/24/16 09:13 Dose: 25 mg Prednisone (Deltasone -) 5 mg PO DAILY [facility] Last Admin: 10/24/16 09:13 Dose: 5 mg Silver Sulfadiazine (Silvadene -) 1 applic TP BID [facility] - Objective Vital Signs: Vital Signs Temperature 98.5 F 10/24/16 13:48 Pulse Rate 68 10/24/16 13:48 Respiratory Rate 18 10/24/16 13:48 Blood Pressure 122/77 10/24/16 13:48 O2 Sat by Pulse Oximetry (%) 98 10/24/16 09:00 Constitutional: Yes: No Distress HENT: Yes: Atraumatic Neck: Yes: Supple Cardiovascular: Yes: Regular Rate and Rhythm Respiratory: Yes: CTA Bilaterally Gastrointestinal: Yes: Normal Bowel Sounds Neurological: Yes: Alert, Oriented Labs: CBC, BMP 10/24/16 05:35 10/24/16 05:35 INR, PTT INR 0.99 (0.82-1.09) 10/23/16 14:04 Problem List - Problems (1) Cellulitis Assessment/Plan: iv abx id consult wound care Code(s): L03.90 - CELLULITIS, UNSPECIFIED Qualifiers: Site of cellulitis: extremity Site of cellulitis of extremity: lower extremity Laterality: left Qualified Code(s): L03.116 - Cellulitis of left lower limb (2) Hypothyroid Code(s): E03.9 - HYPOTHYROIDISM, UNSPECIFIED Qualifiers: Assessment/Plan echo done awaiting cardiology to clear pt medically stable sending ua today
[2016-10-24 20:14] LABS: URINE APPEARANCE CLEAR; URINE BILIRUBIN NEGATIVE (NEGATIVE); URINE BLOOD NEGATIVE (NEGATIVE); URINE COLOR STRAW; URINE GLUCOSE (UA) NEGATIVE (NEGATIVE); URINE KETONE NEGATIVE (NEGATIVE); URINE LEUK ESTERASE TRACE (NEGATIVE); URINE NITRITE NEGATIVE (NEGATIVE); URINE PROTEIN NEGATIVE (NEGATIVE); URINE UROBILINOGEN NEGATIVE mg/dL (0.2-1.0)
[2016-10-24 20:16] LABS: URINE BACTERIA RARE /hpf (NONE SEEN); URINE WBC 5 /hpf (3-5)
[2016-10-24] MEDS: SILVER SULFADIAZINE 1% TOP CREAM 400 GM JAR TP SCH (22:29)
[2016-10-25] MEDS: AMPICILLIN NA/SULBACTAM NA 3 GM in SODIUM CHLORIDE 100 ML IVPB SCH ×3 (01:27→17:18)
[2016-10-25] MEDS: LEVOTHYROXINE NA 75 MCG TABLET (FP) PO SCH (06:41)
[2016-10-25] MEDS ORDERED: BUPIVACAINE HCL/PF 0.25% (2.5MG/ML) 10 ML VIAL ONE (11:46)
[2016-10-25] MEDS ORDERED: MIDAZOLAM HCL 2 MG/2 ML SINGLE DOSE VIAL ONE (11:57)
[2016-10-25] MEDS ORDERED: AMPICILLIN NA/SULBACTAM NA 3 GM/100 ML PRE-DOCKED IVPB ONE (12:02)
[2016-10-25] MEDS ORDERED: BUPIVACAINE HCL/PF 0.25% (2.5MG/ML) 10 ML VIAL IJ ONE (12:05)
[2016-10-25] MEDS ORDERED: POVIDONE-IODINE OINTMENT 10% - 28.4 GM TUBE ONE (12:33)
[2016-10-25] MEDS ORDERED: ONDANSETRON 4 MG/2 ML VIAL IVPUSH PRN (12:49)
[2016-10-25] MEDS: predniSONE 5 MG TABLET (UD) PO SCH (14:17)
[2016-10-25] MEDS: LACTOBACILLUS ACIDOPHILUS 1 EACH TAB (FP) PO SCH ×2 (14:17→21:51)
[2016-10-25] MEDS: LOSARTAN POTASSIUM 25 MG TABLET PO SCH (14:17)
[2016-10-25] MEDS: HEPARIN NA (PORCINE) 5,000 UNITS/ML 1ML VIAL SQ SCH ×2 (14:18→21:51)
[2016-10-25] MEDS: SILVER SULFADIAZINE 1% TOP CREAM 400 GM JAR TP SCH ×2 (14:18→21:51)
[2016-10-25] MEDS: ESCITALOPRAM OXALATE 20 MG TABLET (FP) PO SCH (14:18)
--- NOTE | 2016-10-25 14:40 | PN ---
Progress Note, Physician History of Present Illness: patient stable doing well post op from wound debridement no complaints - Current Medication List Current Medications: Active Medications Acetaminophen (Tylenol -) 650 mg PO Q6H PRN PRN Reason: FEVER OR PAIN Last Admin: 10/25/16 06:44 Dose: 650 mg Escitalopram Oxalate (Lexapro -) 20 mg PO DAILY [facility] Last Admin: 10/25/16 14:18 Dose: Not Given Fentanyl (Sublimaze Injection -) 25 mcg IVPUSH [id number] PRN PRN Reason: PAIN Stop: 10/28/16 12:50 Heparin Sodium (Porcine) (Heparin -) 5,000 unit SQ BID [facility] Last Admin: 10/25/16 14:18 Dose: Not Given Hydromorphone HCl (Dilaudid Injection -) 1 mg IVPB Q3H PRN PRN Reason: PAIN Last Admin: 10/24/16 18:14 Dose: 1 mg Ampicillin Sodium/Sulbactam (Sodium 3 gm/ Sodium Chloride) 100 mls @ 200 mls/ hr IVPB Q8H-IV [facility] Last Admin: 10/25/16 14:18 Dose: Not Given Lactated Ringer's (Lactated Ringers Solution) 1,000 mls @ 75 mls/hr IV ASDIR [facility] Lactobacillus Acidophilus (Bacid -) 1 tab PO BID [facility] Last Admin: 10/25/16 14:17 Dose: Not Given Levothyroxine Sodium (Synthroid -) 75 mcg PO DAILY@0700 [facility] Last Admin: 10/25/16 06:41 Dose: 75 mcg Losartan Potassium (Cozaar -) 25 mg PO DAILY [facility] Last Admin: 10/25/16 14:17 Dose: Not Given Ondansetron HCl (Zofran Injection) 4 mg IVPUSH Q6H PRN PRN Reason: NAUSEA AND/OR VOMITING Stop: 10/25/16 18:50 Prednisone (Deltasone -) 5 mg PO DAILY [facility] Last Admin: 10/25/16 14:17 Dose: Not Given Silver Sulfadiazine (Silvadene -) 1 applic TP BID [facility] Last Admin: 10/25/16 14:18 Dose: Not Given - Objective Vital Signs: Vital Signs Temperature 98.0 F 10/25/16 13:45 Pulse Rate 64 10/25/16 13:45 Respiratory Rate 16 10/25/16 13:45 Blood Pressure 165/70 10/25/16 13:45 O2 Sat by Pulse Oximetry (%) 100 10/25/16 13:30 Constitutional: Yes: No Distress, Calm Cardiovascular: Yes: Regular Rate and Rhythm Respiratory: Yes: Regular, CTA Bilaterally Gastrointestinal: Yes: Normal Bowel Sounds, Soft Musculoskeletal: Yes: WNL Extremities: Yes: Other Wound/Incision: Yes: Dressing Dry and Intact, Other Neurological: Yes: Alert, Oriented Psychiatric: Yes: Alert, Oriented Labs: CBC, BMP 10/24/16 05:35 10/24/16 05:35 INR, PTT INR 0.99 (0.82-1.09) 10/23/16 14:04 Assessment/Plan Problem List - Problems (1) Cellulitis Code(s): L03.90 - CELLULITIS, UNSPECIFIED Qualifiers: Site of cellulitis: extremity Site of cellulitis of extremity: lower extremity Laterality: left Qualified Code(s): L03.116 - Cellulitis of left lower limb (2) Hypothyroid Code(s): E03.9 - HYPOTHYROIDISM, UNSPECIFIED Qualifiers: wound infection plan pictures of the wound seen post debridement clean wound surrounding cellulitis improving we will give abx iv till friday evaluate the cellulitis on friday and decide if we can switch to oral abx discussed with the plastics also discussed with the patient and family
[2016-10-25] MEDS: HYDROmorphone HCL CARPU-JECT 1 MG/1 ML DISP.SYRIN IVPB PRN ×2 (14:51→20:11)
[2016-10-25] MEDS: LACTATED RINGERS SOLUTION 1,000 ML IV SCH (15:25)
--- NOTE | 2016-10-25 20:02 | PN ---
Progress Note, Physician History of Present Illness: DOING WELL - Current Medication List Current Medications: Active Medications Acetaminophen (Tylenol -) 650 mg PO Q6H PRN PRN Reason: FEVER OR PAIN Last Admin: 10/25/16 06:44 Dose: 650 mg Escitalopram Oxalate (Lexapro -) 20 mg PO DAILY [facility] Last Admin: 10/25/16 14:18 Dose: Not Given Fentanyl (Sublimaze Injection -) 25 mcg IVPUSH [id number] PRN PRN Reason: PAIN Stop: 10/28/16 12:50 Heparin Sodium (Porcine) (Heparin -) 5,000 unit SQ BID [facility] Last Admin: 10/25/16 14:18 Dose: Not Given Hydromorphone HCl (Dilaudid Injection -) 1 mg IVPB Q3H PRN PRN Reason: PAIN Last Admin: 10/25/16 14:51 Dose: 1 mg Ampicillin Sodium/Sulbactam (Sodium 3 gm/ Sodium Chloride) 100 mls @ 200 mls/ hr IVPB Q8H-IV [facility] Last Admin: 10/25/16 17:18 Dose: 200 mls/hr Lactated Ringer's (Lactated Ringers Solution) 1,000 mls @ 75 mls/hr IV ASDIR [facility] Last Admin: 10/25/16 15:25 Dose: Not Given Lactobacillus Acidophilus (Bacid -) 1 tab PO BID [facility] Last Admin: 10/25/16 14:17 Dose: Not Given Levothyroxine Sodium (Synthroid -) 75 mcg PO DAILY@0700 [facility] Last Admin: 10/25/16 06:41 Dose: 75 mcg Losartan Potassium (Cozaar -) 25 mg PO DAILY [facility] Last Admin: 10/25/16 14:17 Dose: Not Given Prednisone (Deltasone -) 5 mg PO DAILY [facility] Last Admin: 10/25/16 14:17 Dose: Not Given Silver Sulfadiazine (Silvadene -) 1 applic TP BID [facility] Last Admin: 10/25/16 14:18 Dose: Not Given - Objective Vital Signs: Vital Signs Temperature 97.4 F L 10/25/16 15:44 Pulse Rate 58 L 10/25/16 15:44 Respiratory Rate 20 10/25/16 15:44 Blood Pressure 112/59 10/25/16 15:44 O2 Sat by Pulse Oximetry (%) 100 10/25/16 13:30 Constitutional: Yes: No Distress HENT: Yes: Atraumatic Neck: Yes: Supple Cardiovascular: Yes: Regular Rate and Rhythm Respiratory: Yes: CTA Bilaterally Gastrointestinal: Yes: Normal Bowel Sounds Extremities: Yes: Other (LLEX IN DRESSING) Neurological: Yes: Alert, Oriented Labs: CBC, BMP 10/24/16 05:35 10/24/16 05:35 INR, PTT INR 0.99 (0.82-1.09) 10/23/16 14:04 Problem List - Problems (1) Cellulitis Assessment/Plan: S/P DEBRIDEMENT..LLEX iv abx id consult wound care Code(s): L03.90 - CELLULITIS, UNSPECIFIED Qualifiers: Site of cellulitis: extremity Site of cellulitis of extremity: lower extremity Laterality: left Qualified Code(s): L03.116 - Cellulitis of left lower limb (2) Hypothyroid Code(s): E03.9 - HYPOTHYROIDISM, UNSPECIFIED Qualifiers:
[2016-10-25] MEDS ORDERED: DOCUSATE SODIUM 100 MG CAPSULE (FP) PO PRN (20:21)
[2016-10-25] MEDS: oxyCODONE HCL 5 MG TABLET PO PRN (21:59)
[2016-10-26] MEDS: AMPICILLIN NA/SULBACTAM NA 3 GM in SODIUM CHLORIDE 100 ML IVPB SCH ×3 (01:21→17:10)
[2016-10-26] MEDS: LACTATED RINGERS SOLUTION 1,000 ML IV SCH (06:24)
[2016-10-26] MEDS: LEVOTHYROXINE NA 75 MCG TABLET (FP) PO SCH (06:24)
--- NOTE | 2016-10-26 08:33 | OP ---
DATE OF OPERATION: DATE OF DICTATION: 10/25/2016 PREOPERATIVE DIAGNOSIS: Traumatic open wound with skin necrosis, left lower leg. POSTOPERATIVE DIAGNOSIS: Traumatic open wound with skin necrosis, left lower leg. PROCEDURE DONE: 1. Excisional debridement, skin, subcutaneous tissue, fat. 2. Wound care. 3. Curettage. SURGEON: Mike Roman MD ANESTHESIA: Local with IV sedation, 0.5% lidocaine with Marcaine half and half. PROCEDURE: Patient was brought to the operating room. She was identified. Procedure was agreed upon. At this time, she was given IV sedation. Prior to prepping the skin, the wound was injected with lidocaine solution with Marcaine, a total of 16 mL was injected. At this time, skin was prepped with Betadine and draped in the standard manner. Evaluation of the wound was complete necrosis of the skin and subcutaneous tissue. After wound was anesthetized, using a sharp sterile curet a large amount of fat was curetted out, including the subcutaneous fat and tissue. Wound extended to the periosteum of the tibial bone for about 2 x 2 cm. Measurements of the entire wound were 10 x 6.8 x 0.4 cm. Following curettage, using a 10 scalpel blade rest of the tissue was excised sharply. Wound was then irrigated with normal saline, large amounts of water. A dressing was applied consisting of Xeroform, Betadine ointment, 4 x 4's, Juan Jose, and Coban. Patient tolerated the procedure well and was sent to recovery room in satisfactory condition. PLAN OF CARE: Continue IV antibiotics. DURATION: Discharge once reviewed by Infectious Disease and wound cultures are available. FOLLOWUP: In Wound Clinic followed by possible skin grafting in the near future. MIKE ROMAN M.D. [id number]
[2016-10-26] MEDS ORDERED: ESCITALOPRAM OXALATE 10 MG TABLET (FP) ONE (09:40)
[2016-10-26] MEDS: SILVER SULFADIAZINE 1% TOP CREAM 400 GM JAR TP SCH ×2 (10:48→21:12)
[2016-10-26] MEDS: HEPARIN NA (PORCINE) 5,000 UNITS/ML 1ML VIAL SQ SCH ×2 (10:48→21:09)
[2016-10-26] MEDS: LACTOBACILLUS ACIDOPHILUS 1 EACH TAB (FP) PO SCH ×2 (10:49→21:09)
[2016-10-26] MEDS: predniSONE 5 MG TABLET (UD) PO SCH (10:49)
[2016-10-26] MEDS: ESCITALOPRAM OXALATE 20 MG TABLET (FP) PO SCH (10:49)
[2016-10-26] MEDS: LOSARTAN POTASSIUM 25 MG TABLET PO SCH (10:49)
--- NOTE | 2016-10-26 13:27 | PN ---
Progress Note, Physician Chief Complaint: Infectious Disease History of Present Illness: Pt feels well s/p Left leg wound debridement Denies having any specific complaints - Current Medication List Current Medications: Active Medications Acetaminophen (Tylenol -) 650 mg PO Q6H PRN PRN Reason: FEVER OR PAIN Last Admin: 10/25/16 06:44 Dose: 650 mg Docusate Sodium (Colace -) 100 mg PO BID PRN PRN Reason: CONSTIPATION Escitalopram Oxalate (Lexapro -) 20 mg PO DAILY [facility] Last Admin: 10/26/16 10:49 Dose: 20 mg Fentanyl (Sublimaze Injection -) 25 mcg IVPUSH [id number] PRN PRN Reason: PAIN Stop: 10/28/16 12:50 Heparin Sodium (Porcine) (Heparin -) 5,000 unit SQ BID [facility] Last Admin: 10/26/16 10:48 Dose: 5,000 unit Hydromorphone HCl (Dilaudid Injection -) 1 mg IVPB Q3H PRN PRN Reason: PAIN Last Admin: 10/25/16 20:11 Dose: 1 mg Ampicillin Sodium/Sulbactam (Sodium 3 gm/ Sodium Chloride) 100 mls @ 200 mls/ hr IVPB Q8H-IV [facility] Last Admin: 10/26/16 10:45 Dose: 200 mls/hr Lactated Ringer's (Lactated Ringers Solution) 1,000 mls @ 75 mls/hr IV ASDIR [facility] Last Admin: 10/26/16 06:24 Dose: 75 mls/hr Lactobacillus Acidophilus (Bacid -) 1 tab PO BID [facility] Last Admin: 10/26/16 10:49 Dose: 1 tab Levothyroxine Sodium (Synthroid -) 75 mcg PO DAILY@0700 [facility] Last Admin: 10/26/16 06:24 Dose: 75 mcg Losartan Potassium (Cozaar -) 25 mg PO DAILY [facility] Last Admin: 10/26/16 10:49 Dose: 25 mg Oxycodone HCl (Roxicodone -) 5 mg PO Q6H PRN PRN Reason: PAIN Last Admin: 10/25/16 21:59 Dose: 5 mg Prednisone (Deltasone -) 5 mg PO DAILY [facility] Last Admin: 10/26/16 10:49 Dose: 5 mg Silver Sulfadiazine (Silvadene -) 1 applic TP BID [facility] Last Admin: 10/26/16 10:48 Dose: Not Given - Objective Vital Signs: Vital Signs Temperature 98.2 F 10/26/16 06:00 Pulse Rate 66 10/26/16 06:00 Respiratory Rate 20 10/26/16 06:00 Blood Pressure 144/75 10/26/16 06:00 O2 Sat by Pulse Oximetry (%) 100 10/25/16 13:30 Constitutional: Yes: No Distress Cardiovascular: Yes: Regular Rate and Rhythm Respiratory: Yes: Regular Gastrointestinal: Yes: Normal Bowel Sounds, Soft Genitourinary: Yes: WNL Integumentary: Yes: Other (Left leg dressed s/p debridement, decreased tenderness) Neurological: Yes: Alert Labs: CBC, BMP 10/24/16 05:35 10/24/16 05:35 INR, PTT INR 0.99 (0.82-1.09) 10/23/16 14:04 Microbiology 10/25/16 13:05 Wound Culture - Preliminary Leg - Left Lower NO GROWTH OBTAINED AFTER 24 HOURS INCUBATION, REINCUBATED. 10/23/16 14:04 Blood Culture - Preliminary Blood - Peripheral Venous NO GROWTH OBTAINED AFTER 48 HOURS, INCUBATION TO CONTINUE FOR 3 DAYS. 10/23/16 14:04 Blood Culture - Preliminary Blood - Peripheral Venous NO GROWTH OBTAINED AFTER 48 HOURS, INCUBATION TO CONTINUE FOR 3 DAYS. Problem List - Problems (1) Cellulitis Code(s): L03.90 - CELLULITIS, UNSPECIFIED Qualifiers: Site of cellulitis: extremity Site of cellulitis of extremity: lower extremity Laterality: left Qualified Code(s): L03.116 - Cellulitis of left lower limb Assessment/Plan Left leg infected wound cellulitis - pt doing well, continue current antibiotics - f/u culture results - if continues to improve plan change to PO antibiotics - wound care as per surgery
--- NOTE | 2016-10-26 16:04 | PN ---
Progress Note, Physician History of Present Illness: DOING WELL - Current Medication List Current Medications: Active Medications Acetaminophen (Tylenol -) 650 mg PO Q6H PRN PRN Reason: FEVER OR PAIN Last Admin: 10/25/16 06:44 Dose: 650 mg Docusate Sodium (Colace -) 100 mg PO BID PRN PRN Reason: CONSTIPATION Escitalopram Oxalate (Lexapro -) 20 mg PO DAILY [facility] Last Admin: 10/26/16 10:49 Dose: 20 mg Fentanyl (Sublimaze Injection -) 25 mcg IVPUSH [id number] PRN PRN Reason: PAIN Stop: 10/28/16 12:50 Heparin Sodium (Porcine) (Heparin -) 5,000 unit SQ BID [facility] Last Admin: 10/26/16 10:48 Dose: 5,000 unit Hydromorphone HCl (Dilaudid Injection -) 1 mg IVPB Q3H PRN PRN Reason: PAIN Last Admin: 10/25/16 20:11 Dose: 1 mg Ampicillin Sodium/Sulbactam (Sodium 3 gm/ Sodium Chloride) 100 mls @ 200 mls/ hr IVPB Q8H-IV [facility] Last Admin: 10/26/16 10:45 Dose: 200 mls/hr Lactated Ringer's (Lactated Ringers Solution) 1,000 mls @ 75 mls/hr IV ASDIR [facility] Last Admin: 10/26/16 06:24 Dose: 75 mls/hr Lactobacillus Acidophilus (Bacid -) 1 tab PO BID [facility] Last Admin: 10/26/16 10:49 Dose: 1 tab Levothyroxine Sodium (Synthroid -) 75 mcg PO DAILY@0700 [facility] Last Admin: 10/26/16 06:24 Dose: 75 mcg Losartan Potassium (Cozaar -) 25 mg PO DAILY [facility] Last Admin: 10/26/16 10:49 Dose: 25 mg Oxycodone HCl (Roxicodone -) 5 mg PO Q6H PRN PRN Reason: PAIN Last Admin: 10/25/16 21:59 Dose: 5 mg Prednisone (Deltasone -) 5 mg PO DAILY [facility] Last Admin: 10/26/16 10:49 Dose: 5 mg Silver Sulfadiazine (Silvadene -) 1 applic TP BID [facility] Last Admin: 10/26/16 10:48 Dose: Not Given - Objective Vital Signs: Vital Signs Temperature 98.3 F 10/26/16 14:26 Pulse Rate 70 10/26/16 14:26 Respiratory Rate 20 10/26/16 10:00 Blood Pressure 155/85 10/26/16 14:26 O2 Sat by Pulse Oximetry (%) 100 10/25/16 13:30 Constitutional: Yes: No Distress HENT: Yes: Atraumatic Neck: Yes: Supple Cardiovascular: Yes: Regular Rate and Rhythm Respiratory: Yes: CTA Bilaterally Extremities: Yes: Other (llex in dressing) Neurological: Yes: Alert, Oriented Labs: CBC, BMP 10/24/16 05:35 10/24/16 05:35 INR, PTT INR 0.99 (0.82-1.09) 10/23/16 14:04 Problem List - Problems (1) Cellulitis Assessment/Plan: S/P DEBRIDEMENT..LLEX iv abx... id consult wound care Code(s): L03.90 - CELLULITIS, UNSPECIFIED Qualifiers: Site of cellulitis: extremity Site of cellulitis of extremity: lower extremity Laterality: left Qualified Code(s): L03.116 - Cellulitis of left lower limb (2) Hypothyroid Assessment/Plan: on meds Code(s): E03.9 - HYPOTHYROIDISM, UNSPECIFIED Qualifiers:
[2016-10-26] MEDS: oxyCODONE HCL 5 MG TABLET PO PRN (21:09)
[2016-10-27] MEDS: LACTATED RINGERS SOLUTION 1,000 ML IV SCH ×3 (00:50→14:24)
[2016-10-27] MEDS ORDERED: PT OWN MED DRAWER 7, Y5N ONE ×3 (02:30→17:13)
[2016-10-27] MEDS: AMPICILLIN NA/SULBACTAM NA 3 GM in SODIUM CHLORIDE 100 ML IVPB SCH ×3 (02:38→17:20)
[2016-10-27] MEDS: LEVOTHYROXINE NA 75 MCG TABLET (FP) PO SCH (06:01)
[2016-10-27] MEDS ORDERED: ESCITALOPRAM OXALATE 10 MG TABLET (FP) ONE (09:02)
[2016-10-27] MEDS: ESCITALOPRAM OXALATE 20 MG TABLET (FP) PO SCH (09:08)
[2016-10-27] MEDS: HEPARIN NA (PORCINE) 5,000 UNITS/ML 1ML VIAL SQ SCH ×2 (09:09→22:02)
[2016-10-27] MEDS: LACTOBACILLUS ACIDOPHILUS 1 EACH TAB (FP) PO SCH ×2 (09:09→22:02)
[2016-10-27] MEDS: LOSARTAN POTASSIUM 25 MG TABLET PO SCH (09:09)
[2016-10-27] MEDS: predniSONE 5 MG TABLET (UD) PO SCH (09:09)
[2016-10-27] MEDS: oxyCODONE HCL 5 MG TABLET PO PRN ×3 (09:10→23:22)
[2016-10-27] MEDS: SILVER SULFADIAZINE 1% TOP CREAM 400 GM JAR TP SCH ×2 (09:10→22:04)
--- NOTE | 2016-10-27 11:28 | PN ---
Progress Note (short form) - Note Progress Note: Follow Up Post Op day 2 Awake alert in better spirits No c/o pain Was OOB and ambulated few steps Dressing changed: Swelling has decreased significantly, still at ankle level 3+ , no calf tenderness wound culture: No growth Dr Burgos to revaluate in AM Plan : 1. Possible discharge in AM 2. Wound care needed twice a week as follows Gently irrigate with NSS, Apply Zeroform gauze, cover with betadine ointment twice a week Follow Up i wound clinic in 12 days on Friday, will plan split skin graft in two weeks All questions answered Dressing changed Total time 20 minutes
--- NOTE | 2016-10-27 17:37 | PN ---
Progress Note, Physician History of Present Illness: Pt states she feels well Got out of bed today Denies any fever/chills No specific complaints - Current Medication List Current Medications: Active Medications Acetaminophen (Tylenol -) 650 mg PO Q6H PRN PRN Reason: FEVER OR PAIN Last Admin: 10/25/16 06:44 Dose: 650 mg Docusate Sodium (Colace -) 100 mg PO BID PRN PRN Reason: CONSTIPATION Escitalopram Oxalate (Lexapro -) 20 mg PO DAILY [facility] Last Admin: 10/27/16 09:08 Dose: 20 mg Fentanyl (Sublimaze Injection -) 25 mcg IVPUSH [id number] PRN PRN Reason: PAIN Stop: 10/28/16 12:50 Heparin Sodium (Porcine) (Heparin -) 5,000 unit SQ BID [facility] Last Admin: 10/27/16 09:09 Dose: 5,000 unit Ampicillin Sodium/Sulbactam (Sodium 3 gm/ Sodium Chloride) 100 mls @ 200 mls/ hr IVPB Q8H-IV [facility] Last Admin: 10/27/16 17:20 Dose: 200 mls/hr Lactated Ringer's (Lactated Ringers Solution) 1,000 mls @ 75 mls/hr IV ASDIR [facility] Last Admin: 10/27/16 14:24 Dose: 75 mls/hr Lactobacillus Acidophilus (Bacid -) 1 tab PO BID [facility] Last Admin: 10/27/16 09:09 Dose: 1 tab Levothyroxine Sodium (Synthroid -) 75 mcg PO DAILY@0700 [facility] Last Admin: 10/27/16 06:01 Dose: 75 mcg Losartan Potassium (Cozaar -) 25 mg PO DAILY [facility] Last Admin: 10/27/16 09:09 Dose: 25 mg Oxycodone HCl (Roxicodone -) 5 mg PO Q6H PRN PRN Reason: PAIN Last Admin: 10/27/16 17:20 Dose: 5 mg Prednisone (Deltasone -) 5 mg PO DAILY [facility] Last Admin: 10/27/16 09:09 Dose: 5 mg Silver Sulfadiazine (Silvadene -) 1 applic TP BID [facility] Last Admin: 10/27/16 09:10 Dose: Not Given - Objective Vital Signs: Vital Signs Temperature 97.9 F 10/27/16 15:15 Pulse Rate 78 08/06/17 15:15 Respiratory Rate 18 10/27/16 08:00 Blood Pressure 148/79 10/27/16 15:15 O2 Sat by Pulse Oximetry (%) 97 10/27/16 09:00 Constitutional: Yes: Well Nourished Cardiovascular: Yes: WNL Respiratory: Yes: WNL Gastrointestinal: Yes: WNL Extremities: Yes: Other (LE edema improving) Wound/Incision: Yes: Dressing Dry and Intact (LLE wound s/p debridement) Labs: CBC, BMP 10/24/16 05:35 10/24/16 05:35 INR, PTT INR 0.99 (0.82-1.09) 10/23/16 14:04 Microbiology 10/25/16 13:05 Gram Stain - Final Leg - Left Lower Wound Culture - Final NO AEROBIC OR ANAEROBIC GROWTH OBTAINED. 10/23/16 14:04 Blood Culture - Preliminary Blood - Peripheral Venous NO GROWTH OBTAINED AFTER 96 HOURS, INCUBATION TO CONTINUE FOR 1 DAYS. 10/23/16 14:04 Blood Culture - Preliminary Blood - Peripheral Venous NO GROWTH OBTAINED AFTER 96 HOURS, INCUBATION TO CONTINUE FOR 1 DAYS. Problem List - Problems (1) Cellulitis Code(s): L03.90 - CELLULITIS, UNSPECIFIED Qualifiers: Site of cellulitis: extremity Site of cellulitis of extremity: lower extremity Laterality: left Qualified Code(s): L03.116 - Cellulitis of left lower limb Assessment/Plan LLE cellulitis/ wound debridement - pt stable - continue Unasyn until tomorrow, if discharged plan switch to po antibiotics
--- NOTE | 2016-10-27 21:16 | PN ---
Progress Note, Physician History of Present Illness: DOING WELL - Current Medication List Current Medications: Active Medications Acetaminophen (Tylenol -) 650 mg PO Q6H PRN PRN Reason: FEVER OR PAIN Last Admin: 10/25/16 06:44 Dose: 650 mg Docusate Sodium (Colace -) 100 mg PO BID PRN PRN Reason: CONSTIPATION Escitalopram Oxalate (Lexapro -) 20 mg PO DAILY [facility] Last Admin: 10/27/16 09:08 Dose: 20 mg Fentanyl (Sublimaze Injection -) 25 mcg IVPUSH [id number] PRN PRN Reason: PAIN Stop: 10/28/16 12:50 Heparin Sodium (Porcine) (Heparin -) 5,000 unit SQ BID [facility] Last Admin: 10/27/16 09:09 Dose: 5,000 unit Ampicillin Sodium/Sulbactam (Sodium 3 gm/ Sodium Chloride) 100 mls @ 200 mls/ hr IVPB Q8H-IV [facility] Last Admin: 10/27/16 17:20 Dose: 200 mls/hr Lactated Ringer's (Lactated Ringers Solution) 1,000 mls @ 75 mls/hr IV ASDIR [facility] Last Admin: 10/27/16 14:24 Dose: 75 mls/hr Lactobacillus Acidophilus (Bacid -) 1 tab PO BID [facility] Last Admin: 10/27/16 09:09 Dose: 1 tab Levothyroxine Sodium (Synthroid -) 75 mcg PO DAILY@0700 [facility] Last Admin: 10/27/16 06:01 Dose: 75 mcg Losartan Potassium (Cozaar -) 25 mg PO DAILY [facility] Last Admin: 10/27/16 09:09 Dose: 25 mg Oxycodone HCl (Roxicodone -) 5 mg PO Q6H PRN PRN Reason: PAIN Last Admin: 10/27/16 17:20 Dose: 5 mg Prednisone (Deltasone -) 5 mg PO DAILY [facility] Last Admin: 10/27/16 09:09 Dose: 5 mg Silver Sulfadiazine (Silvadene -) 1 applic TP BID [facility] Last Admin: 10/27/16 09:10 Dose: Not Given - Objective Vital Signs: Vital Signs Temperature 97.9 F 10/27/16 15:15 Pulse Rate 78 10/27/16 15:15 Respiratory Rate 18 10/27/16 08:00 Blood Pressure 148/79 10/27/16 15:15 O2 Sat by Pulse Oximetry (%) 96 10/27/16 21:00 Constitutional: Yes: No Distress HENT: Yes: Atraumatic Neck: Yes: Supple Cardiovascular: Yes: Regular Rate and Rhythm Respiratory: Yes: CTA Bilaterally Gastrointestinal: Yes: Normal Bowel Sounds Extremities: Yes: WNL, Other (woundllex cellulits / improving) Edema: No Peripheral Pulses WNL: Yes Neurological: Yes: Alert, Oriented Labs: CBC, BMP 10/24/16 05:35 10/24/16 05:35 INR, PTT INR 0.99 (0.82-1.09) 10/23/16 14:04 Problem List - Problems (1) Cellulitis Assessment/Plan: S/P DEBRIDEMENT..LLEX po abx id consult wound care dc if cleared by dr santana Code(s): L03.90 - CELLULITIS, UNSPECIFIED Qualifiers: Site of cellulitis: extremity Site of cellulitis of extremity: lower extremity Laterality: left Qualified Code(s): L03.116 - Cellulitis of left lower limb (2) Hypothyroid Assessment/Plan: on meds Code(s): E03.9 - HYPOTHYROIDISM, UNSPECIFIED Qualifiers:
[2016-10-28] MEDS: AMPICILLIN NA/SULBACTAM NA 3 GM in SODIUM CHLORIDE 100 ML IVPB SCH ×2 (01:29→10:44)
[2016-10-28] MEDS: LACTATED RINGERS SOLUTION 1,000 ML IV SCH (01:34)
[2016-10-28] MEDS: oxyCODONE HCL 5 MG TABLET PO PRN (06:43)
[2016-10-28] MEDS: LEVOTHYROXINE NA 75 MCG TABLET (FP) PO SCH (06:43)
[2016-10-28 08:41] VITALS: BP 187/81; PULSE 56; TEMP 97.5
[2016-10-28] MEDS ORDERED: ESCITALOPRAM OXALATE 10 MG TABLET (FP) ONE ×2 (10:41→10:42)
[2016-10-28] MEDS: LACTOBACILLUS ACIDOPHILUS 1 EACH TAB (FP) PO SCH (10:43)
[2016-10-28] MEDS: LOSARTAN POTASSIUM 25 MG TABLET PO SCH (10:43)
[2016-10-28] MEDS: predniSONE 5 MG TABLET (UD) PO SCH (10:43)
[2016-10-28] MEDS: ESCITALOPRAM OXALATE 20 MG TABLET (FP) PO SCH (10:44)
[2016-10-28] MEDS: SILVER SULFADIAZINE 1% TOP CREAM 400 GM JAR TP SCH (10:44)
[2016-10-28] MEDS: HEPARIN NA (PORCINE) 5,000 UNITS/ML 1ML VIAL SQ SCH (10:44)
--- NOTE | 2016-10-28 20:15 | DS ---
Physical Examination Vital Signs: Vital Signs Temperature 97.5 F L 10/28/16 08:40 Pulse Rate 56 L 10/28/16 08:40 Respiratory Rate 18 10/28/16 09:00 Blood Pressure 187/81 10/28/16 08:40 O2 Sat by Pulse Oximetry (%) 96 10/28/16 09:00 Labs: CBC, BMP 10/24/16 05:35 10/24/16 05:35 Discharge Summary Reason For Visit: CELLULITIS Condition: Stable - Instructions Referrals: Parminder Erazo MD [Primary Care Provider] - Disposition: [facility]/HOME HEALTH CARE - Home Medications Comprehensive Discharge Medication List: Ambulatory Orders Amoxicillin/Potassium Clav [Augmentin 875-125 Tablet] 1 each PO BID #14 tablet 10/27/16 Escitalopram Oxalate [Lexapro -] 20 mg PO DAILY tablet 10/27/16 Losartan Potassium [Cozaar -] 25 mg PO DAILY tablet 10/27/16 Prednisone [Deltasone -] 5 mg PO DAILY tablet 10/27/16 Silver Sulfadiazine 1% Top Cr [Silvadene -] 1 applic TP BID jar 10/27/16 me home
--- NOTE | 2016-10-29 16:43 | PATH ---
Surgical Pathology Report Patient Name: CHAITANYA BOYD Med. Rec. #: [id number] /Age/Gender: 1925 (Age: 89) / F Account: [id number] Location: [address] [place] [address]/[facility] Taken: 10/25/2016 Received: 10/25/2016 Reported: 10/29/2016 Physicians: Perez Bowman M.D. Specimen(s) Received DEBRIDED TISSUE LEFT LEG Clinical History Traumatic open wound with skin necrosis of left leg Final Diagnosis SKIN AND SOFT TISSUE, LEFT LEG, DEBRIDEMENT: GANGRENOUS NECROSIS. Electronically Signed Brayden Chan M.D. Gross Description Received in formalin labeled "left leg tissue debridement," is a 6.5 x 3.5 x 1.0 cm aggregate of garza green, necrotic skin and soft tissue fragments. A sales representative canvas products portion is submitted in one cassette. 10/28/201610/28/2016
== END 2016-10-28 11:54 | disposition home health service (06) | DRG 570 ==
LOC: JER 12:44 → JERBED 16:13 → J4W 21:03 → J6S 10-24 17:44
PROVIDERS: ADMIT Internal Medicine; ATTEND Internal Medicine
PROC: 0JBP0ZZ Excision of Left Lower Leg Subcutaneous Tissue and Fascia, Open Approach (ICD-10-PCS; principal; 2016-10-25 13:30)
DX: S81.802A Unspecified open wound, left lower leg, initial encounter (principal); K75.0 Abscess of liver; L03.116 Cellulitis of left lower limb; Z68.43 Body mass index [BMI] 50.0-59.9, adult; I48.91 Unspecified atrial fibrillation; I10 Essential (primary) hypertension; E78.5 Hyperlipidemia, unspecified; K21.9 Gastro-esophageal reflux disease without esophagitis; K57.90 Diverticulosis of intestine, part unspecified, without perforation or abscess without bleeding; E03.9 Hypothyroidism, unspecified; M35.3 Polymyalgia rheumatica; F32.9 Major depressive disorder, single episode, unspecified; M19.90 Unspecified osteoarthritis, unspecified site; M85.88 Other specified disorders of bone density and structure, other site; K43.9 Ventral hernia without obstruction or gangrene; I70.0 Atherosclerosis of aorta; E66.8 Other obesity; Z71.3 Dietary counseling and surveillance; W18.39XA Other fall on same level, initial encounter; Y93.89 Activity, other specified; Y92.098 Other place in other non-institutional residence as the place of occurrence of the external cause; Y99.8 Other external cause status
CPT/HCPCS: 36415; 71010-TC; 73590-TC-LT; 73610-TC-LT; 73630-TC-LT; 80053; 81003; 81015; 85025; 85610; 87040; 87070; 87205; 88304-TC; 93005; 93010; 93306-TC; 94760; 97116-GP; 97161-GP; 99283-25; G0463-25; J1644

== ENCOUNTER 2016-11-19 07:44 | Inpatient (IN) | payer OTHER, MEDICARE ==
[2016-11-19 08:15] VITALS: BMI 24.7
[2016-11-19] MEDS ORDERED: PROPOFOL 20 ML ONE ×3 (08:27)
[2016-11-19] MEDS ORDERED: MINERAL OIL 25 ML OIL ONE (08:59)
[2016-11-19] MEDS ORDERED: BUPIVACAINE HCL/PF 0.25% (2.5MG/ML) 10 ML VIAL ONE (09:11)
[2016-11-19] MEDS ORDERED: VITAMINS A AND D TOPICAL OINTMENT 60 GM TUBE TP ONE (09:30)
[2016-11-19] MEDS ORDERED: ceFAZolin SODIUM 1 GM VIAL IVPB ONE (09:44)
[2016-11-19] MEDS ORDERED: LIDOCAINE 1%/EPI 1:100000 (20 ML MULTI DOSE VIAL) IJ ONE (10:22)
[2016-11-19] MEDS ORDERED: BUPIVACAINE HCL/PF 0.5% (5MG/ML) 10 ML VIAL IJ ONE (10:23)
[2016-11-19] MEDS ORDERED: MIDAZOLAM HCL 2 MG/2 ML SINGLE DOSE VIAL ONE (10:36)
[2016-11-19] MEDS ORDERED: ONDANSETRON 4 MG/2 ML VIAL IVPUSH PRN (11:06)
[2016-11-19] MEDS ORDERED: predniSONE 1 MG TABLET (FP) PO ONE (11:46)
[2016-11-19] MEDS ORDERED: ACETAMINOPHEN 325 MG TABLET (FP) PO PRN (14:12)
[2016-11-19] MEDS ORDERED: oxyCODONE HCL 5 MG TABLET PO PRN (14:12)
--- NOTE | 2016-11-19 16:02 | OP ---
DATE OF OPERATION: 11/19/2016 PREOPERATIVE DIAGNOSIS: Open wound, left lower extremity, posttraumatic injury post fall. POSTOPERATIVE DIAGNOSIS: Open wound, left lower extremity, posttraumatic injury post fall, with extensive loss of skin on the lateral aspect of the left lower leg. PROCEDURE DONE: 1. Excisional debridement using 10 scalpel blade of left lower leg wound. 2. Split-thickness skin graft, 1/8-inch, from the left thigh. 3. Cast. SURGEON: Perez Bowman MD ANESTHESIOLOGIST: Dr. Flores. TYPE OF ANESTHESIA: Local with IV sedation. 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 This time, she has lost a significant amount of skin on the lateral aspect. She is being admitted for excisional debridement and skin grafting with elevation in hospital. DESCRIPTION OF PROCEDURE: Patient was brought to the operating room. She was transferred to the operating table. At this time, a timeout procedure was carried out. Once agreed site and the patient, patient was given IV sedation by Dr. Flores. Local anesthetic of 0.5% lidocaine with epinephrine with 0.25% Marcaine in a combination of 7:4 was done. A total of 20 mL was injected in the subcutaneous tissue in the left lateral thigh and left lower leg wound. The first priority was a clean the wound, which was the donor site, followed by the recipient site. Skin was then prepped with Betadine and draped in standard aseptic manner. TAKING OF THE GRAFT: A Pedro dermatome was used. It was selected at 1/8th of an inch, 2-inch width. The skin was prepped with mineral oil and a thin skin graft was taken. Patient's age and skin is also very fragile. It was kept in a saline sponge. The donor area was dressed with Xeroform and vitamin E and D (patient is on prednisone). Excisional debridement was carried out using a 10 scalpel blade. The entire periphery was excised, avoiding any bacterial contamination. Excisional debridement was done over the fascia as well as the periosteum of the tibia. Defect measured 7 x 5 cm. Post excisional debridement, it was 7.5 x 5.5 cm. The wound was then irrigated with normal saline solution. GRAFTING: The skin graft was then bi-crusted using a 10 scalpel blade. Multiple slits were made for drainage of blood. It was then applied onto the recipient site, making sure the dermal side was onto the recipient bed. The graft was then surgically immobilized using 5-0 chromic. Interrupted sutures were applied, followed by application of a 4 x 4 done in Dermabond to minimize any dislodgement of the thin graft, followed by application of Xeroform, bacitracin and A&D ointment. Dermabond was at the periphery, followed by dressing consisting of cotton, 4 x 4's, and a cast was applied from the toes to the popliteal fossa. In between the toes, 4 x 4's were applied to prevent any skin maceration. Prior to starting the procedure, the patient had been given a gram of Ancef intravenously. She was also given IV sedation. At the end of the procedure, the patient was sent to the recovery room in a satisfactory condition. The total suture and instrument count was correct. DECISION: The patient needs to be on complete bedrest without dangling the leg in order to avoid any edema and loss of skin graft. The patient is elderly with very fragile thin skin, significant joint deformities of the hands and feet, and is unable to stand and ambulate without assistance. The patient will require elevation until the leg graft is well adherent before an Unna boot can be used and she can be sent to a SNF. She will be under Dr. Rod's care for evaluation and monitoring of her medical condition. The size of the total graft was 100 sq cm. Kei [id number]
[2016-11-19] MEDS ORDERED: CEFAZOLIN 1 GM/D5W 50 ML IVPB SCH (18:00)
[2016-11-19] MEDS ORDERED: ceFAZolin SODIUM 1 GM VIAL ONE (19:40)
[2016-11-19] MEDS: LACTATED RINGERS SOLUTION 1,000 ML IV SCH (20:16)
[2016-11-19] MEDS: HEPARIN NA (PORCINE) 5,000 UNITS/ML 1ML VIAL SQ SCH ×2 (20:16→21:30)
[2016-11-19] MEDS: oxyCODONE HCL 5 MG TABLET PO PRN (20:33)
[2016-11-20] MEDS: CEFAZOLIN 1 GM in DEXTROSE 5%-WATER - 50 ML IVPB SCH ×3 (01:25→19:03)
[2016-11-20] MEDS: LEVOTHYROXINE NA 75 MCG TABLET (FP) PO SCH (06:22)
[2016-11-20] MEDS: HEPARIN NA (PORCINE) 5,000 UNITS/ML 1ML VIAL SQ SCH ×3 (06:22→22:08)
[2016-11-20] MEDS ORDERED: predniSONE 1 MG TABLET (FP) PO SCH (10:00)
[2016-11-20] MEDS ORDERED: ESCITALOPRAM OXALATE 10 MG TABLET (FP) ONE (10:23)
[2016-11-20] MEDS: ESCITALOPRAM OXALATE 20 MG TABLET (FP) PO SCH (10:27)
[2016-11-20] MEDS: PANTOPRAZOLE 20 MG TABLET (FP) PO SCH (10:27)
[2016-11-20] MEDS: LOSARTAN POTASSIUM 25 MG TABLET PO SCH (10:34)
[2016-11-20] MEDS: LACTATED RINGERS SOLUTION 1,000 ML IV SCH (14:39)
--- NOTE | 2016-11-20 15:22 | PN ---
Progress Note (short form) - Note Progress Note: Post Op day 1 Awake alert comfortable No leg cramps, no chest pains, no respiratory difficulty Left leg /foot circulation intact Cast in place Donor area dry and intact Patient mentions Skin tear left elbow post surgery , wound evaluated : covered with dressing, minimal bleeding, no erythema, covered with scab I spoke with Nurse In Charge aMrcela, to look into the reason for skin tear and take steps to prevent any other injuries Plan : Dressing change in AM, if graft is satisfactory and well adherent will apply Liz boot, if graft is loose and drainage will consider VAC Possible discharge to SNF on Friday , Rehab
[2016-11-20] MEDS ORDERED: PT OWN MED DRAWER 7, Y5N ONE (18:58)
--- NOTE | 2016-11-20 19:15 | HP ---
Admitting History and Physical - Primary Care Physician PCP: Reshma Rod - Admission History of Present Illness: 89 y/o female, who was recently dc from hospital, came for skin graft left garcia. last admission , she was admitted after having a fall, big skin tear left garcia and cellulitis - Past Medical History Cardiovascular: Yes: AFIB, HTN, Hyperlipdemia Gastrointestinal: Yes: Diverticulosis, GERD Infectious Disease: Yes: Other (LIVER ABSCESS) Psych: Yes: Depression Endocrine: Yes: Hypothyroidism - Past Surgical History Past Surgical History: Yes: Hysterectomy - Advance Directives Advance Directives: Yes: Living Will, Health Care Proxy - Smoking History Smoking history: Never smoked Have you smoked in the past 12 months: No - Alcohol/Substance Use Hx Alcohol Use: No - Social History ADL: Independent History of Recent Travel: No Home Medications - Allergies Allergies/Adverse Reactions: Allergies Allergy/AdvReac Type Severity Reaction Status Date / Time Sulfa (Sulfonamide Allergy Intermediate Hives Verified 10/23/16 12:49 Antibiotics) [Sulfa(Sulfonamide Antibiotics)] chickpeas Allergy Intermediate Swelling Uncoded 10/23/16 12:49 chocolate Allergy Intermediate Swelling Uncoded 10/23/16 12:49 ham Allergy Intermediate Swelling Uncoded 10/23/16 12:49 tuna Allergy Intermediate Swelling Uncoded 10/23/16 12:49 black beans Allergy Uncoded 10/23/16 12:49 - Home Medications Home Medications: Ambulatory Orders Escitalopram Oxalate [Lexapro -] 20 mg PO DAILY tablet 10/27/16 Losartan Potassium [Cozaar -] 25 mg PO DAILY tablet 10/27/16 Oxycodone HCl [Roxicodone -] 5 mg PO Q6H PRN #14 tablet MDD 2 10/29/16 Levothyroxine [Synthroid -] 1 tab PO DAILY 11/18/16 Omeprazole 20 mg PO DAILY 11/18/16 Prednisone [Deltasone -] 3 mg PO DAILY 11/18/16 Review of Systems - Review of Systems Constitutional: reports: No Symptoms Eyes: reports: No Symptoms HENT: reports: No Symptoms Neck: reports: No Symptoms Cardiovascular: reports: No Symptoms Respiratory: reports: No Symptoms Gastrointestinal: reports: No Symptoms Genitourinary: reports: No Symptoms Neurological: reports: No Symptoms Endocrine: reports: No Symptoms Hematology/Lymphatic: reports: No Symptoms Psychiatric: reports: No Symptoms Physical Examination Vital Signs: Vital Signs Temperature 98.3 F 11/20/16 08:44 Pulse Rate 68 11/20/16 08:44 Respiratory Rate 20 11/20/16 09:00 Blood Pressure 133/60 11/20/16 08:44 O2 Sat by Pulse Oximetry (%) 100 11/20/16 09:00 Constitutional: Yes: No Distress HENT: Yes: Atraumatic Neck: Yes: Supple Cardiovascular: Yes: Regular Rate and Rhythm Respiratory: Yes: CTA Bilaterally Gastrointestinal: Yes: Normal Bowel Sounds Extremities: Yes: Other (left leg in cast, elevated) Peripheral Pulses WNL: Yes Neurological: Yes: Alert, Oriented Problem List - Problems (1) Anemia Assessment/Plan: fu h/h Code(s): D64.9 - ANEMIA, UNSPECIFIED (2) Cellulitis Assessment/Plan: resolved but will get id to look at the leg Code(s): L03.90 - CELLULITIS, UNSPECIFIED Qualifiers: Site of cellulitis: extremity Site of cellulitis of extremity: lower extremity Laterality: left Qualified Code(s): L03.116 - Cellulitis of left lower limb (3) Status post skin flap graft Assessment/Plan: post opday 1 doing well Code(s): Z94.5 - SKIN TRANSPLANT STATUS Assessment/Plan Active Medications Generic Name Dose Route Start Last Admin Trade Name Freq PRN Reason Stop Dose Admin Acetaminophen 325 mg 11/19/16 14:12 Tylenol - PO 11/22/16 14:11 Q4H PRN PAIN Escitalopram Oxalate 20 mg 11/20/16 10:00 11/20/16 10:27 Lexapro - PO 20 mg DAILY [facility] Administration Heparin Sodium (Porcine) 5,000 unit 11/19/16 14:00 11/20/16 14:39 Heparin - SQ 5,000 unit TID [facility] Administration Lactated Ringer's 1,000 mls @ 75 mls/hr 11/19/16 11:15 11/20/16 14:39 Lactated Ringers Solution IV Not Given ASDIR [facility] Cefazolin Sodium 1 gm/ 50 mls @ 100 mls/hr 11/20/16 02:00 11/20/16 19:03 Dextrose IVPB Not Given Q8H-IV [facility] Lactobacillus Acidophilus 1 tab 11/21/16 10:00 Bacid - PO DAILY [facility] Levothyroxine Sodium 75 mcg 11/20/16 07:00 11/20/16 06:22 Synthroid - PO 75 mcg DAILY@0700 [facility] Administration Losartan Potassium 25 mg 11/20/16 10:00 11/20/16 10:34 Cozaar - PO 25 mg DAILY [facility] Administration Oxycodone HCl 5 mg 11/19/16 11:06 11/19/16 20:33 Roxicodone - PO 5 mg Q4H PRN Administration MILD PAIN Oxycodone HCl 5 mg 11/19/16 14:12 Roxicodone - PO Q4H PRN PAIN Pantoprazole Sodium 20 mg 11/20/16 10:00 11/20/16 10:27 Protonix - PO 20 mg DAILY [facility] Administration Prednisone 3 mg 11/20/16 10:00 11/20/16 10:28 Deltasone - PO 3 mg DAILY [facility] Administration PT MELODY GIVEN PREDNISONE FOR FIBROMYALGIA, SHE WANTS TO STOP IT SHE THINKS IT IS NOT WORKING BECAUSE IT IS A SMALL DOSE I WILL NOT TAPER IT ...WILL STOP IT
[2016-11-20] MEDS ORDERED: FENTANYL PATCH WASTE MC PRN (20:20)
[2016-11-20] MEDS ORDERED: fentaNYL 25mcg/hr PATCH.TD72 TD SCH (20:30)
[2016-11-20 22:35] LABS: ALBUMIN 2.6 g/dl (3.4-5.0); ANION GAP 6 (8-16); CALCIUM 9.2 mg/dL (8.5-10.1); CO2 29 mmol/L (21-32); GLUCOSE,RANDOM 100 mg/dL (74-106); SGPT/ALT 9 U/L (12-78)
[2016-11-20 22:37] LABS: ALK PHOS 102 U/L (45-117); BILIRUBIN,TOTAL 0.4 mg/dL (0.2-1.0); CREATININE 0.6 mg/dL (0.55-1.02); SGOT/AST 14 U/L (15-37); TOT PROT 4.9 g/dl (6.4-8.2)
[2016-11-20 22:40] LABS: CPK 38 IU/L (26-192); TROPONIN I < 0.02 ng/ml (0.00-0.05)
[2016-11-20] MEDS ORDERED: diphenhydrAMINE HCL 25 MG CAPSULE (FP) PO ONE (23:00)
[2016-11-21] MEDS: CEFAZOLIN 1 GM in DEXTROSE 5%-WATER - 50 ML IVPB SCH ×3 (02:26→17:22)
[2016-11-21] MEDS: oxyCODONE HCL 5 MG TABLET PO PRN ×2 (02:33→21:29)
[2016-11-21] MEDS: HEPARIN NA (PORCINE) 5,000 UNITS/ML 1ML VIAL SQ SCH ×3 (06:11→21:30)
[2016-11-21] MEDS: LEVOTHYROXINE NA 75 MCG TABLET (FP) PO SCH (06:11)
--- NOTE | 2016-11-21 08:49 | PATH ---
Surgical Pathology Report Patient Name: CHAITANYA BOYD Med. Rec. #: [id number] /Age/Gender: 1925 (Age: 89) / F Account: [id number] Location: [address] [place] [address]/[facility] Taken: 11/19/2016 Received: 11/19/2016 Reported: 11/21/2016 Physicians: Perez Bowman M.D. Specimen(s) Received DEBRIDED TISSUE Clinical History Necrotizing fasciitis left lower leg Final Diagnosis SKIN AND SOFT TISSUE, LEFT LEG, DEBRIDEMENT: ULCERATED AND NECROTIC SKIN AND UNDERLYING SOFT TISSUE ACUTE NECROTIZING INFLAMMATION, GANGRENOUS NECROSIS AND INFLAMED GRANULATION TISSUE. Electronically Signed Jah Ayala M.D. Gross Description Received in formalin labeled "left debridement tissue from leg" is a 3.5 x 2.8 x 0.2 cm aggregate of blanchard-pink skin fragments. Water Reuse Program Manager sections are submitted in one cassette. /11/19/2016 saudi/11/19/2016
[2016-11-21] MEDS ORDERED: PT OWN MED DRAWER 7, Y5N ONE (09:34)
[2016-11-21] MEDS ORDERED: ESCITALOPRAM OXALATE 10 MG TABLET (FP) ONE (09:34)
[2016-11-21] MEDS: PANTOPRAZOLE 20 MG TABLET (FP) PO SCH (09:42)
[2016-11-21] MEDS: LACTOBACILLUS ACIDOPHILUS 1 EACH TAB (FP) PO SCH (09:42)
[2016-11-21] MEDS: DOCUSATE SODIUM 100 MG CAPSULE (FP) PO SCH (09:42)
[2016-11-21] MEDS: LOSARTAN POTASSIUM 25 MG TABLET PO SCH (09:43)
[2016-11-21] MEDS: ESCITALOPRAM OXALATE 20 MG TABLET (FP) PO SCH (09:44)
--- NOTE | 2016-11-21 14:09 | CONSULT ---
Consult Consult Specialty:: infectious diseases Reason for Consultation:: wound infection/post graft - History of Present Illness History of Present Illness: This patient well known to me who was recently dc from hospital,and was treated with abx for wound infection came for skin graft left garcia. , she was admitted after having a fall, big skin tear left garcia and cellulitis patient underwent skin graft and is now doing well patients abx have been continued - History Source History Provided By: Patient Limitations to Obtaining History: No Limitations - Past Medical History Cardio/Vascular: Yes: AFIB, HTN, Hyperlipdemia Gastrointestinal: Yes: Diverticulosis, GERD Infectious Disease: Yes: Other (LIVER ABSCESS) Psych: Yes: Depression Endocrine: Yes: Hypothyroidism - Past Surgical History Past Surgical History: Yes: Hysterectomy - Alcohol/Substance Use Hx Alcohol Use: No - Smoking History Smoking history: Never smoked Have you smoked in the past 12 months: No - Social History Usual Living Arrangement: Alone ADL: Independent History of Recent Travel: No Home Medications - Allergies Allergies/Adverse Reactions: Allergies Allergy/AdvReac Type Severity Reaction Status Date / Time Sulfa (Sulfonamide Allergy Intermediate Hives Verified 10/23/16 12:49 Antibiotics) [Sulfa(Sulfonamide Antibiotics)] chickpeas Allergy Intermediate Swelling Uncoded 10/23/16 12:49 chocolate Allergy Intermediate Swelling Uncoded 10/23/16 12:49 ham Allergy Intermediate Swelling Uncoded 10/23/16 12:49 tuna Allergy Intermediate Swelling Uncoded 10/23/16 12:49 black beans Allergy Uncoded 10/23/16 12:49 - Home Medications Home Medications: Ambulatory Orders Escitalopram Oxalate [Lexapro -] 20 mg PO DAILY tablet 10/27/16 Losartan Potassium [Cozaar -] 25 mg PO DAILY tablet 10/27/16 Oxycodone HCl [Roxicodone -] 5 mg PO Q6H PRN #14 tablet MDD 2 10/29/16 Levothyroxine [Synthroid -] 1 tab PO DAILY 11/18/16 Omeprazole 20 mg PO DAILY 11/18/16 Prednisone [Deltasone -] 3 mg PO DAILY 11/18/16 Review of Systems - Review of Systems Constitutional: reports: No Symptoms Eyes: reports: No Symptoms HENT: reports: No Symptoms Neck: reports: No Symptoms Cardiovascular: reports: No Symptoms Respiratory: reports: No Symptoms Gastrointestinal: reports: No Symptoms Genitourinary: reports: No Symptoms Musculoskeletal: reports: No Symptoms Integumentary: reports: No Symptoms Neurological: reports: No Symptoms Endocrine: reports: No Symptoms Hematology/Lymphatic: reports: No Symptoms Psychiatric: reports: No Symptoms Physical Exam Vital Signs: Vital Signs Temperature 98.3 F 11/21/16 09:00 Pulse Rate 60 11/21/16 09:00 Respiratory Rate 18 11/21/16 09:00 Blood Pressure 140/58 11/21/16 09:00 O2 Sat by Pulse Oximetry (%) 96 11/20/16 21:00 Constitutional: Yes: Well Nourished, No Distress, Calm Neck: Yes: Supple, Trachea Midline Cardiovascular: Yes: Regular Rate and Rhythm Respiratory: Yes: Regular, CTA Bilaterally Gastrointestinal: Yes: Normal Bowel Sounds, Soft Musculoskeletal: Yes: WNL Extremities: Yes: Other Wound/Incision: Yes: Dressing Removed Neurological: Yes: Alert, Oriented Psychiatric: Yes: Alert, Oriented Labs: CBC, BMP 11/20/16 21:30 Assessment/Plan Problem List - Problems (1) Anemia Assessment/Plan: fu h/h Code(s): D64.9 - ANEMIA, UNSPECIFIED (2) Cellulitis Assessment/Plan: resolved but will get id to look at the leg Code(s): L03.90 - CELLULITIS, UNSPECIFIED Qualifiers: Site of cellulitis: extremity Site of cellulitis of extremity: lower extremity Laterality: left Qualified Code(s): L03.116 - Cellulitis of left lower limb (3) Status post skin flap graft Assessment/Plan: post opday 1 doing well Code(s): Z94.5 - SKIN TRANSPLANT STATUS plan continue abx will d/w with plastics rest as per primary team
[2016-11-21] MEDS ORDERED: oxyCODONE HCL 5 MG TABLET PO PRN (15:59)
--- NOTE | 2016-11-21 16:03 | PN ---
Progress Note (short form) - Note Progress Note: Post Op day 2 Post skin graft left leg Uncomfortable in bed rest Plan : PT after Liz Boot application tomorrow OOB in chair with left leg elevation with assistance
--- NOTE | 2016-11-21 16:36 | PN ---
Progress Note, Physician History of Present Illness: doing well - Current Medication List Current Medications: Active Medications Acetaminophen (Tylenol -) 325 mg PO Q4H PRN PRN Reason: PAIN Stop: 11/22/16 14:11 Docusate Sodium (Colace -) 100 mg PO DAILY [facility] Last Admin: 11/21/16 09:42 Dose: 100 mg Escitalopram Oxalate (Lexapro -) 20 mg PO DAILY [facility] Last Admin: 11/21/16 09:44 Dose: 20 mg Heparin Sodium (Porcine) (Heparin -) 5,000 unit SQ TID [facility] Last Admin: 11/21/16 14:12 Dose: 5,000 unit Lactated Ringer's (Lactated Ringers Solution) 1,000 mls @ 75 mls/hr IV ASDIR [facility] Last Admin: 11/20/16 14:39 Dose: Not Given Cefazolin Sodium 1 gm/ (Dextrose) 50 mls @ 100 mls/hr IVPB Q8H-IV [facility] Last Admin: 11/21/16 12:12 Dose: 100 mls/hr Lactobacillus Acidophilus (Bacid -) 1 tab PO DAILY [facility] Last Admin: 11/21/16 09:42 Dose: 1 tab Levothyroxine Sodium (Synthroid -) 75 mcg PO DAILY@0700 [facility] Last Admin: 11/21/16 06:11 Dose: 75 mcg Losartan Potassium (Cozaar -) 25 mg PO DAILY [facility] Last Admin: 11/21/16 09:43 Dose: 25 mg Oxycodone HCl (Roxicodone -) 5 mg PO Q4H PRN PRN Reason: MILD PAIN Last Admin: 11/21/16 02:33 Dose: 5 mg Oxycodone HCl (Roxicodone -) 5 mg PO Q4H PRN PRN Reason: PAIN Oxycodone HCl (Roxicodone -) 5 mg PO Q4H PRN PRN Reason: PAIN Stop: 11/23/16 12:00 Pantoprazole Sodium (Protonix -) 20 mg PO DAILY [facility] Last Admin: 11/21/16 09:42 Dose: 20 mg - Objective Vital Signs: Vital Signs Temperature 99.1 F 11/21/16 14:29 Pulse Rate 58 L 11/21/16 14:29 Respiratory Rate 18 11/21/16 09:00 Blood Pressure 135/67 11/21/16 14:29 O2 Sat by Pulse Oximetry (%) 96 11/20/16 21:00 Constitutional: Yes: No Distress HENT: Yes: Atraumatic Neck: Yes: Supple Cardiovascular: Yes: Regular Rate and Rhythm Respiratory: Yes: CTA Bilaterally Gastrointestinal: Yes: Normal Bowel Sounds Extremities: Yes: Other (llex in dressing) Edema: No Peripheral Pulses WNL: Yes Neurological: Yes: Alert, Oriented Labs: CBC, BMP 11/20/16 21:30 Problem List - Problems (1) Anemia Assessment/Plan: fu h/h Code(s): D64.9 - ANEMIA, UNSPECIFIED (2) Cellulitis Assessment/Plan: resolved Code(s): L03.90 - CELLULITIS, UNSPECIFIED Qualifiers: Site of cellulitis: extremity Site of cellulitis of extremity: lower extremity Laterality: left Qualified Code(s): L03.116 - Cellulitis of left lower limb (3) Status post skin flap graft Assessment/Plan: post opday 2 doing well oli boot and pt eval Code(s): Z94.5 - SKIN TRANSPLANT STATUS
[2016-11-21] MEDS ORDERED: ceFAZolin SODIUM 1 GM VIAL ONE (17:08)
[2016-11-21] MEDS ORDERED: DEXTROSE 5%-WATER - 50 ML IVPB ONE (17:08)
[2016-11-21] MEDS: LACTATED RINGERS SOLUTION 1,000 ML IV SCH (21:25)
[2016-11-21 21:29] LABS: BASOPHIL 0.5 % (0-2.0); EOSINOPHIL 1.5 % (0-4.5); MCH 31.1 pg (25.7-33.7); MCHC 33.6 g/dl (32.0-36.0); MEAN CELL VOLUME 92.8 fl (80-96); MEAN PLT VOLUME 8.2 fl (7.5-11.1); NEUTROPHILS 72.6 % (42.8-82.8); PLATELET COUNT 176 K/MM3 (134-434); RDW 15.9 % (11.6-15.6); WHITE BLOOD COUNT 8.3 K/mm3 (4.0-10.0)
[2016-11-22] MEDS ORDERED: ceFAZolin SODIUM 1 GM VIAL ONE ×3 (01:04→17:23)
[2016-11-22] MEDS ORDERED: DEXTROSE 5%-WATER - 50 ML IVPB ONE ×3 (01:05→17:23)
[2016-11-22] MEDS: CEFAZOLIN 1 GM in DEXTROSE 5%-WATER - 50 ML IVPB SCH ×3 (01:08→17:34)
[2016-11-22] MEDS: LEVOTHYROXINE NA 75 MCG TABLET (FP) PO SCH (06:14)
[2016-11-22] MEDS: HEPARIN NA (PORCINE) 5,000 UNITS/ML 1ML VIAL SQ SCH ×3 (06:14→21:22)
[2016-11-22] MEDS ORDERED: ESCITALOPRAM OXALATE 10 MG TABLET (FP) ONE (10:17)
[2016-11-22] MEDS: DOCUSATE SODIUM 100 MG CAPSULE (FP) PO SCH (10:26)
[2016-11-22] MEDS: LOSARTAN POTASSIUM 25 MG TABLET PO SCH (10:26)
[2016-11-22] MEDS: LACTOBACILLUS ACIDOPHILUS 1 EACH TAB (FP) PO SCH (10:26)
[2016-11-22] MEDS: ESCITALOPRAM OXALATE 20 MG TABLET (FP) PO SCH (10:27)
[2016-11-22] MEDS: PANTOPRAZOLE 20 MG TABLET (FP) PO SCH (10:28)
--- NOTE | 2016-11-22 15:00 | PN ---
Progress Note, Physician History of Present Illness: doing well no complaints - Current Medication List Current Medications: Active Medications Docusate Sodium (Colace -) 100 mg PO DAILY [facility] Last Admin: 11/22/16 10:26 Dose: 100 mg Escitalopram Oxalate (Lexapro -) 20 mg PO DAILY [facility] Last Admin: 11/22/16 10:27 Dose: 20 mg Heparin Sodium (Porcine) (Heparin -) 5,000 unit SQ TID [facility] Last Admin: 11/22/16 06:14 Dose: 5,000 unit Lactated Ringer's (Lactated Ringers Solution) 1,000 mls @ 75 mls/hr IV ASDIR [facility] Last Admin: 11/21/16 21:25 Dose: Not Given Cefazolin Sodium 1 gm/ (Dextrose) 50 mls @ 100 mls/hr IVPB Q8H-IV [facility] Last Admin: 11/22/16 10:27 Dose: 100 mls/hr Lactobacillus Acidophilus (Bacid -) 1 tab PO DAILY [facility] Last Admin: 11/22/16 10:26 Dose: 1 tab Levothyroxine Sodium (Synthroid -) 75 mcg PO DAILY@0700 [facility] Last Admin: 11/22/16 06:14 Dose: 75 mcg Losartan Potassium (Cozaar -) 25 mg PO DAILY [facility] Last Admin: 11/22/16 10:26 Dose: 25 mg Oxycodone HCl (Roxicodone -) 5 mg PO Q4H PRN PRN Reason: MILD PAIN Last Admin: 11/21/16 21:29 Dose: 5 mg Oxycodone HCl (Roxicodone -) 5 mg PO Q4H PRN PRN Reason: PAIN Oxycodone HCl (Roxicodone -) 5 mg PO Q4H PRN PRN Reason: PAIN Stop: 11/23/16 12:00 Pantoprazole Sodium (Protonix -) 20 mg PO DAILY [facility] Last Admin: 11/22/16 10:28 Dose: 20 mg - Objective Vital Signs: Vital Signs Temperature 98.2 F 11/22/16 14:48 Pulse Rate 56 L 11/22/16 14:48 Respiratory Rate 20 11/22/16 06:00 Blood Pressure 140/60 11/22/16 14:48 O2 Sat by Pulse Oximetry (%) 96 11/20/16 21:00 Constitutional: Yes: No Distress Neck: Yes: Supple Cardiovascular: Yes: Regular Rate and Rhythm Respiratory: Yes: Regular, CTA Bilaterally Gastrointestinal: Yes: Normal Bowel Sounds, Soft Musculoskeletal: Yes: WNL Extremities: Yes: Other Wound/Incision: Yes: Dressing Dry and Intact Neurological: Yes: Alert, Oriented Psychiatric: Yes: Alert, Oriented Labs: CBC, BMP 11/21/16 20:30 11/20/16 21:30 Assessment/Plan Problem List - Problems (1) Anemia Assessment/Plan: fu h/h Code(s): D64.9 - ANEMIA, UNSPECIFIED (2) Cellulitis Assessment/Plan: resolved but will get id to look at the leg Code(s): L03.90 - CELLULITIS, UNSPECIFIED Qualifiers: Site of cellulitis: extremity Site of cellulitis of extremity: lower extremity Laterality: left Qualified Code(s): L03.116 - Cellulitis of left lower limb (3) Status post skin flap graft Assessment/Plan: post opday 1 doing well Code(s): Z94.5 - SKIN TRANSPLANT STATUS plan continue abx await for dressing change to see the flap
--- NOTE | 2016-11-22 19:03 | PN ---
Progress Note, Physician History of Present Illness: doing well - Current Medication List Current Medications: Active Medications Docusate Sodium (Colace -) 100 mg PO DAILY [facility] Last Admin: 11/22/16 10:26 Dose: 100 mg Escitalopram Oxalate (Lexapro -) 20 mg PO DAILY [facility] Last Admin: 11/22/16 10:27 Dose: 20 mg Heparin Sodium (Porcine) (Heparin -) 5,000 unit SQ TID [facility] Last Admin: 11/22/16 15:00 Dose: 5,000 unit Lactated Ringer's (Lactated Ringers Solution) 1,000 mls @ 75 mls/hr IV ASDIR [facility] Last Admin: 11/21/16 21:25 Dose: Not Given Cefazolin Sodium 1 gm/ (Dextrose) 50 mls @ 100 mls/hr IVPB Q8H-IV [facility] Last Admin: 11/22/16 17:34 Dose: 100 mls/hr Lactobacillus Acidophilus (Bacid -) 1 tab PO DAILY [facility] Last Admin: 11/22/16 10:26 Dose: 1 tab Levothyroxine Sodium (Synthroid -) 75 mcg PO DAILY@0700 [facility] Last Admin: 11/22/16 06:14 Dose: 75 mcg Losartan Potassium (Cozaar -) 25 mg PO DAILY [facility] Last Admin: 11/22/16 10:26 Dose: 25 mg Oxycodone HCl (Roxicodone -) 5 mg PO Q4H PRN PRN Reason: MILD PAIN Last Admin: 11/21/16 21:29 Dose: 5 mg Oxycodone HCl (Roxicodone -) 5 mg PO Q4H PRN PRN Reason: PAIN Oxycodone HCl (Roxicodone -) 5 mg PO Q4H PRN PRN Reason: PAIN Stop: 11/23/16 12:00 Pantoprazole Sodium (Protonix -) 20 mg PO DAILY [facility] Last Admin: 11/22/16 10:28 Dose: 20 mg - Objective Vital Signs: Vital Signs Temperature 98.4 F 11/22/16 18:29 Pulse Rate 53 L 11/22/16 18:29 Respiratory Rate 20 11/22/16 06:00 Blood Pressure 147/70 11/22/16 18:29 O2 Sat by Pulse Oximetry (%) 96 11/20/16 21:00 Constitutional: Yes: No Distress HENT: Yes: Atraumatic Neck: Yes: Supple Cardiovascular: Yes: Regular Rate and Rhythm Respiratory: Yes: CTA Bilaterally Gastrointestinal: Yes: Normal Bowel Sounds Extremities: Yes: Other (llex) Neurological: Yes: Alert, Oriented Labs: CBC, BMP 11/21/16 20:30 11/20/16 21:30 Problem List - Problems (1) Anemia Assessment/Plan: fu h/h Code(s): D64.9 - ANEMIA, UNSPECIFIED (2) Cellulitis Assessment/Plan: resolved on abx to cover infection DC ON PO ABX FU MD AT SNF Code(s): L03.90 - CELLULITIS, UNSPECIFIED Qualifiers: Site of cellulitis: extremity Site of cellulitis of extremity: lower extremity Laterality: left Qualified Code(s): L03.116 - Cellulitis of left lower limb (3) Status post skin flap graft Assessment/Plan: post op day 3 doing well oli boot applied pt afebrile, clinically stable dc to snf am DR ROMAN TO GIVE DISCHARGE INSTRUCTIONS ON WOUND CARE AND DRESSING CHANGE FOR THE CUSTODIAL Code(s): Z94.5 - SKIN TRANSPLANT STATUS
[2016-11-22] MEDS: LACTATED RINGERS SOLUTION 1,000 ML IV SCH (21:19)
[2016-11-23] MEDS ORDERED: DEXTROSE 5%-WATER - 50 ML IVPB ONE ×2 (01:13→09:40)
[2016-11-23] MEDS ORDERED: ceFAZolin SODIUM 1 GM VIAL ONE ×2 (01:13→09:40)
[2016-11-23] MEDS: CEFAZOLIN 1 GM in DEXTROSE 5%-WATER - 50 ML IVPB SCH ×2 (01:30→09:58)
[2016-11-23] MEDS: LEVOTHYROXINE NA 75 MCG TABLET (FP) PO SCH (06:16)
[2016-11-23] MEDS: HEPARIN NA (PORCINE) 5,000 UNITS/ML 1ML VIAL SQ SCH ×2 (06:16→14:05)
[2016-11-23 07:51] LABS: BASOPHIL 0.8 % (0-2.0); EOSINOPHIL 2.5 % (0-4.5); MCH 30.8 pg (25.7-33.7); MCHC 33.4 g/dl (32.0-36.0); MEAN CELL VOLUME 92.4 fl (80-96); PLATELET COUNT 172 K/MM3 (134-434); RDW 15.7 % (11.6-15.6); WHITE BLOOD COUNT 7.2 K/mm3 (4.0-10.0)
[2016-11-23 08:29] LABS: ALBUMIN 2.7 g/dl (3.4-5.0); ALK PHOS 101 U/L (45-117); ANION GAP 7 (8-16); BILIRUBIN,TOTAL 0.9 mg/dL (0.2-1.0); CALCIUM 9.3 mg/dL (8.5-10.1); CO2 31 mmol/L (21-32); CREATININE 0.5 mg/dL (0.55-1.02); GLUCOSE,RANDOM 84 mg/dL (74-106); SGOT/AST 16 U/L (15-37); SGPT/ALT 7 U/L (12-78); TOT PROT 5.3 g/dl (6.4-8.2)
[2016-11-23] MEDS ORDERED: ESCITALOPRAM OXALATE 10 MG TABLET (FP) ONE (09:40)
--- NOTE | 2016-11-23 09:50 | PN ---
Progress Note (short form) - Note Progress Note: Post Op Day 4 Awake alert, coherent, no c/o calf cramps. No c/o foot pain, coldness ( Liz Boot applied yesterday) Mood : slightly depressed, anxious, worried. ( spend significant time conversing and explaining reason for SNF, todays discharge decision, patient thanked for the time spent...reason for discharge: Afebrile, no calf pain, no chest problem) Needs SNF for Re-hab Liz boot application , circulation foot is intact Plan : 1. Continue assistance when ambulating, ambulate as tolerated 2. Leg elevation in bed and chair 3. Continue assistive ambulation , not strong yet needs more time for Rehab. 4 . D/C antibiotics 5. Continue Nutritional support with supplements including High protein supplements 6. Observe circulation to left foot, if needed for circulation remove Liz boot and apply Coban compression, patient recent graft surgery and will and graft will be lost if leg swells 7. Keep donor area left thigh dry dressing, do not remove xeroform, may have some bleeding on dressing, to be expected F/U on Friday
[2016-11-23] MEDS: PANTOPRAZOLE 20 MG TABLET (FP) PO SCH (09:58)
[2016-11-23] MEDS: LOSARTAN POTASSIUM 25 MG TABLET PO SCH (09:58)
[2016-11-23] MEDS: ESCITALOPRAM OXALATE 20 MG TABLET (FP) PO SCH (09:58)
[2016-11-23] MEDS: LACTOBACILLUS ACIDOPHILUS 1 EACH TAB (FP) PO SCH (09:58)
[2016-11-23] MEDS: DOCUSATE SODIUM 100 MG CAPSULE (FP) PO SCH (09:58)
[2016-11-23] MEDS ORDERED: BACITRACIN 15 GM TUBE TOPICAL OINTMENT TP SCH (12:30)
--- NOTE | 2016-11-23 13:03 | DS ---
Physical Examination Vital Signs: Vital Signs Temperature 98.4 F 11/23/16 06:13 Pulse Rate 62 11/23/16 10:00 Respiratory Rate 18 11/23/16 10:00 Blood Pressure 146/71 11/23/16 10:00 O2 Sat by Pulse Oximetry (%) 96 11/23/16 09:00 Labs: CBC, BMP 11/23/16 06:42 11/23/16 06:42 Discharge Summary Reason For Visit: NECROTIZING FASCIITIS LEFT LOWER LEG Current Active Problems Status post skin flap graft (Acute) - Instructions Diet, Activity, Other Instructions: DR ROMAN TO GIVE DISCHARGE INSTRUCTIONS ON WOUND CARE AND DRESSING CHANGE FOR THE RETIREMENT, ALSO NEED TO LET PATIENT KNOW ABOUT FOLLOW UP OUT PATIENT FU CBC AT SNF - Home Medications Comprehensive Discharge Medication List: Ambulatory Orders Escitalopram Oxalate [Lexapro -] 20 mg PO DAILY tablet 10/27/16 Losartan Potassium [Cozaar -] 25 mg PO DAILY tablet 10/27/16 Oxycodone HCl [Roxicodone -] 5 mg PO Q6H PRN #14 tablet MDD 2 10/29/16 Levothyroxine [Synthroid -] 1 tab PO DAILY 11/18/16 Omeprazole 20 mg PO DAILY 11/18/16 Prednisone [Deltasone -] 3 mg PO DAILY 11/18/[address] roman note for details of wound care dc abx as per dr roman
[2016-11-23 15:05] VITALS: BP 129/75; PULSE 57; TEMP 98.2
== END 2016-11-23 17:37 | DRG 577 ==
LOC: JASUSAT 07:44 → JSAMEDAYSX 11:33 → J6S 19:50
PROVIDERS: ADMIT Internal Medicine; ATTEND Internal Medicine
PROC: 0HRLX74 Replacement of Left Lower Leg Skin with Autologous Tissue Substitute, Partial Thickness, External Approach (ICD-10-PCS; 2016-11-19)
PROC: 0HBJXZZ Excision of Left Upper Leg Skin, External Approach (ICD-10-PCS; 2016-11-19)
PROC: 0JBP0ZZ Excision of Left Lower Leg Subcutaneous Tissue and Fascia, Open Approach (ICD-10-PCS; principal; 2016-11-19 09:00)
DX: S81.802S Unspecified open wound, left lower leg, sequela (principal); L03.116 Cellulitis of left lower limb; I48.91 Unspecified atrial fibrillation; I10 Essential (primary) hypertension; E78.5 Hyperlipidemia, unspecified; K21.9 Gastro-esophageal reflux disease without esophagitis; K57.90 Diverticulosis of intestine, part unspecified, without perforation or abscess without bleeding; M79.7 Fibromyalgia; E03.9 Hypothyroidism, unspecified; F32.9 Major depressive disorder, single episode, unspecified; D64.9 Anemia, unspecified; Z94.5 Skin transplant status; W18.39XS Other fall on same level, sequela
CPT/HCPCS: 36415; 80053; 84484; 85025; 88304-TC; 94760; 97116-GP; 97162-GP; J1644